=== PATIENT | female | born 1935 | race Caucasian/White ===

== ENCOUNTER 2017-07-01 17:39 | Emergency (ER) | payer MEDICARE, OTHER ==
[~2017-07-01] VITALS: Ht 152.4 cm; Wt 76.2 kg
[~2017-07-01 17:39] MED LIST: ALBU90OI6 INH; CEPH500 PO; CIPR250 PO; CITA20; CITA20 PO; CITALOPRAM HYDROBROM; CITALOPRAM PO; CONEST1.25; CYAN1000 PO; CYAN1000I; CYAN1000I IM; Cipro500 MG PO; ESTR1; ESTR2 PO; ESTRADIOL PO; HYDACE5 PO; IBUP800; LANS30EC; LEVSOD100 PO; LEVSOD88; LIDO5TP TOP; LISI5 PO; LORA10ER; METCAR500 PO; METF500 PO; METF500C PO; METO10 PO; MULTI VITAMIN1 EACH PO; MULVITMINF; Macrobid 100 M100 MG PO; NAPR550 PO; Norco 5-325 Ta1 EACH PO; OXYB5 PO; OXYB5ER PO; POTCHL20ER; POTCHL20ER PO; PRAV20 PO; PROVASTATIN; Pyridium200 MG PO; TOLT4; TRAM50 PO; TRIA80TC TOP; TRIHYD253A; TRIHYD253A PO; TRIHYD253B; TRIHYD253B PO; Ultram50 MG PO; VITAMIN B 12 IM; Zofran Odt4 MG PO; [UNRECOGNIZED DRUG - OTHER]; [UNRECOGNIZED DRUG - REMARK]
[2017-07-01 19:01] LABS: BASOPHILS ABSOLUTE AUTO 0.02 K/mm3 (0.00-0.23); BASOPHILS PERCENT AUTO 0 % (0-2); EOSINOPHILS ABSOLUTE AUTO 0.13 K/mm3 (0.00-0.68); EOSINOPHILS PERCENT AUTO 2 % (0-6); Hemoglobin 12.4 g/dL (11.5-16.0); IMMATURE GRAN ABSOLUTE AUTO 0.01 K/mm3 (0.00-0.10); IMMATURE GRAN PERCENT AUTO 0 % (0-1); LYMPHOCYTES ABSOLUTE AUTO 1.16 K/mm3 (0.84-5.20); LYMPHOCYTES PERCENT AUTO 15 % (21-46); MONOCYTES ABSOLUTE AUTO 0.66 K/mm3 (0.16-1.47); MONOCYTES PERCENT AUTO 9 % (4-13); Mean Corpuscular HGB 28.4 pg (26.0-34.0); Mean Corpuscular HGB Conc 32.6 g/dL (31.5-36.5); Mean Corpuscular Volume 87 fL (80-100); Mean Platelet Volume 12.7 fL (9.1-12.4); NEUTROPHILS ABSOLUTE AUTO 5.55 K/mm3 (1.96-9.15); NEUTROPHILS PERCENT AUTO 74 % (41-73); Platelet Count 206 K/mm3 (150-400); RDW Coefficient Variation 12.8 % (11.7-14.2); RDW Standard Deviation 40.9 fL (35.1-46.3); Red Blood Cell Count 4.37 M/mm3 (3.80-5.20); White Blood Cell Count 7.53 K/mm3 (4.00-11.30)
[2017-07-01] MEDS ORDERED: Augmentin 875-1 EACH PO (19:37)
[2017-07-01] MEDS ORDERED: Pedi-Dri 100,0060 GM TOP (19:37)
[2017-07-01 19:42] LABS: Alanine Aminotransfer (ALT/SGP 18 U/L (12-78); Albumin, Blood 3.7 g/dL (3.4-5.0); Albumin/Globulin Ratio 1.1 (0.8-1.8); Alk Phos 89 U/L (50-136); Anion Gap 7 mmol/L (6-16); Aspartate Aminotrans (AST/SGOT 17 U/L (12-37); Bilirubin, Total 0.3 mg/dL (0.1-1.0); Blood Urea Nitrogen 30 mg/dL (8-24); Bun/Creatinine Ratio 60.1 (12.0-20.0); CO2, Blood 28 mmol/L (21-32); Calcium, Blood 9.1 mg/dL (8.5-10.1); Chloride, Blood 104 mmol/L (98-108); Globulin, Blood 3.5 g/dL (2.2-4.0); Glomerular Filtration Rate >60 (60-); Glucose, Blood 168 mg/dL (70-99); Potassium, Blood 3.3 mmol/L (3.5-5.5); Sodium, Blood 139 mmol/L (136-145); Total Protein, Blood 7.2 g/dL (6.4-8.2)
[2017-07-01] MEDS ORDERED: Bactrim Ds Tab1 EACH PO (20:05)
[2018-04-28] MEDS ORDERED: Bactrim Ds Tab1 EACH PO (12:52)
[2018-04-28] MEDS ORDERED: Pedi-Dri 100,0060 GM TOP (12:52)
[2018-04-28] MEDS ORDERED: CEPH500 PO (12:52)
== END 2017-07-01 20:16 | disposition home or self-care (01) ==
LOC: ER 17:39
PROVIDERS: Emergency Medicine
DX: L03.116 Cellulitis of left lower limb (principal); L03.115 Cellulitis of right lower limb; E11.9 Type 2 diabetes mellitus without complications; I10 Essential (primary) hypertension; E78.5 Hyperlipidemia, unspecified; E03.9 Hypothyroidism, unspecified; Z90.710 Acquired absence of both cervix and uterus; Z90.49 Acquired absence of other specified parts of digestive tract
CPT/HCPCS: 36415; 80053; 83880; 85025; 99283

== ENCOUNTER 2017-10-04 17:15 | Emergency (ER) | payer MEDICARE, OTHER ==
[~2017-10-04] VITALS: Ht 154.9 cm; Wt 69.4 kg
[~2017-10-04 17:15] MED LIST changes: +Augmentin 875-1 EACH PO; +Bactrim Ds Tab1 EACH PO; +Pedi-Dri 100,0060 GM TOP
[2017-10-04] MEDS ORDERED: CYAN1000I IM (17:39)
[2017-10-04] MEDS ORDERED: OXYB5 PO (17:40)
[2017-10-04 18:36] LABS: BASOPHILS ABSOLUTE AUTO 0.03 K/mm3 (0.00-0.23); BASOPHILS PERCENT AUTO 0 % (0-2); EOSINOPHILS ABSOLUTE AUTO 0.14 K/mm3 (0.00-0.68); EOSINOPHILS PERCENT AUTO 2 % (0-6); Hematocrit 36.4 % (33.0-51.0); IMMATURE GRAN ABSOLUTE AUTO 0.03 K/mm3 (0.00-0.10); IMMATURE GRAN PERCENT AUTO 0 % (0-1); LYMPHOCYTES PERCENT AUTO 28 % (21-46); MONOCYTES ABSOLUTE AUTO 0.75 K/mm3 (0.16-1.47); MONOCYTES PERCENT AUTO 10 % (4-13); Mean Corpuscular HGB 28.7 pg (26.0-34.0); Mean Corpuscular Volume 87 fL (80-100); Mean Platelet Volume 12.5 fL (9.1-12.4); NEUTROPHILS ABSOLUTE AUTO 4.59 K/mm3 (1.96-9.15); NEUTROPHILS PERCENT AUTO 59 % (41-73); Platelet Count 217 K/mm3 (150-400); Red Blood Cell Count 4.18 M/mm3 (3.80-5.20); White Blood Cell Count 7.74 K/mm3 (4.00-11.30)
[2017-10-04 18:56] LABS: Alanine Aminotransfer (ALT/SGP 16 U/L (12-78); Albumin, Blood 3.6 g/dL (3.4-5.0); Alk Phos 95 U/L (50-136); Anion Gap 6 mmol/L (6-16); Aspartate Aminotrans (AST/SGOT 17 U/L (12-37); Bilirubin, Total 0.6 mg/dL (0.1-1.0); Blood Urea Nitrogen 22 mg/dL (8-24); Bun/Creatinine Ratio 39.9 (12.0-20.0); CO2, Blood 27 mmol/L (21-32); Calcium, Blood 9.1 mg/dL (8.5-10.1); Chloride, Blood 109 mmol/L (98-108); Creatinine, Blood 0.55 mg/dL (0.40-1.00); Globulin, Blood 3.5 g/dL (2.2-4.0); Glomerular Filtration Rate >60 (60-); Glucose, Blood 96 mg/dL (70-99); Potassium, Blood 3.3 mmol/L (3.5-5.5); Sodium, Blood 142 mmol/L (136-145); Total Protein, Blood 7.1 g/dL (6.4-8.2)
== END 2017-10-04 19:46 | disposition home or self-care (01) ==
LOC: ER 17:15
PROVIDERS: Emergency Medicine
DX: R10.13 Epigastric pain (principal); Z91.048 Other nonmedicinal substance allergy status; Z88.8 Allergy status to other drugs, medicaments and biological substances; Z79.899 Other long term (current) drug therapy; Z79.2 Long term (current) use of antibiotics; E11.9 Type 2 diabetes mellitus without complications; I10 Essential (primary) hypertension
CPT/HCPCS: 36415; 74018; 80053; 83690; 85025; 93005; 93010; 99283

== ENCOUNTER 2017-10-15 10:19 | Emergency (ER) | payer MEDICARE, OTHER ==
[~2017-10-15] VITALS: Ht 154.9 cm; Wt 70.8 kg
[2017-10-15] MEDS ORDERED: FURO40 PO (10:29)
== END 2017-10-15 11:40 | disposition home or self-care (01) ==
LOC: ER 10:19
DX: M25.561 Pain in right knee (principal); E11.9 Type 2 diabetes mellitus without complications; I10 Essential (primary) hypertension; D64.9 Anemia, unspecified; Z91.048 Other nonmedicinal substance allergy status; Z88.6 Allergy status to analgesic agent; Z88.8 Allergy status to other drugs, medicaments and biological substances; Z79.899 Other long term (current) drug therapy
CPT/HCPCS: 36415; 73562-RT; 93971; 99284

== ENCOUNTER 2018-05-22 18:08 | Emergency (ER) | payer MEDICARE, OTHER ==
[~2018-05-22] VITALS: Ht 160 cm; Wt 81.7 kg
[~2018-05-22 18:08] MED LIST changes: +FURO40 PO
[2018-05-22 20:16] LABS: Source, Urine Clean Catch
[2018-05-22 20:21] LABS: Bilirubin, Urine Neg (Neg); Blood, Urine 1+ (Neg); Glucose Qualitative, Urine Neg (Neg); Ketones, Urine Neg (Neg); Leukocyte Esterase, Urine 1+ (Neg); Nitrite, Urine Pos (Neg); Protein, Urine Neg (Neg); Urobilinogen, Urine NORM (Normal)
[2018-05-22 20:30] LABS: BASOPHILS ABSOLUTE AUTO 0.03 K/mm3 (0.00-0.23); BASOPHILS PERCENT AUTO 0 % (0-2); EOSINOPHILS ABSOLUTE AUTO 0.06 K/mm3 (0.00-0.68); EOSINOPHILS PERCENT AUTO 0 % (0-6); Hematocrit 37.6 % (33.0-51.0); Hemoglobin 12.2 g/dL (11.5-16.0); IMMATURE GRAN ABSOLUTE AUTO 0.03 K/mm3 (0.00-0.10); IMMATURE GRAN PERCENT AUTO 0 % (0-1); LYMPHOCYTES ABSOLUTE AUTO 1.85 K/mm3 (0.84-5.20); LYMPHOCYTES PERCENT AUTO 14 % (21-46); MONOCYTES ABSOLUTE AUTO 1.27 K/mm3 (0.16-1.47); MONOCYTES PERCENT AUTO 10 % (4-13); Mean Corpuscular HGB 28.7 pg (26.0-34.0); Mean Corpuscular HGB Conc 32.4 g/dL (31.5-36.5); Mean Corpuscular Volume 89 fL (80-100); Mean Platelet Volume 11.9 fL (9.1-12.4); NEUTROPHILS ABSOLUTE AUTO 10.17 K/mm3 (1.96-9.15); NEUTROPHILS PERCENT AUTO 76 % (41-73); Platelet Count 215 K/mm3 (150-400); RDW Coefficient Variation 13.1 % (11.7-14.2); RDW Standard Deviation 42.4 fL (35.1-46.3); Red Blood Cell Count 4.25 M/mm3 (3.80-5.20); White Blood Cell Count 13.41 K/mm3 (4.00-11.30)
[2018-05-22 20:41] LABS: Appearance, Urine Clear (Clear); Color, Urine Yellow (P-Yellow)
[2018-05-22 20:42] LABS: Bacteria Many /hpf; Red Blood Cells, Urine 0-2 /hpf (0-2); Squamous Epithelial Cells Mod /hpf (Few)
[2018-05-22 20:57] LABS: Anion Gap 6 mmol/L (6-16); Blood Urea Nitrogen 23 mg/dL (8-24); Bun/Creatinine Ratio 42.4 (12.0-20.0); CO2, Blood 25 mmol/L (21-32); Calcium, Blood 8.7 mg/dL (8.5-10.1); Chloride, Blood 107 mmol/L (98-108); Creatinine, Blood 0.54 mg/dL (0.40-1.00); Glomerular Filtration Rate >60 (60-); Glucose, Blood 107 mg/dL (70-99); Potassium, Blood 3.5 mmol/L (3.5-5.5); Sodium, Blood 138 mmol/L (136-145)
[2018-05-22] MEDS ORDERED: Ultram50 MG PO (21:18)
[2018-05-22] MEDS ORDERED: Bactrim Ds Tab1 EACH PO (21:18)
== END 2018-05-22 21:45 | disposition home or self-care (01) ==
LOC: ER 18:08
PROVIDERS: Emergency Medicine
DX: N39.0 Urinary tract infection, site not specified (principal); I10 Essential (primary) hypertension; E11.9 Type 2 diabetes mellitus without complications; Z90.710 Acquired absence of both cervix and uterus; Z90.49 Acquired absence of other specified parts of digestive tract
CPT/HCPCS: 36415; 73140; 80048; 81001; 85025; 87077; 87086; 87186; 99283-25

== ENCOUNTER 2018-05-24 12:20 | Emergency (ER) | payer MEDICARE, OTHER ==
[~2018-05-24] VITALS: Ht 160 cm; Wt 71.7 kg
[2018-05-24] MEDS ORDERED: Voltaren100 GM TOP (13:45)
== END 2018-05-24 13:55 | disposition home or self-care (01) ==
LOC: ER 12:20
DX: S70.01XA Contusion of right hip, initial encounter (principal); S70.11XA Contusion of right thigh, initial encounter; W18.30XA Fall on same level, unspecified, initial encounter; Z91.048 Other nonmedicinal substance allergy status; Z88.8 Allergy status to other drugs, medicaments and biological substances; Z79.899 Other long term (current) drug therapy; E11.9 Type 2 diabetes mellitus without complications; I10 Essential (primary) hypertension; D64.9 Anemia, unspecified
CPT/HCPCS: 73502; 73562-RT; 96372; 99283-25; J1885

== ENCOUNTER 2018-06-02 22:25 | Emergency (ER) | payer MEDICARE, OTHER ==
[~2018-06-02] VITALS: Ht 160 cm; Wt 73.5 kg
[~2018-06-02 22:25] MED LIST changes: +Voltaren100 GM TOP
== END 2018-06-03 00:26 | disposition left against medical advice (07) ==
LOC: ER 22:25
DX: Z53.21 Procedure and treatment not carried out due to patient leaving prior to being seen by health care provider (principal)

== ENCOUNTER 2018-06-16 08:44 | Emergency (ER) | payer MEDICARE, OTHER ==
[~2018-06-16] VITALS: Ht 157.5 cm; Wt 71.7 kg
[2018-06-16] MEDS ORDERED: FLUC150A PO (09:09)
[2018-06-16] MEDS ORDERED: Pedi-Dri 100,0060 GM (09:22)
== END 2018-06-16 10:12 | disposition home or self-care (01) ==
LOC: ER 08:44
DX: B37.2 Candidiasis of skin and nail (principal); Z91.048 Other nonmedicinal substance allergy status; Z88.8 Allergy status to other drugs, medicaments and biological substances; Z79.899 Other long term (current) drug therapy; E11.9 Type 2 diabetes mellitus without complications; I10 Essential (primary) hypertension; D64.9 Anemia, unspecified
CPT/HCPCS: 99282

== ENCOUNTER 2018-06-17 00:05 | Emergency (ER) | payer MEDICARE, OTHER ==
[~2018-06-17] VITALS: Ht 160 cm; Wt 71.2 kg
[~2018-06-17 00:05] MED LIST changes: +FLUC150A PO; +Pedi-Dri 100,0060 GM
[2018-06-17 03:20] LABS: BASOPHILS ABSOLUTE AUTO 0.01 K/mm3 (0.00-0.23); BASOPHILS PERCENT AUTO 0 % (0-2); EOSINOPHILS ABSOLUTE AUTO 0.08 K/mm3 (0.00-0.68); EOSINOPHILS PERCENT AUTO 1 % (0-6); Hematocrit 36.7 % (33.0-51.0); Hemoglobin 11.8 g/dL (11.5-16.0); IMMATURE GRAN ABSOLUTE AUTO 0.03 K/mm3 (0.00-0.10); IMMATURE GRAN PERCENT AUTO 0 % (0-1); LYMPHOCYTES ABSOLUTE AUTO 1.83 K/mm3 (0.84-5.20); LYMPHOCYTES PERCENT AUTO 26 % (21-46); MONOCYTES ABSOLUTE AUTO 0.74 K/mm3 (0.16-1.47); MONOCYTES PERCENT AUTO 10 % (4-13); Mean Corpuscular HGB Conc 32.2 g/dL (31.5-36.5); Mean Corpuscular Volume 90 fL (80-100); Mean Platelet Volume 11.2 fL (9.1-12.4); NEUTROPHILS ABSOLUTE AUTO 4.42 K/mm3 (1.96-9.15); NEUTROPHILS PERCENT AUTO 62 % (41-73); Platelet Count 226 K/mm3 (150-400); RDW Coefficient Variation 13.1 % (11.7-14.2); RDW Standard Deviation 43.4 fL (35.1-46.3); Red Blood Cell Count 4.07 M/mm3 (3.80-5.20); White Blood Cell Count 7.11 K/mm3 (4.00-11.30)
[2018-06-17 03:37] LABS: Alanine Aminotransfer (ALT/SGP 14 U/L (12-78); Albumin, Blood 3.6 g/dL (3.4-5.0); Alk Phos 90 U/L (50-136); Anion Gap 8 mmol/L (6-16); Aspartate Aminotrans (AST/SGOT 15 U/L (12-37); Bilirubin, Total 0.4 mg/dL (0.1-1.0); Blood Urea Nitrogen 23 mg/dL (8-24); Bun/Creatinine Ratio 40.1 (12.0-20.0); CO2, Blood 25 mmol/L (21-32); Calcium, Blood 8.4 mg/dL (8.5-10.1); Chloride, Blood 108 mmol/L (98-108); Creatinine, Blood 0.57 mg/dL (0.40-1.00); Globulin, Blood 3.6 g/dL (2.2-4.0); Glomerular Filtration Rate >60 (60-); Glucose, Blood 114 mg/dL (70-99); Potassium, Blood 3.8 mmol/L (3.5-5.5); Sodium, Blood 141 mmol/L (136-145); Total Protein, Blood 7.2 g/dL (6.4-8.2)
== END 2018-06-17 04:00 | disposition home or self-care (01) ==
LOC: ER 00:05
PROVIDERS: Emergency Medicine
DX: R10.84 Generalized abdominal pain (principal); R19.7 Diarrhea, unspecified; E11.9 Type 2 diabetes mellitus without complications; I10 Essential (primary) hypertension; Z91.048 Other nonmedicinal substance allergy status; Z88.8 Allergy status to other drugs, medicaments and biological substances; Z79.899 Other long term (current) drug therapy
CPT/HCPCS: 36415; 80053; 85025; 99284

== ENCOUNTER 2018-06-22 23:06 | Emergency (ER) | payer MEDICARE, OTHER ==
[~2018-06-22] VITALS: Ht 157.5 cm; Wt 68.0 kg
[2018-06-22 23:29] LABS: Source, Urine Clean Catch
[2018-06-22 23:52] LABS: BASOPHILS ABSOLUTE AUTO 0.02 K/mm3 (0.00-0.23); BASOPHILS PERCENT AUTO 0 % (0-2); EOSINOPHILS ABSOLUTE AUTO 0.05 K/mm3 (0.00-0.68); EOSINOPHILS PERCENT AUTO 1 % (0-6); Hematocrit 37.4 % (33.0-51.0); IMMATURE GRAN ABSOLUTE AUTO 0.03 K/mm3 (0.00-0.10); IMMATURE GRAN PERCENT AUTO 0 % (0-1); LYMPHOCYTES ABSOLUTE AUTO 1.24 K/mm3 (0.84-5.20); LYMPHOCYTES PERCENT AUTO 13 % (21-46); MONOCYTES ABSOLUTE AUTO 1.26 K/mm3 (0.16-1.47); MONOCYTES PERCENT AUTO 13 % (4-13); Mean Corpuscular HGB 28.2 pg (26.0-34.0); Mean Corpuscular HGB Conc 32.1 g/dL (31.5-36.5); Mean Corpuscular Volume 88 fL (80-100); Mean Platelet Volume 11.4 fL (9.1-12.4); NEUTROPHILS ABSOLUTE AUTO 6.91 K/mm3 (1.96-9.15); NEUTROPHILS PERCENT AUTO 73 % (41-73); Platelet Count 217 K/mm3 (150-400); RDW Coefficient Variation 13.2 % (11.7-14.2); RDW Standard Deviation 42.2 fL (35.1-46.3); Red Blood Cell Count 4.26 M/mm3 (3.80-5.20); White Blood Cell Count 9.51 K/mm3 (4.00-11.30)
[2018-06-23 00:13] LABS: Alanine Aminotransfer (ALT/SGP 18 U/L (12-78); Albumin, Blood 3.5 g/dL (3.4-5.0); Albumin/Globulin Ratio 0.9 (0.8-1.8); Alk Phos 96 U/L (50-136); Anion Gap 8 mmol/L (6-16); Aspartate Aminotrans (AST/SGOT 14 U/L (12-37); Bilirubin, Total 0.5 mg/dL (0.1-1.0); Blood Urea Nitrogen 21 mg/dL (8-24); CO2, Blood 26 mmol/L (21-32); Calcium, Blood 8.4 mg/dL (8.5-10.1); Chloride, Blood 106 mmol/L (98-108); Creatinine, Blood 0.68 mg/dL (0.40-1.00); Globulin, Blood 3.8 g/dL (2.2-4.0); Glomerular Filtration Rate >60 (60-); Glucose, Blood 191 mg/dL (70-99); Potassium, Blood 3.6 mmol/L (3.5-5.5); Sodium, Blood 140 mmol/L (136-145); Total Protein, Blood 7.3 g/dL (6.4-8.2)
[2018-06-23 00:43] LABS: Bilirubin, Urine Neg (Neg); Blood, Urine 1+ (Neg); Glucose Qualitative, Urine Neg (Neg); Ketones, Urine Neg (Neg); Leukocyte Esterase, Urine 3+ (Neg); Nitrite, Urine Pos (Neg); Protein, Urine 2+ (Neg); Urobilinogen, Urine NORM (Normal)
[2018-06-23 00:45] LABS: Appearance, Urine Cloudy (Clear); Color, Urine Yellow (P-Yellow)
[2018-06-23 00:49] LABS: White Blood Cells, Urine 50-100 /hpf (0-5)
[2018-06-23 00:50] LABS: Bacteria Many /hpf; Red Blood Cells, Urine 0-2 /hpf (0-2); Squamous Epithelial Cells Few /hpf (Few)
[2018-06-23] MEDS ORDERED: ONDA4ODT MM (00:59)
[2018-06-23] MEDS ORDERED: CEPH500 PO (00:59)
== END 2018-06-23 01:21 | disposition home or self-care (01) ==
LOC: ER 23:06
PROVIDERS: Emergency Medicine
DX: N39.0 Urinary tract infection, site not specified (principal); E11.9 Type 2 diabetes mellitus without complications; I10 Essential (primary) hypertension; Z91.048 Other nonmedicinal substance allergy status; Z88.6 Allergy status to analgesic agent; Z88.8 Allergy status to other drugs, medicaments and biological substances; Z79.899 Other long term (current) drug therapy
CPT/HCPCS: 36415; 74022; 80053; 81001; 85025; 87077; 87086; 87186; 99283-25; J2405; P9612

== ENCOUNTER 2018-08-30 13:58 | Emergency (ER) | payer MEDICARE, OTHER ==
[~2018-08-30] VITALS: Ht 152.4 cm; Wt 68.0 kg
[~2018-08-30 13:58] MED LIST changes: +ONDA4ODT MM
[2018-08-30] MEDS ORDERED: Diflucan100 MG PO (15:46)
[2018-08-30] MEDS ORDERED: Pedi-Dri 100,0060 GM TOP (15:46)
== END 2018-08-30 16:25 | disposition home or self-care (01) ==
LOC: ER 13:58
DX: B37.2 Candidiasis of skin and nail (principal); Z91.018 Allergy to other foods; Z88.8 Allergy status to other drugs, medicaments and biological substances; Z88.6 Allergy status to analgesic agent; Z79.899 Other long term (current) drug therapy; E11.9 Type 2 diabetes mellitus without complications; I10 Essential (primary) hypertension
CPT/HCPCS: 99282

== ENCOUNTER 2018-09-13 07:31 | Emergency (ER) | payer MEDICARE, OTHER ==
[~2018-09-13] VITALS: Ht 160 cm; Wt 72.6 kg
[~2018-09-13 07:31] MED LIST changes: +Diflucan100 MG PO
[2018-09-13 08:20] LABS: Source, Urine Clean Catch
[2018-09-13 08:32] LABS: Bilirubin, Urine Neg (Neg); Blood, Urine Neg (Neg); Color, Urine No Color (P-Yellow); Glucose Qualitative, Urine Neg (Neg); Ketones, Urine Neg (Neg); Leukocyte Esterase, Urine Neg (Neg); Nitrite, Urine Neg (Neg); Protein, Urine Neg (Neg); Specific Gravity, Urine 1.005 (1.003-1.022); Urobilinogen, Urine NORM (Normal); pH, Urine 6.5 (5.0-8.0)
[2018-09-13 08:33] LABS: Appearance, Urine Clear (Clear)
[2018-09-13 09:02] LABS: Source, Urine Clean Catch
[2018-09-13 09:09] LABS: Bilirubin, Urine Neg (Neg); Blood, Urine Neg (Neg); Glucose Qualitative, Urine Neg (Neg); Ketones, Urine Neg (Neg); Leukocyte Esterase, Urine 1+ (Neg); Nitrite, Urine Pos (Neg); Protein, Urine Neg (Neg); Urobilinogen, Urine 1+ (Normal)
[2018-09-13 09:15] LABS: Appearance, Urine Hazy (Clear); Bacteria Mod /hpf; Color, Urine Yellow (P-Yellow); Red Blood Cells, Urine Not Seen /hpf (0-2); Squamous Epithelial Cells Few /hpf (Few)
[2018-09-13] MEDS ORDERED: Keflex500 MG PO (09:41)
== END 2018-09-13 10:24 | disposition home or self-care (01) ==
LOC: ER 07:31
PROVIDERS: Emergency Medicine
DX: N39.0 Urinary tract infection, site not specified (principal); E11.9 Type 2 diabetes mellitus without complications; I10 Essential (primary) hypertension; Z91.048 Other nonmedicinal substance allergy status; Z88.6 Allergy status to analgesic agent; Z88.8 Allergy status to other drugs, medicaments and biological substances
CPT/HCPCS: 81001; 81003; 87077; 87086; 87186; 99283

== ENCOUNTER 2018-09-28 11:57 | Emergency (ER) | payer MEDICARE, OTHER ==
[~2018-09-28] VITALS: Ht 154.9 cm; Wt 68.0 kg
[~2018-09-28 11:57] MED LIST changes: +Keflex500 MG PO; +Nystatin15 GM TOP
[2018-09-28 13:16] LABS: BASOPHILS ABSOLUTE AUTO 0.02 K/mm3 (0.00-0.23); BASOPHILS PERCENT AUTO 0 % (0-2); EOSINOPHILS ABSOLUTE AUTO 0.13 K/mm3 (0.00-0.68); EOSINOPHILS PERCENT AUTO 2 % (0-6); Hemoglobin 11.7 g/dL (11.5-16.0); IMMATURE GRAN ABSOLUTE AUTO 0.02 K/mm3 (0.00-0.10); IMMATURE GRAN PERCENT AUTO 0 % (0-1); LYMPHOCYTES ABSOLUTE AUTO 1.85 K/mm3 (0.84-5.20); LYMPHOCYTES PERCENT AUTO 25 % (21-46); MONOCYTES ABSOLUTE AUTO 0.78 K/mm3 (0.16-1.47); MONOCYTES PERCENT AUTO 10 % (4-13); Mean Corpuscular HGB 27.8 pg (26.0-34.0); Mean Corpuscular HGB Conc 31.6 g/dL (31.5-36.5); Mean Corpuscular Volume 88 fL (80-100); Mean Platelet Volume 11.6 fL (9.1-12.4); NEUTROPHILS ABSOLUTE AUTO 4.69 K/mm3 (1.96-9.15); NEUTROPHILS PERCENT AUTO 63 % (41-73); Platelet Count 241 K/mm3 (150-400); RDW Coefficient Variation 13.6 % (11.7-14.2); RDW Standard Deviation 43.8 fL (35.1-46.3); Red Blood Cell Count 4.21 M/mm3 (3.80-5.20); White Blood Cell Count 7.49 K/mm3 (4.00-11.30)
[2018-09-28 13:52] LABS: Alanine Aminotransfer (ALT/SGP 15 U/L (12-78); Albumin, Blood 3.4 g/dL (3.4-5.0); Albumin/Globulin Ratio 0.9 (0.8-1.8); Alk Phos 99 U/L (50-136); Anion Gap 7 mmol/L (6-16); Aspartate Aminotrans (AST/SGOT 13 U/L (12-37); Bilirubin, Total 0.6 mg/dL (0.1-1.0); Blood Urea Nitrogen 18 mg/dL (8-24); Bun/Creatinine Ratio 38.1 (12.0-20.0); CO2, Blood 24 mmol/L (21-32); Calcium, Blood 8.7 mg/dL (8.5-10.1); Chloride, Blood 108 mmol/L (98-108); Creatinine, Blood 0.47 mg/dL (0.40-1.00); Globulin, Blood 3.9 g/dL (2.2-4.0); Glomerular Filtration Rate >60 (60-); Glucose, Blood 109 mg/dL (70-99); Potassium, Blood 3.4 mmol/L (3.5-5.5); Sodium, Blood 139 mmol/L (136-145); Total Protein, Blood 7.3 g/dL (6.4-8.2)
[2018-09-28 13:53] LABS: Troponin I <0.015 ng/mL (0.000-0.040)
== END 2018-09-28 17:33 | disposition left against medical advice (07) ==
LOC: ER 11:57
PROVIDERS: Physician Assistant
DX: Z53.21 Procedure and treatment not carried out due to patient leaving prior to being seen by health care provider (principal); M79.604 Pain in right leg; M79.605 Pain in left leg
CPT/HCPCS: 36415; 80053; 83880; 84484; 85025; 93005; 93010

== ENCOUNTER 2018-10-01 17:42 | Emergency (ER) | payer MEDICARE, OTHER ==
[~2018-10-01] VITALS: Ht 157.5 cm; Wt 69.4 kg
[2018-10-01] MEDS ORDERED: Nyamyc15 GM TOP (19:09)
[2018-10-01] MEDS ORDERED: CEPH500 PO (19:09)
== END 2018-10-01 19:24 | disposition home or self-care (01) ==
LOC: ER 17:42
DX: N39.0 Urinary tract infection, site not specified (principal); L30.4 Erythema intertrigo; M25.562 Pain in left knee; Z91.048 Other nonmedicinal substance allergy status; Z88.8 Allergy status to other drugs, medicaments and biological substances; Z79.899 Other long term (current) drug therapy; E11.9 Type 2 diabetes mellitus without complications; I10 Essential (primary) hypertension; E03.9 Hypothyroidism, unspecified
CPT/HCPCS: 99283

== ENCOUNTER 2018-10-21 18:44 | Emergency (ER) | payer MEDICARE, OTHER ==
[~2018-10-21] VITALS: Ht 160 cm; Wt 65.8 kg
[~2018-10-21 18:44] MED LIST changes: +Nyamyc15 GM TOP
[2018-10-21] MEDS ORDERED: Keflex500 MG PO (20:45)
[2018-10-22] MEDS ORDERED: Nystatin15 GM TOP (19:16)
[2018-10-22] MEDS ORDERED: Keflex500 MG PO (19:16)
== END 2018-10-21 20:52 | disposition home or self-care (01) ==
LOC: ER 18:44
DX: M25.562 Pain in left knee (principal); N39.0 Urinary tract infection, site not specified; Z91.048 Other nonmedicinal substance allergy status; Z88.8 Allergy status to other drugs, medicaments and biological substances; Z88.6 Allergy status to analgesic agent; Z79.899 Other long term (current) drug therapy; I10 Essential (primary) hypertension; E11.9 Type 2 diabetes mellitus without complications
CPT/HCPCS: 82947; 99283

== ENCOUNTER 2018-10-22 18:41 | Emergency (ER) | payer MEDICARE, OTHER ==
[~2018-10-22] VITALS: Ht 152.4 cm; Wt 68.0 kg
[2018-10-22] MEDS ORDERED: Nystatin15 GM TOP (19:16)
[2018-10-22] MEDS ORDERED: Keflex500 MG PO (19:16)
== END 2018-10-22 19:25 | disposition home or self-care (01) ==
LOC: ER 18:41
DX: N39.0 Urinary tract infection, site not specified (principal); B37.49 Other urogenital candidiasis; E11.9 Type 2 diabetes mellitus without complications; I10 Essential (primary) hypertension; Z79.899 Other long term (current) drug therapy; Z91.048 Other nonmedicinal substance allergy status; Z88.6 Allergy status to analgesic agent; Z88.8 Allergy status to other drugs, medicaments and biological substances
CPT/HCPCS: 99281

== ENCOUNTER 2018-10-27 18:20 | Emergency (ER) | payer MEDICARE, OTHER ==
[~2018-10-27] VITALS: Ht 157.5 cm; Wt 69.4 kg
[2018-10-28] MEDS ORDERED: Voltaren100 GM TOP (10:15)
== END 2018-10-27 19:44 | disposition home or self-care (01) ==
LOC: ER 18:20
DX: M25.562 Pain in left knee (principal); Z91.048 Other nonmedicinal substance allergy status; Z88.8 Allergy status to other drugs, medicaments and biological substances; Z79.899 Other long term (current) drug therapy; E11.9 Type 2 diabetes mellitus without complications; I10 Essential (primary) hypertension
CPT/HCPCS: 73562-LT; 99283-25

== ENCOUNTER 2018-11-18 20:24 | Emergency (ER) | payer MEDICARE, OTHER ==
[~2018-11-18] VITALS: Ht 157.5 cm; Wt 69.4 kg
[2018-11-18 20:45] LABS: Source, Urine Clean Catch
[2018-11-18 20:48] LABS: Bilirubin, Urine Neg (Neg); Blood, Urine Neg (Neg); Glucose Qualitative, Urine Neg (Neg); Ketones, Urine Neg (Neg); Leukocyte Esterase, Urine 1+ (Neg); Nitrite, Urine Neg (Neg); Protein, Urine Neg (Neg); Urobilinogen, Urine 2+ (Normal)
[2018-11-18 20:58] LABS: BASOPHILS ABSOLUTE AUTO 0.02 K/mm3 (0.00-0.23); BASOPHILS PERCENT AUTO 0 % (0-2); EOSINOPHILS ABSOLUTE AUTO 0.11 K/mm3 (0.00-0.68); EOSINOPHILS PERCENT AUTO 2 % (0-6); Hematocrit 37.9 % (33.0-51.0); Hemoglobin 12.1 g/dL (11.5-16.0); IMMATURE GRAN ABSOLUTE AUTO 0.02 K/mm3 (0.00-0.10); IMMATURE GRAN PERCENT AUTO 0 % (0-1); LYMPHOCYTES ABSOLUTE AUTO 2.65 K/mm3 (0.84-5.20); LYMPHOCYTES PERCENT AUTO 37 % (21-46); MONOCYTES ABSOLUTE AUTO 0.77 K/mm3 (0.16-1.47); MONOCYTES PERCENT AUTO 11 % (4-13); Mean Corpuscular HGB 27.9 pg (26.0-34.0); Mean Corpuscular HGB Conc 31.9 g/dL (31.5-36.5); Mean Corpuscular Volume 87 fL (80-100); Mean Platelet Volume 11.4 fL (9.1-12.4); NEUTROPHILS ABSOLUTE AUTO 3.63 K/mm3 (1.96-9.15); NEUTROPHILS PERCENT AUTO 50 % (41-73); Platelet Count 239 K/mm3 (150-400); RDW Coefficient Variation 13.8 % (11.7-14.2); RDW Standard Deviation 44.5 fL (35.1-46.3); Red Blood Cell Count 4.34 M/mm3 (3.80-5.20)
[2018-11-18 20:58] LABS: Appearance, Urine Hazy (Clear); Color, Urine Yellow (P-Yellow)
[2018-11-18 20:59] LABS: Bacteria Many /hpf; Mucus Light (0-Heavy); Red Blood Cells, Urine 0-2 /hpf (0-2); Squamous Epithelial Cells Few /hpf (Few)
[2018-11-18 21:18] LABS: Alanine Aminotransfer (ALT/SGP 16 U/L (12-78); Albumin, Blood 3.7 g/dL (3.4-5.0); Albumin/Globulin Ratio 1.2 (0.8-1.8); Alk Phos 83 U/L (50-136); Anion Gap 8 mmol/L (6-16); Aspartate Aminotrans (AST/SGOT 15 U/L (12-37); Bilirubin, Total 0.3 mg/dL (0.1-1.0); Blood Urea Nitrogen 19 mg/dL (8-24); Bun/Creatinine Ratio 28.9 (12.0-20.0); CO2, Blood 27 mmol/L (21-32); Calcium, Blood 8.7 mg/dL (8.5-10.1); Chloride, Blood 106 mmol/L (98-108); Creatinine, Blood 0.66 mg/dL (0.40-1.00); Globulin, Blood 3.2 g/dL (2.2-4.0); Glomerular Filtration Rate >60 (60-); Glucose, Blood 120 mg/dL (70-99); Potassium, Blood 3.8 mmol/L (3.5-5.5); Sodium, Blood 141 mmol/L (136-145); Total Protein, Blood 6.9 g/dL (6.4-8.2)
== END 2018-11-18 21:35 | disposition left against medical advice (07) ==
LOC: ER 20:24
PROVIDERS: Physician Assistant
DX: R10.9 Unspecified abdominal pain (principal); Z53.20 Procedure and treatment not carried out because of patient's decision for unspecified reasons
CPT/HCPCS: 36415; 74176; 80053; 81001; 83690; 85025; 87077; 87086; 87186; 99284-25

== ENCOUNTER 2018-12-31 05:04 | Emergency (ER) | payer MEDICARE, OTHER ==
[~2018-12-31] VITALS: Ht 160 cm; Wt 74.8 kg
[2018-12-31] MEDS ORDERED: Tylenol325 MG PO (05:21)
== END 2018-12-31 05:41 | disposition home or self-care (01) ==
LOC: ER 05:04
DX: M25.562 Pain in left knee (principal); G89.29 Other chronic pain; E11.9 Type 2 diabetes mellitus without complications; I10 Essential (primary) hypertension; K21.9 Gastro-esophageal reflux disease without esophagitis; Z88.6 Allergy status to analgesic agent; Z91.048 Other nonmedicinal substance allergy status
CPT/HCPCS: 99283

== ENCOUNTER 2019-01-02 03:38 | Emergency (ER) | payer MEDICARE, OTHER ==
[~2019-01-02] VITALS: Ht 162.6 cm; Wt 79.4 kg
[~2019-01-02 03:38] MED LIST changes: +Tylenol325 MG PO
[2019-01-02 04:16] LABS: BASOPHILS ABSOLUTE AUTO 0.04 K/mm3 (0.00-0.23); BASOPHILS PERCENT AUTO 1 % (0-2); EOSINOPHILS ABSOLUTE AUTO 0.34 K/mm3 (0.00-0.68); EOSINOPHILS PERCENT AUTO 5 % (0-6); Hematocrit 35.6 % (33.0-51.0); Hemoglobin 11.3 g/dL (11.5-16.0); IMMATURE GRAN ABSOLUTE AUTO 0.03 K/mm3 (0.00-0.10); IMMATURE GRAN PERCENT AUTO 0 % (0-1); LYMPHOCYTES ABSOLUTE AUTO 2.13 K/mm3 (0.84-5.20); LYMPHOCYTES PERCENT AUTO 31 % (21-46); MONOCYTES ABSOLUTE AUTO 0.81 K/mm3 (0.16-1.47); MONOCYTES PERCENT AUTO 12 % (4-13); Mean Corpuscular HGB 28.3 pg (26.0-34.0); Mean Corpuscular HGB Conc 31.7 g/dL (31.5-36.5); Mean Corpuscular Volume 89 fL (80-100); Mean Platelet Volume 11.4 fL (9.1-12.4); NEUTROPHILS ABSOLUTE AUTO 3.52 K/mm3 (1.96-9.15); NEUTROPHILS PERCENT AUTO 51 % (41-73); Platelet Count 234 K/mm3 (150-400); RDW Coefficient Variation 13.3 % (11.7-14.2); RDW Standard Deviation 43.5 fL (35.1-46.3); White Blood Cell Count 6.87 K/mm3 (4.00-11.30)
[2019-01-02] MEDS ORDERED: Zoloft50 MG PO (04:24)
[2019-01-02 04:36] LABS: Alanine Aminotransfer (ALT/SGP 15 U/L (12-78); Albumin, Blood 3.3 g/dL (3.4-5.0); Albumin/Globulin Ratio 0.9 (0.8-1.8); Alk Phos 90 U/L (50-136); Anion Gap 6 mmol/L (6-16); Aspartate Aminotrans (AST/SGOT 9 U/L (12-37); Bilirubin, Total 0.2 mg/dL (0.1-1.0); Blood Urea Nitrogen 25 mg/dL (8-24); Bun/Creatinine Ratio 52.1 (12.0-20.0); CO2, Blood 26 mmol/L (21-32); Calcium, Blood 8.7 mg/dL (8.5-10.1); Chloride, Blood 110 mmol/L (98-108); Creatinine, Blood 0.48 mg/dL (0.40-1.00); Globulin, Blood 3.5 g/dL (2.2-4.0); Glomerular Filtration Rate >60 (60-); Glucose, Blood 113 mg/dL (70-99); Potassium, Blood 3.5 mmol/L (3.5-5.5); Sodium, Blood 142 mmol/L (136-145); Total Protein, Blood 6.8 g/dL (6.4-8.2); Troponin I <0.015 ng/mL (0.000-0.040)
== END 2019-01-02 07:16 | disposition home or self-care (01) ==
LOC: ER 03:38
PROVIDERS: Emergency Medicine
DX: R10.84 Generalized abdominal pain (principal); Z91.048 Other nonmedicinal substance allergy status; Z88.8 Allergy status to other drugs, medicaments and biological substances; Z88.6 Allergy status to analgesic agent; E11.9 Type 2 diabetes mellitus without complications; I10 Essential (primary) hypertension
CPT/HCPCS: 36415; 71046; 74176; 80053; 83690; 84484; 85025; 93005; 93010; 96360; 96361; 99284-25; J2405; J7030

== ENCOUNTER 2019-01-06 10:27 | Emergency (ER) | payer MEDICARE, OTHER ==
[~2019-01-06] VITALS: Ht 160 cm; Wt 72.6 kg
[~2019-01-06 10:27] MED LIST changes: +Zoloft50 MG PO
[2019-01-06 11:10] LABS: BASOPHILS ABSOLUTE AUTO 0.04 K/mm3 (0.00-0.23); BASOPHILS PERCENT AUTO 1 % (0-2); EOSINOPHILS ABSOLUTE AUTO 0.15 K/mm3 (0.00-0.68); EOSINOPHILS PERCENT AUTO 2 % (0-6); Hematocrit 34.9 % (33.0-51.0); Hemoglobin 11.4 g/dL (11.5-16.0); IMMATURE GRAN ABSOLUTE AUTO 0.03 K/mm3 (0.00-0.10); IMMATURE GRAN PERCENT AUTO 0 % (0-1); LYMPHOCYTES ABSOLUTE AUTO 1.74 K/mm3 (0.84-5.20); LYMPHOCYTES PERCENT AUTO 25 % (21-46); MONOCYTES ABSOLUTE AUTO 0.73 K/mm3 (0.16-1.47); MONOCYTES PERCENT AUTO 10 % (4-13); Mean Corpuscular HGB 27.7 pg (26.0-34.0); Mean Corpuscular HGB Conc 32.7 g/dL (31.5-36.5); Mean Platelet Volume 12.2 fL (9.1-12.4); NEUTROPHILS ABSOLUTE AUTO 4.35 K/mm3 (1.96-9.15); NEUTROPHILS PERCENT AUTO 62 % (41-73); Platelet Count 252 K/mm3 (150-400); RDW Coefficient Variation 13.1 % (11.7-14.2); RDW Standard Deviation 40.3 fL (35.1-46.3); Red Blood Cell Count 4.12 M/mm3 (3.80-5.20); White Blood Cell Count 7.04 K/mm3 (4.00-11.30)
[2019-01-06 11:14] LABS: Mean Corpuscular Volume 85 fL (80-100)
[2019-01-06 11:25] LABS: Alanine Aminotransfer (ALT/SGP 14 U/L (12-78); Albumin, Blood 3.3 g/dL (3.4-5.0); Alk Phos 92 U/L (50-136); Anion Gap 8 mmol/L (6-16); Aspartate Aminotrans (AST/SGOT 17 U/L (12-37); Bilirubin, Total 0.4 mg/dL (0.1-1.0); Blood Urea Nitrogen 19 mg/dL (8-24); Bun/Creatinine Ratio 38.8 (12.0-20.0); CO2, Blood 26 mmol/L (21-32); Calcium, Blood 8.2 mg/dL (8.5-10.1); Chloride, Blood 107 mmol/L (98-108); Creatinine, Blood 0.49 mg/dL (0.40-1.00); Globulin, Blood 3.3 g/dL (2.2-4.0); Glomerular Filtration Rate >60 (60-); Glucose, Blood 107 mg/dL (70-99); Sodium, Blood 141 mmol/L (136-145); Total Protein, Blood 6.6 g/dL (6.4-8.2)
[2019-01-06] MEDS ORDERED: ALBU90OI INH (12:37)
[2019-01-07] MEDS ORDERED: Cyclobenzaprine5 MG PO (15:17)
== END 2019-01-06 13:17 | disposition home or self-care (01) ==
LOC: ER 10:27
PROVIDERS: Emergency Medicine
DX: R06.02 Shortness of breath (principal); E11.9 Type 2 diabetes mellitus without complications; I10 Essential (primary) hypertension; Z88.8 Allergy status to other drugs, medicaments and biological substances; Z91.048 Other nonmedicinal substance allergy status; Z88.6 Allergy status to analgesic agent
CPT/HCPCS: 36415; 71046; 80053; 83880; 85025; 99284-25

== ENCOUNTER 2019-01-06 19:54 | Emergency (ER) | payer MEDICARE, OTHER ==
[~2019-01-06] VITALS: Ht 160 cm; Wt 68.0 kg
[~2019-01-06 19:54] MED LIST changes: +ALBU90OI INH
[2019-01-07] MEDS ORDERED: Cyclobenzaprine5 MG PO (15:17)
== END 2019-01-06 21:34 | disposition home or self-care (01) ==
LOC: ER 19:54
DX: S86.912A Strain of unspecified muscle(s) and tendon(s) at lower leg level, left leg, initial encounter (principal); X58.XXXA Exposure to other specified factors, initial encounter; Z88.8 Allergy status to other drugs, medicaments and biological substances; Z88.6 Allergy status to analgesic agent; Z91.048 Other nonmedicinal substance allergy status; E11.9 Type 2 diabetes mellitus without complications; I10 Essential (primary) hypertension
CPT/HCPCS: 29505; 93005; 93010; 99283-25

== ENCOUNTER 2019-01-07 14:44 | Emergency (ER) | payer MEDICARE, OTHER ==
[~2019-01-07] VITALS: Ht 154.9 cm; Wt 70.3 kg
[2019-01-07] MEDS ORDERED: Cyclobenzaprine5 MG PO (15:17)
== END 2019-01-07 15:28 | disposition home or self-care (01) ==
LOC: ER 14:44
DX: S46.912A Strain of unspecified muscle, fascia and tendon at shoulder and upper arm level, left arm, initial encounter (principal); W19.XXXA Unspecified fall, initial encounter; Z88.6 Allergy status to analgesic agent; Z88.8 Allergy status to other drugs, medicaments and biological substances; Z91.048 Other nonmedicinal substance allergy status; E11.9 Type 2 diabetes mellitus without complications; I10 Essential (primary) hypertension; D64.9 Anemia, unspecified
CPT/HCPCS: 99283

== ENCOUNTER 2019-01-09 20:14 | Emergency (ER) | payer MEDICARE, OTHER ==
[~2019-01-09] VITALS: Ht 154.9 cm; Wt 68.0 kg
[~2019-01-09 20:14] MED LIST changes: +Cyclobenzaprine5 MG PO
[2019-01-09] MEDS ORDERED: LAMO25 PO (23:23)
[2019-01-09] MEDS ORDERED: FLUO10 PO (23:23)
[2019-01-09] MEDS ORDERED: BUSP5 PO (23:24)
== END 2019-01-10 00:10 | disposition home or self-care (01) ==
LOC: ER 20:14
DX: S30.0XXA Contusion of lower back and pelvis, initial encounter (principal); M79.605 Pain in left leg; E11.9 Type 2 diabetes mellitus without complications; I10 Essential (primary) hypertension; G89.29 Other chronic pain; E03.9 Hypothyroidism, unspecified; K21.9 Gastro-esophageal reflux disease without esophagitis; Z88.6 Allergy status to analgesic agent; Z88.8 Allergy status to other drugs, medicaments and biological substances; W18.30XA Fall on same level, unspecified, initial encounter; Z91.048 Other nonmedicinal substance allergy status; Z79.899 Other long term (current) drug therapy
CPT/HCPCS: 73522; 99283; 99283-25; A9270-GY

== ENCOUNTER 2019-01-10 15:44 | Emergency (ER) | payer MEDICARE, OTHER ==
[~2019-01-10] VITALS: Ht 154.9 cm; Wt 69.4 kg
[~2019-01-10 15:44] MED LIST changes: +BUSP5 PO; +FLUO10 PO; +LAMO25 PO
== END 2019-01-10 17:16 | disposition home or self-care (01) ==
LOC: ER 15:44
DX: M79.604 Pain in right leg (principal); Z88.6 Allergy status to analgesic agent; Z88.8 Allergy status to other drugs, medicaments and biological substances; Z91.048 Other nonmedicinal substance allergy status; Z79.899 Other long term (current) drug therapy; E11.9 Type 2 diabetes mellitus without complications; I10 Essential (primary) hypertension; D64.9 Anemia, unspecified
CPT/HCPCS: 99283

== ENCOUNTER 2019-04-04 21:04 | Emergency (ER) | payer MEDICARE, OTHER ==
[~2019-04-04] VITALS: Ht 160 cm; Wt 65.8 kg
[2019-04-04] MEDS ORDERED: Colace100 MG PO (22:54)
== END 2019-04-04 23:15 | disposition home or self-care (01) ==
LOC: ER 21:04
DX: K59.00 Constipation, unspecified (principal); E11.9 Type 2 diabetes mellitus without complications; I10 Essential (primary) hypertension; Z88.8 Allergy status to other drugs, medicaments and biological substances; Z91.048 Other nonmedicinal substance allergy status
CPT/HCPCS: 99283

== ENCOUNTER 2019-04-17 17:06 | Emergency (ER) | payer MEDICARE, OTHER ==
[~2019-04-17] VITALS: Ht 160 cm; Wt 68.0 kg
[~2019-04-17 17:06] MED LIST changes: +Colace100 MG PO
[2019-04-17 18:02] LABS: BASOPHILS ABSOLUTE AUTO 0.02 K/mm3 (0.00-0.23); BASOPHILS PERCENT AUTO 0 % (0-2); EOSINOPHILS PERCENT AUTO 1 % (0-6); Hematocrit 39.6 % (33.0-51.0); Hemoglobin 12.8 g/dL (11.5-16.0); IMMATURE GRAN ABSOLUTE AUTO 0.02 K/mm3 (0.00-0.10); IMMATURE GRAN PERCENT AUTO 0 % (0-1); LYMPHOCYTES ABSOLUTE AUTO 2.67 K/mm3 (0.84-5.20); LYMPHOCYTES PERCENT AUTO 33 % (21-46); MONOCYTES PERCENT AUTO 10 % (4-13); Mean Corpuscular HGB 28.9 pg (26.0-34.0); Mean Corpuscular HGB Conc 32.3 g/dL (31.5-36.5); Mean Corpuscular Volume 89 fL (80-100); Mean Platelet Volume 11.1 fL (9.1-12.4); NEUTROPHILS ABSOLUTE AUTO 4.47 K/mm3 (1.96-9.15); NEUTROPHILS PERCENT AUTO 56 % (41-73); Platelet Count 270 K/mm3 (150-400); RDW Coefficient Variation 13.1 % (11.7-14.2); RDW Standard Deviation 42.7 fL (35.1-46.3); Red Blood Cell Count 4.43 M/mm3 (3.80-5.20); White Blood Cell Count 8.08 K/mm3 (4.00-11.30)
[2019-04-17 18:19] LABS: Alanine Aminotransfer (ALT/SGP 16 U/L (12-78); Albumin, Blood 3.9 g/dL (3.4-5.0); Albumin/Globulin Ratio 1.1 (0.8-1.8); Alk Phos 93 U/L (50-136); Anion Gap 9 mmol/L (6-16); Aspartate Aminotrans (AST/SGOT 13 U/L (12-37); Bilirubin, Total 0.4 mg/dL (0.1-1.0); Blood Urea Nitrogen 31 mg/dL (8-24); Bun/Creatinine Ratio 48.1 (12.0-20.0); CO2, Blood 25 mmol/L (21-32); Calcium, Blood 9.1 mg/dL (8.5-10.1); Chloride, Blood 109 mmol/L (98-108); Creatinine, Blood 0.64 mg/dL (0.40-1.00); Globulin, Blood 3.7 g/dL (2.2-4.0); Glomerular Filtration Rate >60 (60-); Glucose, Blood 115 mg/dL (70-99); Potassium, Blood 3.8 mmol/L (3.5-5.5); Sodium, Blood 143 mmol/L (136-145); Total Protein, Blood 7.6 g/dL (6.4-8.2)
[2019-04-17] MEDS ORDERED: Pyridium100 MG PO (20:14)
== END 2019-04-17 20:45 | disposition home or self-care (01) ==
LOC: ER 17:06
PROVIDERS: Physician Assistant
DX: N39.0 Urinary tract infection, site not specified (principal); E11.9 Type 2 diabetes mellitus without complications; I10 Essential (primary) hypertension; Z91.048 Other nonmedicinal substance allergy status; Z88.8 Allergy status to other drugs, medicaments and biological substances
CPT/HCPCS: 36415; 74176; 80053; 83690; 85025; 99284-25; A9270

== ENCOUNTER 2019-04-23 11:28 | Emergency (ER) | payer MEDICARE, OTHER ==
[~2019-04-23] VITALS: Ht 157.5 cm; Wt 63.5 kg
[~2019-04-23 11:28] MED LIST changes: +Pyridium100 MG PO
[2019-04-23] MEDS ORDERED: Ventolin/Prove6.7 GM INH (11:42)
== END 2019-04-23 13:30 | disposition home or self-care (01) ==
LOC: ER 11:28
DX: M25.561 Pain in right knee (principal); E11.9 Type 2 diabetes mellitus without complications; I10 Essential (primary) hypertension; E03.9 Hypothyroidism, unspecified; D64.9 Anemia, unspecified; Z91.048 Other nonmedicinal substance allergy status; Z88.6 Allergy status to analgesic agent; Z88.8 Allergy status to other drugs, medicaments and biological substances; Z79.899 Other long term (current) drug therapy; Z79.51 Long term (current) use of inhaled steroids
CPT/HCPCS: 73562-RT; 99283-25

== ENCOUNTER 2019-04-26 06:00 | Emergency (ER) | payer MEDICARE, OTHER ==
[~2019-04-26] VITALS: Ht 157.5 cm; Wt 68.0 kg
[~2019-04-26 06:00] MED LIST changes: +Ventolin/Prove6.7 GM INH
== END 2019-04-26 07:39 | disposition home or self-care (01) ==
LOC: ER 06:00
DX: S43.401A Unspecified sprain of right shoulder joint, initial encounter (principal); S50.01XA Contusion of right elbow, initial encounter; E11.9 Type 2 diabetes mellitus without complications; I10 Essential (primary) hypertension; W01.0XXA Fall on same level from slipping, tripping and stumbling without subsequent striking against object, initial encounter
CPT/HCPCS: 73030; 73070; 90471; 90714; 99283-25

== ENCOUNTER 2019-05-01 10:17 | Emergency (ER) | payer MEDICARE, OTHER ==
[~2019-05-01] VITALS: Ht 160 cm; Wt 68.0 kg
== END 2019-05-01 11:17 | disposition home or self-care (01) ==
LOC: ER 10:17
DX: M62.81 Muscle weakness (generalized) (principal); E11.9 Type 2 diabetes mellitus without complications; E03.9 Hypothyroidism, unspecified; I10 Essential (primary) hypertension; Z88.8 Allergy status to other drugs, medicaments and biological substances; Z91.048 Other nonmedicinal substance allergy status; Z79.51 Long term (current) use of inhaled steroids
CPT/HCPCS: 99283

== ENCOUNTER 2019-05-05 16:56 | Emergency (ER) | payer MEDICARE, OTHER ==
[~2019-05-05] VITALS: Ht 160 cm; Wt 68.0 kg
[2019-05-05] MEDS ORDERED: LIDO700A20 TOP (17:31)
[2019-05-06] MEDS ORDERED: LIDO700A20 TOP (04:36)
== END 2019-05-05 19:44 | disposition home or self-care (01) ==
LOC: ER 16:56
DX: S29.012A Strain of muscle and tendon of back wall of thorax, initial encounter (principal); X58.XXXA Exposure to other specified factors, initial encounter; Z91.048 Other nonmedicinal substance allergy status; Z88.6 Allergy status to analgesic agent; Z88.8 Allergy status to other drugs, medicaments and biological substances; E11.9 Type 2 diabetes mellitus without complications; I10 Essential (primary) hypertension
CPT/HCPCS: 72070; 99283-25

== ENCOUNTER 2019-05-06 02:58 | Emergency (ER) | payer MEDICARE, OTHER ==
[~2019-05-06] VITALS: Ht 160 cm; Wt 68.0 kg
[~2019-05-06 02:58] MED LIST changes: +LIDO700A20 TOP
[2019-05-06] MEDS ORDERED: LIDO700A20 TOP (04:36)
== END 2019-05-06 05:20 | disposition home or self-care (01) ==
LOC: ER 02:58
DX: G89.29 Other chronic pain (principal); M54.6 Pain in thoracic spine; E11.9 Type 2 diabetes mellitus without complications; I10 Essential (primary) hypertension; E03.9 Hypothyroidism, unspecified; D64.9 Anemia, unspecified; K21.9 Gastro-esophageal reflux disease without esophagitis; Z88.6 Allergy status to analgesic agent; Z88.8 Allergy status to other drugs, medicaments and biological substances; Z91.048 Other nonmedicinal substance allergy status; Z87.891 Personal history of nicotine dependence
CPT/HCPCS: 99283; A9270

== ENCOUNTER 2019-05-20 15:25 | Emergency (ER) | payer MEDICARE, OTHER ==
[~2019-05-20] VITALS: Ht 157.5 cm; Wt 61.2 kg
== END 2019-05-20 17:52 | disposition home or self-care (01) ==
LOC: ER 15:25
DX: S83.92XA Sprain of unspecified site of left knee, initial encounter (principal); I10 Essential (primary) hypertension; E11.9 Type 2 diabetes mellitus without complications; D64.9 Anemia, unspecified; Z91.048 Other nonmedicinal substance allergy status; Z88.6 Allergy status to analgesic agent; Z88.8 Allergy status to other drugs, medicaments and biological substances; Z87.891 Personal history of nicotine dependence; X58.XXXA Exposure to other specified factors, initial encounter
CPT/HCPCS: 93971; 99283-25

== ENCOUNTER 2019-05-21 08:23 | Emergency (ER) | payer MEDICARE, OTHER ==
[~2019-05-21] VITALS: Ht 160 cm; Wt 68.0 kg
== END 2019-05-21 10:19 | disposition home or self-care (01) ==
LOC: ER 08:23
DX: M25.562 Pain in left knee (principal); G89.29 Other chronic pain; E11.9 Type 2 diabetes mellitus without complications; I10 Essential (primary) hypertension; Z91.048 Other nonmedicinal substance allergy status; Z88.6 Allergy status to analgesic agent; Z88.8 Allergy status to other drugs, medicaments and biological substances; Z87.891 Personal history of nicotine dependence; Z59.0 Homelessness
CPT/HCPCS: 73562-LT; 99283-25

== ENCOUNTER 2019-06-24 09:28 | Emergency (ER) | payer MEDICARE, OTHER ==
[~2019-06-24] VITALS: Ht 160 cm; Wt 68.0 kg
[2019-06-24] MEDS ORDERED: ERYT1OIN LEFTEYE (10:33)
== END 2019-06-24 10:39 | disposition home or self-care (01) ==
LOC: ER 09:28
DX: H01.006 Unspecified blepharitis left eye, unspecified eyelid (principal); E11.9 Type 2 diabetes mellitus without complications; I10 Essential (primary) hypertension; Z91.048 Other nonmedicinal substance allergy status; Z88.6 Allergy status to analgesic agent; Z88.8 Allergy status to other drugs, medicaments and biological substances; Z87.891 Personal history of nicotine dependence
CPT/HCPCS: 99282

== ENCOUNTER 2019-07-03 17:55 | Emergency (ER) | payer MEDICARE, OTHER ==
[~2019-07-03] VITALS: Ht 160 cm; Wt 68.0 kg
[~2019-07-03 17:55] MED LIST changes: +ERYT1OIN LEFTEYE
== END 2019-07-03 21:09 | disposition home or self-care (01) ==
LOC: ER 17:55
DX: M51.36 Other intervertebral disc degeneration, lumbar region (principal); E11.9 Type 2 diabetes mellitus without complications; I10 Essential (primary) hypertension; D64.9 Anemia, unspecified; Z91.048 Other nonmedicinal substance allergy status; Z88.6 Allergy status to analgesic agent; Z88.8 Allergy status to other drugs, medicaments and biological substances; Z87.891 Personal history of nicotine dependence
CPT/HCPCS: 72100; 99283-25

== ENCOUNTER 2019-07-11 19:01 | Emergency (ER) | payer MEDICARE, OTHER ==
[~2019-07-11] VITALS: Ht 157.5 cm; Wt 52.2 kg
[2019-07-11] MEDS ORDERED: ACETAMINOPHEN500 MG PO (19:23)
== END 2019-07-11 19:32 | disposition home or self-care (01) ==
LOC: ER 19:01
DX: G89.29 Other chronic pain (principal); M54.5 Low back pain; E11.9 Type 2 diabetes mellitus without complications; I10 Essential (primary) hypertension; K21.9 Gastro-esophageal reflux disease without esophagitis; D51.0 Vitamin B12 deficiency anemia due to intrinsic factor deficiency; Z87.891 Personal history of nicotine dependence; Z88.6 Allergy status to analgesic agent; Z88.8 Allergy status to other drugs, medicaments and biological substances; Z91.048 Other nonmedicinal substance allergy status
CPT/HCPCS: 99283

== ENCOUNTER 2019-12-19 17:35 | Emergency (ER) | payer MEDICARE, OTHER ==
[~2019-12-19] VITALS: Ht 165.1 cm; Wt 83.9 kg
[~2019-12-19 17:35] MED LIST changes: +ACETAMINOPHEN500 MG PO
[2019-12-19] MEDS ORDERED: Norco 5-325 Ta1 EACH PO (18:05)
[2019-12-19] MEDS ORDERED: BACITO TOP (18:05)
== END 2019-12-19 18:37 | disposition home or self-care (01) ==
LOC: ER 17:35
DX: T24.611A Corrosion of second degree of right thigh, initial encounter (principal); T32.0 Corrosions involving less than 10% of body surface; Z88.6 Allergy status to analgesic agent; Z88.8 Allergy status to other drugs, medicaments and biological substances; E11.9 Type 2 diabetes mellitus without complications; I10 Essential (primary) hypertension; D64.9 Anemia, unspecified; Z23 Encounter for immunization; T65.91XA Toxic effect of unspecified substance, accidental (unintentional), initial encounter
CPT/HCPCS: 16020; 90471; 90714; 99283-25; J7030

== ENCOUNTER 2020-03-11 16:03 | Emergency (ER) | payer MEDICARE, OTHER ==
[~2020-03-11] VITALS: Ht 160 cm; Wt 68.0 kg
[~2020-03-11 16:03] MED LIST changes: +BACITO TOP
== END 2020-03-11 17:10 | disposition left against medical advice (07) ==
LOC: ER 16:03
DX: M54.6 Pain in thoracic spine (principal); Z53.21 Procedure and treatment not carried out due to patient leaving prior to being seen by health care provider

== ENCOUNTER 2020-04-17 13:41 | Inpatient (IN) | payer MEDICARE, OTHER ==
[~2020-04-17] VITALS: Ht 162.6 cm; Wt 75.6 kg
[2020-04-17 14:01] LABS: Source, Urine Catheter
[2020-04-17 14:07] LABS: Appearance, Urine Cloudy (Clear); Blood, Urine 5+ (Neg); Color, Urine Amber (P-Yellow); Glucose Qualitative, Urine Neg (Neg); Ketones, Urine 4+ (Neg); Leukocyte Esterase, Urine 3+ (Neg); Nitrite, Urine Pos (Neg); Protein, Urine 3+ (Neg); Urobilinogen, Urine 2+ (Normal)
[2020-04-17 14:13] LABS: Bilirubin, Urine 1+ (Neg)
[2020-04-17 14:16] LABS: Amorphous Mod (0-Heavy); Bacteria Many /hpf; Squamous Epithelial Cells Not Seen /hpf (Few)
[2020-04-17 14:27] LABS: BASOPHILS ABSOLUTE AUTO 0.03 K/mm3 (0.00-0.23); BASOPHILS PERCENT AUTO 0 % (0-2); EOSINOPHILS PERCENT AUTO 0 % (0-6); Hematocrit 45.7 % (33.0-51.0); IMMATURE GRAN ABSOLUTE AUTO 0.13 K/mm3 (0.00-0.10); IMMATURE GRAN PERCENT AUTO 1 % (0-1); LYMPHOCYTES ABSOLUTE AUTO 1.29 K/mm3 (0.84-5.20); LYMPHOCYTES PERCENT AUTO 6 % (21-46); MONOCYTES ABSOLUTE AUTO 2.43 K/mm3 (0.16-1.47); MONOCYTES PERCENT AUTO 12 % (4-13); Mean Corpuscular HGB 28.9 pg (26.0-34.0); Mean Corpuscular HGB Conc 32.8 g/dL (31.5-36.5); Mean Corpuscular Volume 88 fL (80-100); Mean Platelet Volume 12.1 fL (9.1-12.4); NEUTROPHILS ABSOLUTE AUTO 16.14 K/mm3 (1.96-9.15); NEUTROPHILS PERCENT AUTO 81 % (41-73); Platelet Count 355 K/mm3 (150-400); RDW Coefficient Variation 12.5 % (11.7-14.2); RDW Standard Deviation 40.5 fL (35.1-46.3); Red Blood Cell Count 5.19 M/mm3 (3.80-5.20); White Blood Cell Count 20.02 K/mm3 (4.00-11.30)
[2020-04-17 15:28] LABS: Alanine Aminotransfer (ALT/SGP 152 U/L (12-78); Albumin, Blood 3.9 g/dL (3.4-5.0); Albumin/Globulin Ratio 0.9 (0.8-1.8); Alk Phos 106 U/L (50-136); Anion Gap 9 mmol/L (6-16); Aspartate Aminotrans (AST/SGOT 311 U/L (12-37); Bilirubin, Total 2.3 mg/dL (0.1-1.0); Blood Urea Nitrogen 36 mg/dL (8-24); Bun/Creatinine Ratio 66.4 (12.0-20.0); CO2, Blood 25 mmol/L (21-32); Calcium, Blood 9.3 mg/dL (8.5-10.1); Chloride, Blood 106 mmol/L (98-108); Creatinine, Blood 0.54 mg/dL (0.40-1.00); Globulin, Blood 4.5 g/dL (2.2-4.0); Glomerular Filtration Rate >60 (60-); Glucose, Blood 170 mg/dL (70-99); Sodium, Blood 140 mmol/L (136-145); Total Protein, Blood 8.4 g/dL (6.4-8.2); Troponin I <0.015 ng/mL (0.000-0.040)
[2020-04-17 15:29] LABS: CPK Creatine Kinase 7663 U/L (26-193)
[2020-04-17 15:43] LABS: Creatine Kinase MB 262.6 ng/mL (0.0-3.6); Creatine Kinase MB Index 3.4 (0.0-4.0)
[2020-04-17 17:33] LABS: Influenza A, PCR Negative (NEGATIVE); Influenza B, PCR Negative (NEGATIVE); Resp Syncytial Virus, PCR Negative (NEGATIVE); SARS-Cov-2 (COVID-19) PCR, MMC Negative (NEGATIVE)
--- NOTE | 2020-04-18 05:13 | NUR ---
CORPORATE LEGAL ASSISTANT SUMMARY Patient arrived to room 329 alert to self and able to follow directions with frequent guidance. Pleasant and cooperative with care, incontinent of urine and stool overnight. Urine is quite foul smelling. Photos taken of wounds on right gluteus, right medial maleolus and mid back. Son Rogelio who is a casino runner here in town is her only contact his number is as follows: [phone]. Patient is far to weak and confused to be able to live independently and care for herself
[2020-04-18 05:17] LABS: BASOPHILS ABSOLUTE AUTO 0.02 K/mm3 (0.00-0.23); BASOPHILS PERCENT AUTO 0 % (0-2); EOSINOPHILS PERCENT AUTO 0 % (0-6); Hematocrit 39.2 % (33.0-51.0); Hemoglobin 12.6 g/dL (11.5-16.0); IMMATURE GRAN ABSOLUTE AUTO 0.11 K/mm3 (0.00-0.10); IMMATURE GRAN PERCENT AUTO 1 % (0-1); LYMPHOCYTES ABSOLUTE AUTO 1.34 K/mm3 (0.84-5.20); LYMPHOCYTES PERCENT AUTO 11 % (21-46); MONOCYTES ABSOLUTE AUTO 2.26 K/mm3 (0.16-1.47); MONOCYTES PERCENT AUTO 18 % (4-13); Mean Corpuscular HGB Conc 32.1 g/dL (31.5-36.5); Mean Corpuscular Volume 90 fL (80-100); Mean Platelet Volume 11.8 fL (9.1-12.4); NEUTROPHILS ABSOLUTE AUTO 9.02 K/mm3 (1.96-9.15); NEUTROPHILS PERCENT AUTO 71 % (41-73); Platelet Count 253 K/mm3 (150-400); RDW Coefficient Variation 12.9 % (11.7-14.2); RDW Standard Deviation 42.5 fL (35.1-46.3); Red Blood Cell Count 4.35 M/mm3 (3.80-5.20); White Blood Cell Count 12.75 K/mm3 (4.00-11.30)
--- NOTE | 2020-04-18 05:48 | NUR ---
patient had temp elevation of 100.7 around 0300, which was treated with tylenol and turning down the thermostat. Temp dropped to 99.3 after one hour.
[2020-04-18 06:08] LABS: Creatine Kinase MB 116.3 ng/mL (0.0-3.6); Magnesium, Blood 2.3 mg/dL (1.6-2.4)
[2020-04-18 06:12] LABS: Alanine Aminotransfer (ALT/SGP 150 U/L (12-78); Albumin, Blood 2.9 g/dL (3.4-5.0); Albumin/Globulin Ratio 0.8 (0.8-1.8); Alk Phos 79 U/L (50-136); Anion Gap 10 mmol/L (6-16); Aspartate Aminotrans (AST/SGOT 287 U/L (12-37); Blood Urea Nitrogen 28 mg/dL (8-24); Bun/Creatinine Ratio 46.2 (12.0-20.0); CO2, Blood 23 mmol/L (21-32); CPK Creatine Kinase 5729 U/L (26-193); Chloride, Blood 113 mmol/L (98-108); Creatinine, Blood 0.61 mg/dL (0.40-1.00); Globulin, Blood 3.5 g/dL (2.2-4.0); Glomerular Filtration Rate >60 (60-); Glucose, Blood 149 mg/dL (70-99); Sodium, Blood 146 mmol/L (136-145); Total Protein, Blood 6.4 g/dL (6.4-8.2)
--- NOTE | 2020-04-18 17:43 | NUR ---
SHIFT SUMMARY PT ALERT, BUT CONFUSED. PT USES WALKER AND BSC WITH 1-2P ASSISTS. PT THIS AM C/O BURNING WHEN URINATING; RECEIVED AN ORDER OF PYRIDIUM. PT ALSO C/O PAIN R FOOT; WILL HAVE AN XRAY TODAY; AND MEDICATED PER EMAR. MULTIPLE ULCERS LOCATED IN MID BACK, R ANKLE, AND BUTTOCKS AREA/NAIMA. CREAM APPLIED ON BUTTOCKS AREA AND LAW FIRM ADMINISTRATOR. BED IS IN THE LOWEST POSITION AND CALL LIGHTS WITHIN REACH.
--- NOTE | 2020-04-19 04:11 | NUR ---
BIKE TECHNICIAN SUMMARY PT A&OX3, ABLE TO MAKE NEEDS KNOWN, CONFUSED AT TIMES. EASILY REDIRECTABLE. NO C/O CP, SOB, N&V, OR DYSURIA THIS SHIFT. PT MEDICATED FOR PAIN PER EMAR. ON TELE SR 70s. PT 1-2P ASSIST WITH FWW TO BSC. CALM AND RESTED IN BED T/O SHIFT, COOPERATIVE TO CARE, CALLS APPROPRIATELY. BED AT LOWEST POSITION, CALL LIGHT WITHIN REACH.
[2020-04-19 04:36] LABS: BASOPHILS ABSOLUTE AUTO 0.02 K/mm3 (0.00-0.23); BASOPHILS PERCENT AUTO 0 % (0-2); EOSINOPHILS ABSOLUTE AUTO 0.04 K/mm3 (0.00-0.68); EOSINOPHILS PERCENT AUTO 0 % (0-6); Hematocrit 36.9 % (33.0-51.0); IMMATURE GRAN ABSOLUTE AUTO 0.19 K/mm3 (0.00-0.10); IMMATURE GRAN PERCENT AUTO 2 % (0-1); LYMPHOCYTES ABSOLUTE AUTO 2.27 K/mm3 (0.84-5.20); LYMPHOCYTES PERCENT AUTO 20 % (21-46); MONOCYTES ABSOLUTE AUTO 1.41 K/mm3 (0.16-1.47); MONOCYTES PERCENT AUTO 13 % (4-13); Mean Corpuscular HGB 29.1 pg (26.0-34.0); Mean Corpuscular HGB Conc 32.5 g/dL (31.5-36.5); Mean Corpuscular Volume 90 fL (80-100); NEUTROPHILS ABSOLUTE AUTO 7.23 K/mm3 (1.96-9.15); NEUTROPHILS PERCENT AUTO 65 % (41-73); Platelet Count 245 K/mm3 (150-400); RDW Standard Deviation 42.5 fL (35.1-46.3); Red Blood Cell Count 4.12 M/mm3 (3.80-5.20); White Blood Cell Count 11.16 K/mm3 (4.00-11.30)
[2020-04-19 05:02] LABS: Alanine Aminotransfer (ALT/SGP 162 U/L (12-78); Albumin, Blood 2.9 g/dL (3.4-5.0); Albumin/Globulin Ratio 0.8 (0.8-1.8); Alk Phos 79 U/L (50-136); Anion Gap 7 mmol/L (6-16); Aspartate Aminotrans (AST/SGOT 233 U/L (12-37); Bilirubin, Total 0.5 mg/dL (0.1-1.0); Blood Urea Nitrogen 18 mg/dL (8-24); CO2, Blood 25 mmol/L (21-32); Calcium, Blood 8.7 mg/dL (8.5-10.1); Chloride, Blood 109 mmol/L (98-108); Creatinine, Blood 0.46 mg/dL (0.40-1.00); Globulin, Blood 3.7 g/dL (2.2-4.0); Glomerular Filtration Rate >60 (60-); Glucose, Blood 148 mg/dL (70-99); Sodium, Blood 141 mmol/L (136-145); Total Protein, Blood 6.6 g/dL (6.4-8.2)
[2020-04-19 09:06] LABS: Creatine Kinase MB Index 0.7 (0.0-4.0)
--- NOTE | 2020-04-19 17:48 | NUR ---
SHIFT SUMMARY PT AxOx3-4. INTERMITTENT CONFUSION. PLEASANT AND COOPERATIVE WITH CARE. ANXIOUS SPELL THIS AM WHEN DISCUSSING DC PLANS WITH THERAPY IS RECOMMENDING SNF PT IS UNABLE TO AMBULATE WELL/CARE FOR HERSELF. PT STATING SHE WON'T GO TO SNF, BUT DOESN'T HAVE ANYWHERE ELSE TO GO. CASE MANAGEMENT WAS CALLED. WAS ABLE TO GET PT'S SON, PEARL INVOLVED WITH CARE. PT NOW AGREEABLE TO SNF. PLACEMENT PENDING. PER SUPERVISOR GLYCERIN, NSR 80'S. TELE DC'D. WORKED WITH PHYSICAL THERAPY TODAY. BED BATH GIVEN. FOAM APPLIED TO BACK BRUISE/REDDENED AREA TO PREVENT FURTHER BREAKDOWN. FREDDY FOAM TO HEALS FOR PROTECTION. BOTTOM RED, BARRIER CREAM APPLIED. GOOD APPETITE. ST EVAL ORDERED TO ASSESS SWALLOWING D/T PT HAVING DIFFICULTY SWALLOWING MEDICATIONS THIS AM. TOOK MEDS WHOLE IN APPLESAUCE WITH SUCCESS. PT CURRENTLY RESTING IN BED WITH CALL LIGHT IN REACH. DOES CALL OUT FOR HELP, BUT NOT IMPULSIVE WITH GETTING OUT OF BED. BED ALARM ON. VITALS REVIEWED. PT DENIES ANY NEEDS AT THIS TIME.
--- NOTE | 2020-04-19 21:30 | NUR ---
PT MADE MULTIPLE ATTEMPTS OF SELF TRANSFERRING, PT UNCOOPERATIVE, NOTABLY UNSTEADY ON HER FEET. NOTIFIED CHARGE NURSE OF ATTEMPTS TO GET OUT OF BED AND RECOMMENDED TO MOVE TO A ROOM WITH MORE OBSERVATIONAL RESOURCES.
--- NOTE | 2020-04-19 22:45 | NUR ---
REPORT RECEIVED FROM ALTON FAIR. PT TRANSFERRED TO 351 FROM [facility]. PT SHOUTING AT STAFF, SWINGING FISTS AND ATTEMPTING TO HIT STAFF, USING COLORFUL LANGUAGE. CONTINUING TO EXIT BED. NO OTHER SIGNS OF ACUTE DISTRESS NOTED. BED IN LOW POSTION, SAFETY ALARMS ON, SIDERAILS UP. VERIFIED REMOTE MONITORING. WILL CALL PROVIDER FOR ORDERS.
--- NOTE | 2020-04-19 23:00 | NUR ---
SPOKE TO DR. TESFAYE REGARDING PT'S CONTINUED AGITATION. ORDERS RECEIVED.
[2020-04-20 04:58] LABS: BASOPHILS ABSOLUTE AUTO 0.04 K/mm3 (0.00-0.23); BASOPHILS PERCENT AUTO 0 % (0-2); EOSINOPHILS ABSOLUTE AUTO 0.11 K/mm3 (0.00-0.68); EOSINOPHILS PERCENT AUTO 1 % (0-6); Hematocrit 33.8 % (33.0-51.0); Hemoglobin 10.9 g/dL (11.5-16.0); IMMATURE GRAN ABSOLUTE AUTO 0.27 K/mm3 (0.00-0.10); IMMATURE GRAN PERCENT AUTO 3 % (0-1); LYMPHOCYTES ABSOLUTE AUTO 2.31 K/mm3 (0.84-5.20); LYMPHOCYTES PERCENT AUTO 24 % (21-46); MONOCYTES ABSOLUTE AUTO 1.05 K/mm3 (0.16-1.47); MONOCYTES PERCENT AUTO 11 % (4-13); Mean Corpuscular HGB 28.8 pg (26.0-34.0); Mean Corpuscular HGB Conc 32.2 g/dL (31.5-36.5); Mean Corpuscular Volume 89 fL (80-100); NEUTROPHILS ABSOLUTE AUTO 5.98 K/mm3 (1.96-9.15); NEUTROPHILS PERCENT AUTO 61 % (41-73); Platelet Count 223 K/mm3 (150-400); RDW Coefficient Variation 12.8 % (11.7-14.2); RDW Standard Deviation 41.7 fL (35.1-46.3); Red Blood Cell Count 3.78 M/mm3 (3.80-5.20); White Blood Cell Count 9.76 K/mm3 (4.00-11.30)
[2020-04-20 05:42] LABS: Alanine Aminotransfer (ALT/SGP 130 U/L (12-78); Albumin, Blood 2.4 g/dL (3.4-5.0); Albumin/Globulin Ratio 0.7 (0.8-1.8); Alk Phos 61 U/L (50-136); Anion Gap 6 mmol/L (6-16); Aspartate Aminotrans (AST/SGOT 130 U/L (12-37); Bilirubin, Total 0.3 mg/dL (0.1-1.0); Blood Urea Nitrogen 13 mg/dL (8-24); CO2, Blood 27 mmol/L (21-32); Calcium, Blood 8.2 mg/dL (8.5-10.1); Chloride, Blood 109 mmol/L (98-108); Creatine Kinase MB 12.5 ng/mL (0.0-3.6); Creatinine, Blood 0.43 mg/dL (0.40-1.00); Globulin, Blood 3.4 g/dL (2.2-4.0); Glomerular Filtration Rate >60 (60-); Glucose, Blood 145 mg/dL (70-99); Potassium, Blood 2.9 mmol/L (3.5-5.5); Sodium, Blood 142 mmol/L (136-145); Total Protein, Blood 5.8 g/dL (6.4-8.2)
[2020-04-20 05:45] LABS: CPK Creatine Kinase 1847 U/L (26-193); Creatine Kinase MB Index 0.7 (0.0-4.0)
--- NOTE | 2020-04-20 06:39 | NUR ---
SHIFT SUMMARY PT ASLEEP, NO S/S ACUTE DISTRESS NOTED. WAS MONITORED EVERY 1-2 HOURS WITH NEEDS MET. VS REVIEWED, WNL. SLEPT ON AND OFF, NO FURTHER EPISODES OF AGITATION NOTED. PT DENIES PAIN OR NEEDS AT THIS TIME. CALL LIGHT, POSSESSIONS IN REACH, BED IN LOW POSITION WITH ALARMS ON. WCTM, REPORT OFF TO DAY RN.
--- NOTE | 2020-04-20 10:23 | NUR ---
SPOKE WITH DR. WALKER IN PERSON. PATIENT IS TO HAVE 60MeQ OF ORAL POTASSIUM THIS AM. WHICH EQUATES TO HER NORMAL 40MEQ AND A ONE TIME DOSE OF 20 MEQ EXTRA.
--- NOTE | 2020-04-20 18:27 | NUR ---
SHIFT SUMMARY PATIENT IS PLEASANT, ALERT TO SELF. SHE HAS BEEN VERY RUDE AT TIMES. CURRENTLY THE PATIENT IS MOVING AROUND IN THE BED. SHE IS NO LONGER IN RESTRAINTS. SHE HAS LEFT HER IV ALONE AT THIS TIME AND AWAITING ANY CHANGES. SHE STATES THAT WE NEED TO GET HER HOME SOON POSSIBLE.
--- NOTE | 2020-04-20 19:16 | NUR ---
ASSUMED CARE RECEIVED REPORT FROM ALTON BALL. ASSUMED CARE OF PT. PT ATTEMPTING TO ROLL OOB, PT STATING SHE WANTS TO LAY ON HER SIDE. ASSISTED PT TO POSITION OF COMFORT. SIDERAILS UP, CALL LIGHT AND POSSESSIONS IN REACH, BED ALARM ON. WCTM.
--- NOTE | 2020-04-20 20:46 | NUR ---
PT INCREASINGLY AGGRESSIVE TOWARDS STAFF, USING COLORFUL LANGUAGE AND HITTING THIS RN AND SECOND WATCH SERGEANT. MULTIPLE ATTEMPTS TO EXIT THE BED. THIS RN SPOKE TO DR. TESFAYE REGARDING PT'S BEHAVIOR, ORDERS RECEIVED. CONTINUE TO MONITOR.
--- NOTE | 2020-04-21 04:42 | NUR ---
SHIFT SUMMARY PT ASLEEP, NO S/S ACUTE DISTRESS NOTED. WAS MONITORED EVERY 1-2 HOURS WITH NEEDS MET. VS REVIEWED, WNL. RESPS E/U. COOPERATIVE WITH CARES AT THIS TIME. PT STILL VERY RUDE TO STAFF AT TIMES, CURSING AND USING COLORFUL LANGUAGE. A&O TO SELF, SOMEWHAT RE-DIRECTABLE. DENIES NEEDS AT THIS TIME. CALL LIGHT, POSSESSIONS IN REACH, BED IN LOW POSITION WITH ALARMS ON. WCTM, REPORT OFF TO ONCOMING RN.
[2020-04-21 05:19] LABS: BASOPHILS ABSOLUTE AUTO 0.04 K/mm3 (0.00-0.23); BASOPHILS PERCENT AUTO 0 % (0-2); EOSINOPHILS ABSOLUTE AUTO 0.21 K/mm3 (0.00-0.68); EOSINOPHILS PERCENT AUTO 2 % (0-6); Hematocrit 37.8 % (33.0-51.0); Hemoglobin 12.2 g/dL (11.5-16.0); IMMATURE GRAN ABSOLUTE AUTO 0.38 K/mm3 (0.00-0.10); IMMATURE GRAN PERCENT AUTO 4 % (0-1); LYMPHOCYTES ABSOLUTE AUTO 2.13 K/mm3 (0.84-5.20); LYMPHOCYTES PERCENT AUTO 20 % (21-46); MONOCYTES ABSOLUTE AUTO 1.34 K/mm3 (0.16-1.47); MONOCYTES PERCENT AUTO 13 % (4-13); Mean Corpuscular HGB 28.6 pg (26.0-34.0); Mean Corpuscular HGB Conc 32.3 g/dL (31.5-36.5); Mean Corpuscular Volume 89 fL (80-100); Mean Platelet Volume 11.6 fL (9.1-12.4); NEUTROPHILS ABSOLUTE AUTO 6.54 K/mm3 (1.96-9.15); NEUTROPHILS PERCENT AUTO 61 % (41-73); Platelet Count 269 K/mm3 (150-400); RDW Coefficient Variation 12.5 % (11.7-14.2); RDW Standard Deviation 40.6 fL (35.1-46.3); Red Blood Cell Count 4.26 M/mm3 (3.80-5.20); White Blood Cell Count 10.64 K/mm3 (4.00-11.30)
[2020-04-21 05:49] LABS: Anion Gap 6 mmol/L (6-16); Blood Urea Nitrogen 10 mg/dL (8-24); Bun/Creatinine Ratio 24.8 (12.0-20.0); CO2, Blood 28 mmol/L (21-32); Calcium, Blood 8.5 mg/dL (8.5-10.1); Chloride, Blood 105 mmol/L (98-108); Creatine Kinase MB 8.7 ng/mL (0.0-3.6); Glomerular Filtration Rate >60 (60-); Glucose, Blood 141 mg/dL (70-99); Potassium, Blood 3.2 mmol/L (3.5-5.5); Sodium, Blood 139 mmol/L (136-145)
[2020-04-21 05:50] LABS: CPK Creatine Kinase 1036 U/L (26-193); Creatine Kinase MB Index 0.8 (0.0-4.0)
--- NOTE | 2020-04-21 18:36 | NUR ---
SHIFT SUMMARY PT HAS BEEN SLEEPING A LOT OF THE SHIFT. PT HASN'T HAD MUCH OF AN APPETITE THIS SHIFT. THIS RN HAS ENCOURAGED PT TO EAT/DRINK MORE. PT HAS BEEN COOPERATIVE WITH CARE. DRESSINGS PLACED TO BILATERAL HEELS AND BACK THIS AFTERNOON. PT CONTINUES TO HAVE REDNESS/PEELING TO BUTTOCKS. NO ACUTE CHANGES THIS SHIFT. CALL LIGHT IN REACH. WILL CONTINUE TO MONITOR AND REPORT TO ONCOMING RN.
--- NOTE | 2020-04-22 01:44 | NUR ---
PT HAS BECOME INCREASINGLY MORE CONFUSED, AGGITATED AND COMBATIVE. SHE IS PARANOID AND IS SAYING "EVERYONE IS TRYING TO KILL ME". PT MAKING CONTINUOUS ATTEMPTS TO GET OOB BY SELF, SETTING OFF ALARM AND CAMERA MONITORS CALLING TO ALERT STAFF OF IMPULSIVE BEHAVIOR. MADE AWARE W/HALDOL 3MG IV Q6P RX'D. WILL ADMINISTER WHEN AVAILABLE FROM PHARMACY. PT HAS B52 PRN RX'D ALREADY BUT BEHAVIOR DOESN'T SEEM TO WARRANT THIS LEVEL OF INTERVENTION. WILL PROVIDE HALDOL AND ASSESS FURTHER NEEDS.
--- NOTE | 2020-04-22 02:08 | NUR ---
PT HAS ALLERGY TO PROCAINE SO PHARMACIST ALERTED STAFF THAT HALDOL IS CONTRAINDICATED D/T REACTION BEING UNKNOWN. ZYPREXA 10MG IM X1 RX'D NOW. WILL ADMINISTER MED WHEN AVAILABLE.
[2020-04-22 06:16] LABS: BASOPHILS ABSOLUTE AUTO 0.04 K/mm3 (0.00-0.23); BASOPHILS PERCENT AUTO 0 % (0-2); EOSINOPHILS ABSOLUTE AUTO 0.17 K/mm3 (0.00-0.68); EOSINOPHILS PERCENT AUTO 2 % (0-6); Hematocrit 40.2 % (33.0-51.0); IMMATURE GRAN PERCENT AUTO 3 % (0-1); LYMPHOCYTES ABSOLUTE AUTO 2.19 K/mm3 (0.84-5.20); LYMPHOCYTES PERCENT AUTO 21 % (21-46); MONOCYTES ABSOLUTE AUTO 1.34 K/mm3 (0.16-1.47); MONOCYTES PERCENT AUTO 13 % (4-13); Mean Corpuscular HGB 28.8 pg (26.0-34.0); Mean Corpuscular HGB Conc 32.3 g/dL (31.5-36.5); Mean Corpuscular Volume 89 fL (80-100); Mean Platelet Volume 11.7 fL (9.1-12.4); NEUTROPHILS ABSOLUTE AUTO 6.46 K/mm3 (1.96-9.15); NEUTROPHILS PERCENT AUTO 61 % (41-73); Platelet Count 290 K/mm3 (150-400); RDW Coefficient Variation 12.5 % (11.7-14.2); RDW Standard Deviation 40.9 fL (35.1-46.3); Red Blood Cell Count 4.51 M/mm3 (3.80-5.20)
--- NOTE | 2020-04-22 06:41 | NUR ---
SUMMARY: PT BEGAN SHIFT A/OX2-3 AND PLEASANT/COOPERATIVE W/CARE BUT BECAME MORE CONFUSED, AGGITATED, NONCOMPLIANT, COMBATIVE AND IMPULSIVE SHIFT PROGRESSED. ZYPREXA 10MG IM X1 RX'D AND RECIEVED FOR TEMPORARY EFFECT AT CALMING PT. WE WERE ABLE TO KEEP HER OUT OF RESTRAINTS BUT SPENT MUCH TIME IN HER ROOM, ATTEMPTING TO REDIRECT AND REORIENT HER W/MINIMAL SUCCESS. SHE WAS VERY FIGITY MOST OF NOCTE, REPOSITIONING HERSELF CONSTANTLY IN BED AND OFTEN THROWING LEGS OVER RAILS. BED ALARM ON AND CAMERA MONITORING IN PLACE. SHE USED BSC WHEN COMPLIANT AND ATTENDS WERE CHANGED PRN FOR URGE INCONTINENCE. PILLS TOLERATED CRUSHED IN APPLESAUCE AND PO INTAKE ENCOURAGED FOR POOR APPETITE. MEPILEXES REMAIN INTACT TO HEALS AND MIDBACK. BARRIER CREAM APPLIED TO EXCORIATED BOTTOM T/O NOCTE. NO ACUTE CHANGES, VSS/AFEBRILE.
[2020-04-22 06:43] LABS: Anion Gap 8 mmol/L (6-16); Blood Urea Nitrogen 10 mg/dL (8-24); Bun/Creatinine Ratio 22.6 (12.0-20.0); CO2, Blood 27 mmol/L (21-32); CPK Creatine Kinase 679 U/L (26-193); Calcium, Blood 9.1 mg/dL (8.5-10.1); Chloride, Blood 104 mmol/L (98-108); Creatinine, Blood 0.44 mg/dL (0.40-1.00); Glomerular Filtration Rate >60 (60-); Glucose, Blood 140 mg/dL (70-99); Potassium, Blood 3.5 mmol/L (3.5-5.5); Sodium, Blood 139 mmol/L (136-145)
[2020-04-22 07:02] LABS: Creatine Kinase MB 7.2 ng/mL (0.0-3.6); Creatine Kinase MB Index 1.1 (0.0-4.0)
--- NOTE | 2020-04-22 13:08 | NUR ---
HOME MEDS THIS RN CALLED PT'S PCP AND PHARMACY. PER PHARMACY, PT HAS NOT HAD ANYTHING FILLED SINCE DECEMBER AND PER PCP OFFICE, PT HAS NOT BEEN IN TO OFFICE SINCE JUN WITH NO MEDICATIONS. THIS RN DISCUSSED THIS WITH DR. SHELL.
--- NOTE | 2020-04-22 17:49 | NUR ---
SHIFT SUMMARY PT HAS BEEN SLEEPING A LOT OF THE SHIFT. PT UP TO CHAIR THIS AFTERNOON AND ATE LUNCH. PT HAD MORE OF AN APPETITE AT LUNCH. PT CONTINUES TO BE CONFUSED BUT COOPERATIVE WITH CARE. IVF INFUSING WITHOUT DIFFICULTY. NO ACUTE CHANGES AT THIS TIME. CALL LIGHT IN REACH. WILL REPORT TO ONCOMING RN.
--- NOTE | 2020-04-22 22:10 | NUR ---
TYLENOL RECIEVED PRN AT 2111 FOR TOLERABLE CONTROL OF BACK PAIN. NO FUTHER S/S PAIN OR DISTRESS. WCTM.
[2020-04-23 05:00] LABS: Alanine Aminotransfer (ALT/SGP 77 U/L (12-78); Albumin, Blood 2.5 g/dL (3.4-5.0); Albumin/Globulin Ratio 0.7 (0.8-1.8); Alk Phos 60 U/L (50-136); Anion Gap 4 mmol/L (6-16); Aspartate Aminotrans (AST/SGOT 34 U/L (12-37); Bilirubin, Total 0.3 mg/dL (0.1-1.0); Blood Urea Nitrogen 18 mg/dL (8-24); CO2, Blood 29 mmol/L (21-32); CPK Creatine Kinase 237 U/L (26-193); Calcium, Blood 8.6 mg/dL (8.5-10.1); Chloride, Blood 109 mmol/L (98-108); Globulin, Blood 3.4 g/dL (2.2-4.0); Glomerular Filtration Rate >60 (60-); Glucose, Blood 140 mg/dL (70-99); Potassium, Blood 3.6 mmol/L (3.5-5.5); Sodium, Blood 142 mmol/L (136-145); Total Protein, Blood 5.9 g/dL (6.4-8.2)
--- NOTE | 2020-04-23 05:25 | NUR ---
SUMMARY: PT REMAINS CONFUSED EXCEPT TO SELF AND CAN BECOME IRRITABLE AND AGGITATED AT TIMES. SHE WAS RESISTANT TO TAKE HS MEDS BUT TOLERATED THEM CRUSHED IN APPLESAUCE AFTER ENCOURAGEMENT. 1ST DOSE SCHEDULED SEROQUEL WAS RECIEVED AND IT DID SEEM EFFECTIVE AT CALMING PT AND PROMOTING SLEEP/REST. SHE SLEPT MAJORITY OF NOCTE, AWAKING BRIEFLY FOR ADL'S. SHE SEEMS TO BE MORE RECEPTIVE TO FEMALE STAFF AND WOULD BECOME MOSTLY AGGITATED AND BERATING TOWARD MALE STAFF ATTEMPTING TO PROVIDE NAIMA CARE AND REPOSITIONING. ATTENDS CHANGES WERE PROVIDED PRN FOR URINARY INCONTINENCE AND TURN SCHEDULE MAINTAINED. BARRIER CREAM APPLIED TO EXCORIATED BUTTOCKS AND DX'S TO MIDBACK AND HEELS ARE C/D/I. IVF INFUSING AND CAN BE SL AFTER THIS BAG. NO ACUTE CHANGES, VSS/AFEBRILE. WCTM AND REPORT TO DAY RN.
--- NOTE | 2020-04-23 15:54 | NUR ---
Case Conference Note Reviewed chart and attempted to see Pt. PT currently working with Pt. Spoke with Mirlande from Pt who reports recommendations are SNF. Mirlande reports Pt is very forgetful and requires reminders. Pt may require 24 hour caregiving support or memory care. Spoke with Dr Mcneal and discussed case. Attempted to contact Pt's son Jorge. Left message with request for a return phone call. Plan: Advanced Care Planning and discussion regarding completing POLST with family. Palliative Care will remain available.
--- NOTE | 2020-04-23 16:10 | NUR ---
PATIENT STARTED OUT THIS SHIFT VERY IMPULSIVE AND CONFUSED. SHE WOULD JUMP OUT OF BED OR THE BEDSIDE CHAIR SAYING SHE NEEDED TO USE THE BATHROOM AND WE WOULD ASSIST PATIENT TO THE BSC AND SHE WOULD IMMEDIATELY TRY JUMPING OUT OF THAT. WHEN ASKED WHAT SHE WAS DOING SHE WOULD STATE THAT SHE NEEDED TO USE THE BATHROOM. IT WAS EXPLAINED TO THE PATIENT REPEATEDLY THAT SHE WAS ON THE BEDSIDE COMMODE HOWEVER SHE WOULD IMMEDIATELY FORGET. SHE WAS A 2+ PERSON MAX ASSIST FOR TRANSFERS, PRETTY MUCH WEIGHT. PATIENT HAS WORKED WITH THERAPY TODAY. VITALS HAVE BEEN STABLE. PATIENT CONTINUES ON IV ABX WITHOUT S/SX OF ADVERSE REACTIONS NOTED OR REPORTED. WILL CONTINUE TO MONITOR AND PROVIDE CARE NEEDED.
--- NOTE | 2020-04-23 16:52 | NUR ---
Son Jorge returns phone call. Provided update and discussed recommendations. Engaged in therapeutic discussion regarding advanced care planning. Educated on disease process of dementia including trajectory of disease. Discussed the importance of planning for the future as disease process takes its coarse. Discussed the need for family to consider fci placement or memory care. Educated on life sustaining treatments including risk factors and implications. Discussed considering completing a POLST. Jorge reports he and his are the only family Pt has left. Jorge states he will consider completing a POLST when Pt is D/C. Jorge requests an update from hospitalist. He expresses appreciation of call and reports no other concerns at this time. Palliative Care will remain available.
--- NOTE | 2020-04-24 04:16 | NUR ---
RELINER SUMMARY PT REFUSED 2100 MEDICATIONS AND WAS VERY AGITATED DURING THE SHIFT. PT PULLED HER IV OUT AND STATED THAT SHE WAS GOING TO LEAVE, THE PT WAS REDIRECTED AND CALMED DOWN. PT TRIED TO CLIMB OUT OF BED SEVERAL TIMES DURING THE NIGHT. THE PT WAS GIVEN 1MG OF ATIVAN FOR AGITATION WHICH SHE TOLERATED WELL AND WAS ABLE TO REST FOR A FEW HOURS.PT CONTINUES TO BE INCONTINENT AND REQUIRE 2 PERSON MAX TRANSFER. PT IS SLEEPING COMFORTABLY IN BED W CALL LIGHT WITHIN REACH. TM.
--- NOTE | 2020-04-24 17:09 | NUR ---
PT HAS BEEN ALERT THIS AM AND UP FOR HER MEALS. PT WAS ABLE TO USE THE COMMODE THIS AM AND THEN LATER IN THE DAY PT WAS INCONTINENT OF HER BOWELS IN BED. PT SLEEP A LOT AFTER HAVING HER MORNING DOSE OF SEROQUEL. PT HAS BEEN WAKING UP MORE AND IS NOW WATCHING TV WAITING FOR DINNER. CALL ALARM IS IN REACH WILL CONTINUE TO MONITOR.
--- NOTE | 2020-04-24 18:17 | NUR ---
PT HAD MULTIPLE RUNNY STOOLS AND DR SHELL NOTIFIED. DR SHELL ORDERED ANTIBOTICS DC'D AND PT TO BE MONITORED FOR THE NEXT COUPLE DAYS TO SEE IF STOOLS IMPROVE.
--- NOTE | 2020-04-24 20:12 | NUR ---
1950 PT STOOD AND PIVOTED FROM CHAIR TO BSC AND BACK TO BED X 2 ASSIST; PT SHUFFLES FEET VERY SLOWLY AND NEEDS LOTS OF CUES FOR MOVEMENT; DENIES PAIN OR NAUSEA.
--- NOTE | 2020-04-25 03:40 | NUR ---
SHIFT SUMMARY: 84 Y/O FEMALE RESTED COMFORTABLY ALL SHIFT AFTER INITIALLY GETTING AGITATED AND RECEIVING ATIVAN 1MG IVP X 1 WITH PT THEN ABLE TO SLEEP COMFORTABLY; DENIES PAIN OR NAUSEA; PT HAS +2 PITTING EDEMA BILATERAL LOWER EXTREMITIES NOTED; DENIES PAIN OR NAUSEA; BED ALARM APPLIED, BED LOW POSITION WITH CALL LIGHT AT SIDE.
--- NOTE | 2020-04-25 17:32 | NUR ---
PATIENT IS ALERT AND ORIENTED TO SELF, FOLLOWING DIRECTIONS. SHE CALLS APPROPRIATELY TO USE THE BSC. FORMED STOOL TODAY. PATIENT HAS A GOOD APPETITE. PICTURES OF WOUNDS WERE TAKEN TODAY. WOUNDS CLEANED AND DRESSING APPLIED. PATIENT WORKED WITH PT TODAY. SHE HAS SPENT MOST OF THE DAY UP IN THE RECLINER. PATIENT IS TALKATIVE AND HAS A GREAT SENSE OF HUMOR TODAY. WILL CONTINUE TO MONITOR.
--- NOTE | 2020-04-26 05:51 | NUR ---
SHIFT SUMMARY PT IS AN 84 Y/O FEMALE, ADMITTED FOR SEPSIS R/T UTI. SHE IS A&O X SELF ONLY, WITH SOME POSSIBLE VISUAL HALLUCINATIONS AND VERY ANXIOUS. NO C/O ACUTE PAIN, NAUSEA OR SOB. VITAL SIGNS STABLE. PT SLEPT FOR SHORT AMOUNTS OF TIME THROUGHOUT THE NIGHT. NO ACUTE CHANGES IN PT CONDITION NOTED DURING THE NIGHT. WILL CONTINUE TO MONITOR AND TREAT PER EMAR UNTIL HAND OFF TO DAY SHIFT RN.
--- NOTE | 2020-04-26 16:52 | NUR ---
SHIFT SUMMARY- PT IS ALERT, PLESANT AND COOPERATIVE. SHE HAS BEEN CONFUSED THIS SHIFT. SHE WAS CONVINCED THAT SHE NEEDED TO LEAVE BECAUSE THERE WAS A TORNADO COMING, A FEW MINUTES LATER SHE SAID THAT HER HAD CALLED AND THERE WAS NO NEED TO WORRY. SHE IS EATING AND DRINKING WELL. SHE HAS BEEN UP TO THE RESTROOM. SHE HAS BEEN IN THE CHAIR FOR MEALS. SHE IS IMPULSIVE AND HAS TRIED TO GET OUT OF BED WITHOUT CALLING SEVERAL TIMES THIS SHIFT.
--- NOTE | 2020-04-27 04:40 | NUR ---
SHIFT SUMMARY PT AWAKE FOR A GOOD PORITON OF THE SHIFT ANXIOUS AND ATTEMPTING TO GET OOB. PT WAS FIXATED ON TRYING TO LOCATE "[employer]" FOR HOURS INTO THE SHIFT, DESPITE ME REMINDING HER THAT SHE WAS IN THE HOSPITAL. PT IS VERY DIFFICULT TO REDIRECT. PT SETTLES WHEN STAFF AND PRESENT IN THE ROOM BUT QUICKLY BECOMES ANXIOUS WHEN SHE IS ALONE. PT HAS BEEN ABLE TO REST INTO THE SECOND HALF OF THE SHIFT. ASSESSMENT HAS REMAINED UNCHANGED. BED IN LOWEST POSITION, CALL LIGHT WITHIN REACH.
--- NOTE | 2020-04-27 17:57 | NUR ---
SHIFT SUMMARY- PT IS ALERT AND PLESANT. SHE REPORTED HAVING VISIUAL HALLUCINATIONS LAST NIGHT. SHE IS EATING AND DRINKING WELL. SHE HAS BEEN UP TO [facility] BEDSIDE CAMMODE THIS SHIFT. SHE REPORTED HAVING SOME STOMACHE PAIN THIS MORNING WITH WAS RELIEVED WITH TYLONEL AND SLEEP. SHE SLEPT INTERMITENTLY THROUGHOUT THIS SHIFT. SHE IS IMPULSIVE AND DOES NOT CALL WHEN SHE IS GETTING UP. HER BED IS IN THE LOW POSITION AND HER CALL LIGHT IS WITHIN REACH. SHE IS ON CAMERA FOR [employer]
--- NOTE | 2020-04-27 21:34 | NUR ---
Pt behavior Pt was yelling at RN. I was in supervising other patient while in shower (room 347). I told RN if she would come in there I would assisted pt in 351. When I got there she was standing in her door way with call light in her hand. I tried to her if she would give me the cord and take her walker so she could walk better. She said no and to me f off and get the hell away from her. She swung the call light at me and hit me and when she swung it the second time it came out of her hand and fell to the floor so she grabbed the fan off the bed side table and through it on the floor breaking it in to pieces. She then walked over to the bed and sat down. We asked her if she would get to where she was in a safe position (laying down) on the bed she told me to f off again. She started trying to hit, bit and kick at me and other staff that was trying to help. We was able to finally get her in a pose vest. When we walked out of the room she was able to grab the IV pole and push it over so it crashed to the floor and punctured a hole in the IV tubing and fluid was spraying on to floor. At this time I moved everything that she to throw out of her reach. Staff involved was my self Bailey Purdy, Abbi Gutierrez RN and Mateo Mosher CNA
--- NOTE | 2020-04-28 04:36 | NUR ---
SHIFT SUMMARY PT STARTED OFF THE SHIFT PLESANT AND COOPERATIVE WITH CARE, BUT THE EVENING PROGRESSED PT BECAME INCREASINGLY AGITATED AND COMBATTIVE TOWARDS STAFF. PT CONTINUED TO CLIMB OUT OF BED DESPITE REDIRECTION AND DIVERSIONAL ACTIVITIES. PT STARTED TO BECOME COMBATIVE TOWARDS STAFF WE ATTEMPTED TO GET HER BACK TO BED. PT YANKED CALL LIGHT OUT OF THE WALL AND WAS HITTING IT AGANIST THE WALL, THREATENING STAFF, CURSING AND ASKING US TO LEAVE THE ROOM. PT REMOVED HER MINI FAN OFF OF HER BEDSIDE TABLE AND THREW IT CAUSING IT TO BREAK. DR. BRYANT CALLED AND NOTIFIED OF PT AGRESSION AND NOT STAYING IN BED. RECEIVED ORDER FOR GIL VEST. PT ATTEMPTS TO KICK AND BITE STAFF WHEN PLACING RESTRAINT AND WHILE PERFORMING CARE. PT HAS SHORT PERIODS OF BEING CALM AND COOPERATIVE BUT CAN QUICKLY BECOME AGITATED AND COMBATIVE. PT ALSO REMOVED HER IV THIS SHIFT AND TOSSED IT TO THE OTHER SIDE OF THE ROOM. PT DID TAKE HER MEDS EARLIER IN THIS SHIFT WITHOUT DIFFICULTY. VITALS ARE STABLE. PHYSICAL ASSESSMENT OTHERWIST UNCHANGED. PT TAKES SOME PO FLUIDS BUT DECLINES ANYTHING TO EAT THIS SHIFT. PT RESTING AT THIS TIME. BED IN LOWEST POSITION, CALL LIGHT WITHIN REACH, BED ALARM IN PLACE.
--- NOTE | 2020-04-28 07:58 | NUR ---
Confused and grumpy but workable, has allowed care to be given by female aids but not by male nurse, refused all medication but asked for pain medication and took them with supervision, stated she did not want to go home and therefore states she has no motivation to get vest removed
--- NOTE | 2020-04-28 15:56 | NUR ---
CONTINUES TO TRY TO EXIT BED DISPITE WARNINGS OF POSSIBLE INJURY, DENIES SHE IS AT HOSPITAL AND WANTS TO RETURN TO TRAILER, HAS CALLED CALENDER WIND UP TENDER TO INFORM THEM SHE WAS IN [place] AND WANTED THE NURSE TO COME DOWN AND BRING HER BACK
--- NOTE | 2020-04-28 19:32 | NUR ---
pulled iv to prove she would and that she didn't need to be here, calling out and acting very aggressive much more than during day, rm air, bed in low positon and hope in place due to pt attempt to leave and willingness to assult staff who oppose her, bsr shared with pt and noc nurse
--- NOTE | 2020-04-28 20:06 | NUR ---
PHYSICIAN COMMUNICATION CONTACTED AUTOMATION AND CONTROL ENGINEER PHYSICIAN, DR CHICAS, TO ASK FOR A RENEWAL OF THE PATIENT'S RESTRAINT ORDER AND TO NOTIFY HIM THAT THE PATIENT IS VERY AGITATED AND PULLING OUT HER IV. DR CHICAS OKAYED THE RENEWAL OF THE RESTRAINT AND ORDERED 2-3 MG IM HALDOL Q6 HOURS.
--- NOTE | 2020-04-28 20:45 | NUR ---
PATIENT HAS BEEN YELLING AT AND THREATENING STAFF AND THROWING THINGS IN HER ROOM. THIS RN ADMINISTERED PRN HALDOL PER EMAR TO ASSIST PATIENT WITH CALMING DOWN. WHILE IN THE PATIENT'S ROOM SHE UNTIED HER GIL VEST AND TORE THIS RN'S BADGE AND VOCERA OFF AND THREW THEM ACROSS THE EDOUARD. THIS RN TIED THE GIL BACK TO THE BED AND LEFT THE ROOM. THE PATIENT THEN BEGAN TEARING HER GOWN APART WITH HER TEETH AND ENDED UP UNTYING HERSELF AGAIN. THIS RN THEN CALLED SECURITY TO AND VIDEO JOURNALIST, PRASHANTH TYLER, TO ASSIST WITH PLACING WRIST RESTRAINTS ON THE PATIENT.
--- NOTE | 2020-04-29 06:03 | NUR ---
SHIFT SUMMARY PATIENT ALERT AND ORIENTED ONLY TO SELF. AT THE BEGINNING OF SHIFT SHE PULLED OUT HER IV, WAS COMBATIVE, RESISTIVE TO CARE, AND VERBALLY AGRESSIVE TO STAFF. SHE ENDED UP NEEDING A PRN IM HALDOL INJECTION AND TO HAVE SOFT WRIST RESTRAINTS APPLIED. AFTER, SHE CALMED DOWN BUT BEGAN HAVING VISUAL HALUCINATIONS ABOUT A LITTLE GIRL AND A DOG. WHILE HALUCINATING SHE WAS TALKING LOUDLY ASKING STAFF TO HELP THE DOG. SHE FINALLY FELL ASLEEP FOR A SHORT DURATION AROUND 0300. BED IN LOWEST POSITION WITH WHEELS LOCKED AND ALARM ON. CALL LIGHT WITHIN REACH. REPORT GIVEN TO ONCOMING RN.
--- NOTE | 2020-04-29 18:32 | NUR ---
PT WAS PLEASANT AND COOPERATIVE DURING THE MORNING AND EARLY AFTERNOON. SHE WAS ABLE TO GET TO BSC AND ASSIST WITH CARES. DURING THE LATER AFTERNOON PATIENT BECAME COMBATIVE AND WAS NOT REDIRECTABLE AT ALL REQUIRING SECURITY AND 2 NURSES TO PUT HER BACK IN RESTRAINTS. PT WAS BITING AND PUNCHING STAFF DURING THIS BUT NO ACTUAL CONTACT WAS MADE. PT IS IN BED AT THIS TIME RESTING THOUGH QUITE ANGRY WITH STAFF. CALL LIGHT WITHIN REACH.
--- NOTE | 2020-04-30 05:24 | NUR ---
CHAR CONVEYOR TENDER CELLAR SUMMARY PT A&O TO SELF, CONFUSED, EXHIBITED VISUAL HALLUCINATIONS, PT STATED THAT SHE SEES A PUPPY IN THE ROOM, OR SOMETIMES A KID. PT HAD MULTIPLE ATTEMPTS OF BEING COMBATIVE TO STAFF. PT ALSO HAD MULTIPLE EPISODES OF CURSING AND SCREAMING AT STAFF. PT CONT ON FREDDY SOFT WRIST RESTRAINTS. PT REQUIRES FREQ REDIRECTION FROM STAFF. PT SLEPT FOR A VERY SHORT DURATION THIS SHIFT. PT IN BED AT THIS TIME. BED ALARM ON. CALL LIGHT WITHIN REACH.
--- NOTE | 2020-04-30 07:30 | NUR ---
FOUND PT VERY AGITATED UPON MORNING ASSESSMENT. SHE WAS PULLING ON SOFT RESTRAINTS AND BEING VERBALLY AGGRESSIVE WITH STAFF. REPORT FROM NIGHT NURSE STATED SHE HAD NOT SLEPT ALL NIGHT. PT IS HALLUCINATING AND CHEWING ON HER WRIST RESTRAINTS. PT IS UNABLE TO GIVE COMPLETE SENTENCES.
--- NOTE | 2020-04-30 17:53 | NUR ---
PT WAS CAMBATIVE MOST OF THE SHIFT. FLUCUATED BETWEEN BEING VERY COOPERATIVE AND SWEET AND WANTING TO SLIT THE THROATS OF THE NURSES ASSISTING HER . PT TOOK HER 1700 MEDS IN PUDDING . EATING DINNER UP IN CHAIR AT THIS TIME. CALL LIGHT WITHIN REACH.
--- NOTE | 2020-05-01 06:43 | NUR ---
HARD ROCK MINER BLASTING REPORT Beckie slept intermittantly all night. Extremely confused and hallucinating about family and objects in room. .She calmed towards the end of the shift, and this RN and the CABINET MAKER were able to give her a good shower which she was appreciative of . No complaints of pain except for her back and her right heel and mid back for which we cleansed and redressed the wounds with new mepilex
--- NOTE | 2020-05-01 17:32 | NUR ---
SUMMARY PT SITTING UP IN THE CHAIR, PT PLEASANTLY CONFUSED, IMPULSIVE, DOES NOT USE THE CALL LIGHT, BED ALARM AND CHAIR ALARM ON FOR SAFETY, UP TO VOID FREQUENTLY, VSS, WILL CONT TO MONITOR
--- NOTE | 2020-05-02 07:09 | NUR ---
ORAL SURGERY TECHNICIAN SUMMARY Patient slept well overnight waking 4-5 times to use BSC. Unable to remember to use the call light, Beckie swings her legs off the bed and "freezes" as the alarm goes off. She has much trepidation over standing and walking and requires lots of encouragement. She will even remind staff to use the gait belt when she gets up. 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 Urine is still extremely odorous and patient is still complaining of severe burning with urination.
--- NOTE | 2020-05-02 18:25 | NUR ---
PT RESTING IN HER CHAIR AT BEDSIDE. PT CONTINUING TO EXPERIENCE AH/VH WITH ANGER OUTBURSTS, COMFORTED WITH CALM COMMUNICATIONS. PT ATE ALL THREE MEALS, LINE WNL AND FLUSHING, STAFF WILL CONT. TO MONITOR FOR CHANGES.
--- NOTE | 2020-05-02 22:29 | NUR ---
5 pt very agitated, has gotten up out of bed several times. pt cusses at staff and throws objects at staff. pt once has used phone in room and kept banging it on the bed railing. 2000 haldol im given. will continue to monitor. 2199 pt resting in bed with eyes closed. bed alarm in place, call light within reach, bed in lowest position.
--- NOTE | 2020-05-03 06:27 | NUR ---
night manager summary pt a/o x1 to self. slept well tonight. pt incontient/ continent at times and will get out of bed to use the commode. pt is 1 assist w/ fww. pt is impulsive and paranoid. vss. no acute changes. bed alarm in place, call light within reach. vss.
--- NOTE | 2020-05-03 17:29 | NUR ---
SHIFT SUMMARY PT IS A&O TO SELF. PT HAS BEEN IN GOOD MOOD ALL SHIFT. PT HAS BEEN TRYING TO TRANSFER SELF FROM CHAIR TO BATHROOM THROUGH OUT SHIFT. PT TRANSFERS WITH ONE PERSON ASSISTANCE, SOMETIMES STANDBY ASSIT. DURING AFTERNOON PT WAS CONFUSED AND CALLING SON. PT SON CALLED TO MAKE SURE SHE WAS OKAY, LET PT SON KNOW SHE WAS CONFUSED BUT PLESANT AND RESTING IN HER CHAIR. PT JUST WENT TO BATHROOM WITH LEAD CARGO MOVER ASSITANCE, CURENTLY RESTING IN CHAIR WITH ALARM ON AND CALL LIGHT WITH IN REACH. PT DENIES P/N.
--- NOTE | 2020-05-03 19:02 | NUR ---
DURING AFTERNOON CHANGED DRESSING ON PT BACK.
--- NOTE | 2020-05-04 05:57 | NUR ---
LENS AND FRAMES PRESCRIPTION CLERK SUMMARY PT A/O X1. SLEPT MOST OF THE NIGHT. REPOSITIONING PROVIDED OVERNIGHT. PT HAS NOT BEEN COOPERATIVE AND DISMISSIVE TOWARDS NURSE. REFUSED TO TAKE OVERNIGHT MEDICATION. GETS UP WITH STANDBY TO 1 ASSIST TO THE BATHROOM. VSS, NO ACUTE CHANGES.
--- NOTE | 2020-05-04 17:58 | NUR ---
SHIFT SUMMARY. ALERT, ORIENTATED TO SELF, IS SOMETIMES AWARE THAT SHE IS IN THE HOSPITAL, PLEASANT AND COOPERATIVE WITH CARE MOST OF THE SHIFT. PT BECAME SLIGHTLY AGITATED THIS AFTERNOON IN REGARDS TO WANTING TO GO HOME, ATTEMPTED REDIRECTION, DISTRACTION, REORIENTATION. NON PHARMACEUTICAL INTERVENTIONS WERE NOT EFFECTIVE SO ONE DOSE OF SEROQUEL 50MG PO GIVEN PRN PER ORDERS AND AGITATION SOON RESOLVED. PT REPORTS MILD PAIN TO LOWER BACK, REFUSED APAP AND HEAT PAD. PT DENIES N/V, SOB. PT SHAYE FALL RISK, BED/CHAIR ALARM AND CAMERA UTILIZED FOR SAFETY. NO NEW CHANGES OR CONCERNS.
--- NOTE | 2020-05-05 04:50 | NUR ---
MEDICAID ANALYST SUMMARY PT AAOX1, IRRITABLE AND UNCOOPERATIVE WITH CARE MOST OF THE TIME. AT START OF SHIFT PT WAS VERY IRRITATED AND AGRESSIVE TOWARD STAFF, SOMETIMES THROWING SMALL ITEMS AT US. PT REFUSED HS MEDICATIONS AND REFUSED TO PARTICIPATE IN PHYSICAL ASSESSMENT. HOWEVER, PT APPEARS IN NO ACUTE DISTRESS. MOOD IMPROVED SLIGHTLY THE NIGHT WENT ON AND WAS MORE COOPERATIVE AT TIMES. PT HAS SLEPT MOST OF THE TIME. WILL CONTINUE TO MONITOR.
--- NOTE | 2020-05-05 19:26 | NUR ---
PT IS A/OX3, PLEASANT AND COOPERATIVE TODAY, THE PT APPEARS TO BE BREATHING EASILY ON RA, THE PT TODAY WAS COOPERATIVE WITH CARE, THE PT WORKED WITH THE PHYSICAL AND THE OCCUPATIONL THERAPIST, PT WAS COMPLIANT WITH HER MEDICATION, PT WAS UP IND IN HER ROOM, CALL LIGHT IN REACH, NNO OTHER CHANGES NOTICED THIS SHIFT
--- NOTE | 2020-05-06 05:19 | NUR ---
BAR BACK SUMMARY PT AAOX2. PT MORE CALM THIS SHIFT BUT STILL REFUSING SOME CARE. PT REFUSED HS MEDICATIONS AND PHYSICAL ASSESSMENT FROM THIS RN. PT ALLOWS MORE HELP FROM FEMALE RN. PT SEEMS MORE PARANOID ABOUT MALE STAFF AND IS ALWAYS WANTING TO KNOW "WHAT THEY ARE UP TO". PT HAS BEEN INDEPENDENT IN ROOM AND GETS UP TO BATHROOM ON HER OWN. VSS, WILL CONTINUE TO MONITOR.
--- NOTE | 2020-05-06 17:59 | NUR ---
PT IS ALERT ORIENTED TO SELF, THE PT HAS BEEN UP IND IN HER ROOM TO THE BATHROOM, THE PT REPORTED CONSTIPATION TODAY, EXTRA BOWEL CARE WAS GIVEN THE PT REPORTED HAVING A SMALL BM, THE PT APPEARS TO BE BREATHING EASILY ON RA AT THIS TIME, CALL LIGHT IN REACH, WILL CONTINUE TO MONITOR AND ASSESS FOR CHANGES
--- NOTE | 2020-05-06 19:04 | NUR ---
PT FELL PT FELL AT 1850, PT WAS AMBULATING IN THE EDOUARD WAY WHEN RETURNING TO HER DARK ROOM, SHE RAN INTO THE COMPUTER KNOCKING HER DOWN, SHE DENIED DIZZINESS/LIGHT HEADEDNESS, WAS CALLED AND NOTIFIED, VSS
--- NOTE | 2020-05-07 04:36 | NUR ---
SUMMARY: PT ORIENTED TO SELF AND FAMILY BUT WAS CONFUSED MOST OF NOCTE OTHERWISE. SHE WAS MUCH MORE ANXIOUS, PARANOID AND DIFFICULT TO REDIRECT THIS SHIFT IN COMPARISON TO PREVIOUS NIGHT. SHE REMAINS SUSPICIOUS OF MALE STAFF AND WAS HAVING VISUAL HALLUCINATIONS OF DOGS IN ROOM. SHE BECAME FIXATED ON "NEEDING TO GO HOME" AND WAS IMPULSIVE OOB OFTEN. BED ALARM ARMED W/CAMERA MONITORING COMMENCED AGAIN FOLLOWING PT FALLING ON DAY SHIFT PRIOR TO RN REPORT. BRUISE AND ABRASION NOTED TO R.KNEE AND PT REPORTS SORE KNEES AND R. ELBOW BUT ROM DOESN'T APPEAR LIMITED AND NO PRN PAIN MEDS WERE REQUIRED. PT USED TOILET/BSC W/SBA BUT HAD URGE INCONTINENCE MOSTLY W/ATTENDS AND LINEN CHANGES REQUIRED PRN. KPAD IN PLACE FOR CHRONIC BACK PAIN. SHE HAD DIFFICULTY REORIENTING DESPITE ATTEMPTS AND PRN SEROQUEL WAS PROVIDED AT HS W/O ANY REAL NOTICEABLE AFFECT. NO ACUTE CHANGES, VSS/AFEBRILE. WCTM AND REPORT TO DAY RN.
--- NOTE | 2020-05-07 12:34 | NUR ---
PATIENT IS AGITATED, STATING IS SHE IS LEAVING TODAY. SHE IS VERBALLY ABUSIVE TO ZOHAIB JARRETT, REFUSING TO SHOWER/BATHE OR BRUSH HER TEETH. ALSO REFUSED TO EAT LUNCH. ATTEMPTED TO PLACE YELLOW GOWN ON PATIENT WHICH SHE ADAMANTLY REFUSED TO WEAR. SHE IS CURRENTLY WEARING A DISPOSABLE SCRUB TOP AND REFUSES TO WEAR BOTTOMS. OFFERED PRN DOSE OF SEROQUEL, WHICH SHE ALSO REFUSED. EDUCATED PATIENT ABOUT FALL PRECAUTIONS, SHE IS S/P FALL YESTERDAY, WANTING TO KEEP HER SAFE, AND ABOUT THE PLAN GOING FORWARD, BUT SHE REFUSED TO PARTICIPATE IN TEACHING. WILL CONTINUE TO OFFER REFRESHMENTS AND MONITOR HER FOR SAFETY. MAY NEED PRN HALDOL IM OR GIL VEST.
--- NOTE | 2020-05-07 17:50 | NUR ---
SHIFT SUMMARY THE PT HAS BEEN AGITATED FOR MOST OF THE DAY REFUSING CARE, ASSISTANCE AND MEDS THROUGHOUT THE SHIFT. THE PT EXPRESSES HER DESIRE TO LEAVE AND HER FRUSTRATION W HER SON FOR "ABANDONING HER". THE PT HAS BECOME LESS AGITATED AT THE END OF THE SHIFT AND TOOK HER 1700 MEDS. PT WAS TAUGHT OF THE NEED FOR ASSISTANCE AND THE USE OF THE FWW ESPECIALLY DUE TO HER RECENT FALL. PTIS EATING DINNER IN BED W CALL LIGHT WITHIN REACH, WCTM.
--- NOTE | 2020-05-08 04:45 | NUR ---
SHIFT SUMMARY A/O, ABLE TO MAKE NEEDS KNOWN. COOPERATIVE AND PLEASANT WITH CARE. NO AGITATION OR OUTBURSTS NOTED. UP X2 WITH ASSISTANCE TO BATHROOM; REMAINS UNSTEADY AND REALLY NEEDS STAFF ASSISTANCE. REFUSED FWW. APPEARED TO REST MUCH OF NIGHT. C/O PAIN/DISCOMFORT TO BILATERAL KNEES AND RFA; MEDICATED PER EMAR. NO ACUTE CHANGES NOTED. VSS/AFEBRILE. BED REMAINS IN LOWEST POSITION. CONTINUE CURRENT PLAN OF CARE. REPORT TO ONCOMING RN.
--- NOTE | 2020-05-08 16:59 | NUR ---
Initial spiritual care note: Beckie was talkative and told me stories from her life. She was confused and shifted topics often mid-sentance. She complained that "they" are keeping her here and told me her plans to get out this afternoon. Apparently, she has been picked up by police who know her by name. She's proud of this and takes pride in her independance. She spoke about the of her in 1979. We had an easy rapport and she laughed/smiled easily with me. When she began to get angry with "being held prisoner" she was easily re-directed to another topic. Per chart, she is Jew, but this appears to be in label only. Regardless, Beckie appeared to enjoy companionship. I rubbed lotion onher arms and hands and filed her fingernails at her request. She does appear lonely and would most likely benefit from casual conversation/companionship. Auto Driver services will remain available.
--- NOTE | 2020-05-08 19:38 | NUR ---
PATIENT, WHO IS S/P FALL ON 05/06/20, BECAME ADAMANT ABOUT LEAVING THE HOSPITAL, VERBALLY ABUSIVE TO NUMEROUS STAFF, REFUSING TO COOPERATE WITH CARE. THIS BEHAVIOR CONTINUED TO ESCALATE UNTIL ABOUT 180 WHEN PATIENT WAS SITTING IN A CHAIR AT THE END OF THE EDOUARD AND BEGAN TO STRIKE HER CALL LIGHT (TAKEN FROM HER RROM) AGAINST THE WINDOW IN AN ATTEMPT TO BREAK IT. STAFF GOT HER BACK TO HER ROOM, AND SHE BEGAN TO VERBALLY THREATEN STAFF AND WISHING THEM . THIS AUTHOR PREPARED TO GIVE HER HALDOL IM, WHICH SHE REFUSED. DAKOTA NUÑEZ WAS CALLED AT 1830. Suzy ARCE RN FROM PALLIATIVE CARE CAME TO TRY TO TALK PATIENT DOWN AND HAVE HER COOPERATE, BUT PATIENT WOULD NOT. LOS NURSING RESTAURANT LEAD SPOKE TO PATIENT, ADVISED THAT HALDOL WOULD HELP HER RELAX. SECURITY PERSONNEL GOT PT BTB, WHERE SHE BECAME ATTEMPTING TO HIT AND BITE STAFF. AT THAT POINT, HALDOL IM WAS GIVEN. THIS AUTHOR CALLED REMOTE MONITORING STAFF TO UPDATE THEM ON PATIENT'S CONDITION AND BEHAVIOR TO WATCH FOR. A FEW MINUTES LATER, PATIENT ATTEMPTED TO GET OOB OVER THE SIDE RAIL; SHE WAS PLACED BACK IN BED AND EDUCATED ABOUT BEHAVIORS THAT COULD LEAD TO BEING PLACED IN RESTRAINTS. SHE CONTINUED TO VERBALLY ABUSE AND THREATEN STAFF, KICKING AND TRYING TO BITE. WHEN STAFF WALKED AWAY, SHE ATTEMPTED TO GO OVER THE SIDE RAIL AGAIN. SINCE PATIENT WOULD NOT COOPERATE OR FOLLOW DIRECTIONS AND WAS BECOMING MORE OF A DANGER TO HERSELF, SHE WAS PLACED IN SOFT RESTRAINTS X 4 EXTREMITIES AT 1845.
--- NOTE | 2020-05-08 20:24 | NUR ---
SHIFT SUMMARY: DAKOTA NUÑEZ CALLED NEAR END OF SHIFT FOR INCREASED SAFETY ISSUES AND PT'S ESCALATING AGRESSION. REFUSED MEDICATIONS. C/O SOME DISCOMFORT IN R ELBOW, DECLINED OFFERED TYLENOL STATING "IT DOESN'T DO ANYTHING." DID NOT REQUEST ALTERNATE PAIN MEDICATION D/T PT'S CONFUSION. REFUSED TO EAT LUNCH AND DINNER. ASSISTED TO CALL HER SON X 3, BUT WAS UNABLE TO REACH HIM, WHICH ADDED TO HER FRUSTRATION AND ANGER. SPENT THE DAY AMBULATING FROM HER ROOM TO THE WINDOW AT THE END OF THE EDOUARD, WANTING TO LEAVE, TRYING TO CALL A CAB TO PICK HER UP, DEMANDING HER CLOTHING. USING BR, DECLINED TO STATE IF SHE HAD BM. WAS COOPERATIVE ENOUGH IN THE MORNING TO COOPERATE WITH A SHOWER.
--- NOTE | 2020-05-09 04:52 | NUR ---
SHIFT SUMMARY ALERT, ABLE TO MAKE NEEDS KNOWN. CONTINUES TO BE VERBALLY ABUSIVE TOWARDS STAFF AND DURING PERSONAL CARE ATTEMPTS TO SWAT OR KICK AT STAFF. VERY PASSIVE ABOUT ANY CARES THAT NEEDS TO BE PERFORMED. HAS REFUSED PO FLUIDS T/O SHIFT EXCEPT WHEN SHE TOOK HER PO NIGHT MEDS. CALLING OUT AND YELLING SEVERAL TIMES T/O SHIFT. HAS REMAINED IN BILATERAL WRIST AND ANKLE RESTRAINTS T/O NIGHT. VSS/AFEBRILE. BED REMAINS IN LOWEST POSITION; ALARM ON. CALL LIGHT WITHIN REACH. WILL CONTINUE WITH CURRENT PLAN OF CARE. REPORT TO ONCOMING RN.
--- NOTE | 2020-05-09 18:22 | NUR ---
SHIFT SUMMARY PATIENT ALERT TO SELF. SHE IS OUT OF RESTRAINTS AT THIS TIME. SHE IS STILL TRYING TO GET UP. SHE DENIES PAIN AT THIS TIME BUT SHE IS JUST VERY ANXIOUS TONIGHT. SHE KEEPS ASKING ABOUT POPCORN. SHE HAS BEEN PLEASANT AT TIMES BUT THINKS SHE IS HOME IN HER TRAILER.
--- NOTE | 2020-05-10 05:01 | NUR ---
SHIFT SUMMARY. PT REFUSED AM VS. OBSERVED THROWING HER PHONE IN HER ROOM AFTER HER SON DID NOT ANSWER HER CALL. NO ATTEMPTS TO INJURE SELF OR OTHERS. A/O TO SELF ONLY. SPEECH IS CONFUSED AND NONSENSICLE. PT HAS VISUAL HALLUCINATIONS BUT IS NOT DISTRESSED BY THEM. FREQUENTLY SOUNDING BED ALARM AND GETTING UP TO WALK AROUND ROOM AND WALKS TO HALLWAY LOOKING FOR SON. STAFF STANDING CLOSE TO PT. GAIT IS WEAK BUT STEADY. PT DOES NOT REDIRECT WELL. ARGUES W/ STAFF AND OFFERS OCCASIONAL RUDE REMARKS AND SARCASM IN RESPONSE TO STAFF ASSISTANCE. BOTH CONTINENT AND INCONTINENT OF URINE. APPEARS PAINFUL, HOLDING LOW BACK WHEN FIRST AMBULATING IN THE MORNING. REFUSES OFFER OF ANALGESIC. PT SLEPT WELL FOR MUCH OF THE NIGHT. NO ACUTE CONCERNS AT THIS TIME.
--- NOTE | 2020-05-10 18:20 | NUR ---
SHIFT SUMMARY PATIENT IS PLEASANT, ALERT TO SELF. SHE IS ONE PERSON ASSIST. WORKED WITH PHYSICAL THERAPY TODAY. SHE ALSO WALKED LAPS TWICE. NO ACUTE CONCERNS AT [facility]. AWAITING PLACEMENT.
--- NOTE | 2020-05-11 04:18 | NUR ---
SHIFT SUMMARY: VSS. AFEB. AAOX1. RESTLESS AT START OF THE NIGHT, IRRITABLE, AGITATED, AND IMPULSIVE. GETS UP FREQUENTLY AND WALKS TO LOOK OUT HER ROOM WHERE SHE VERBALIZES DELUSIONS ABOUT OTHER PATIENTS AND STAFF ACTIVITIES. DOES NOT REDIRECT WELL. ARGUMENTATIVE AND PARANOID. NO AGGRESSION HOWEVER. EVENTUALLY DOES RETURN TO ROOM W/ STAFF ENCOURAGEMENT. GAIT IS STEADY BUT WEAK. REFUSED BEDTIME VS AND MOST OF NURSING ASSESSMENT. ADDITIONAL DOSE OF SEROQUEL GIVEN AT HS, PT WAS ABLE TO CALM DOWN AND EVENTUALLY WENT TO SLEEP. WAKING UP TO VOID TONIGHT, BUT FALLING BACK TO SLEEP EASILY. MOOD IS BETTER UPON WAKING UP AT ABOUT 0300. ALLOWED VS AND INTERACTED MORE PLEASANTLY W/ STAFF. NO ACUTE CONCERNS AT THIS TIME.
--- NOTE | 2020-05-11 17:15 | NUR ---
PATIENT HAD A SECURITY STANDBY DUE TO AGRESSION AND AGITATION. SHE WAS GIVEN ONE B52 (NOTED IN THE EMAR). SHE WAS THROWING OBJECTS AT SECURITY AND FLINGING THINGS FROM HER TABLE. SHE WAS SHOUTING OBSCENITIES AT THE STAFF. SHE IS NOW RELAXING AND THIS TOOK HER ABOUT 45 MINUTES TO GET CALMED DOWN. PATIENT BED ALARM ON. NO RESTRAINTS AT THIS TIME.
--- NOTE | 2020-05-11 18:05 | NUR ---
shift summary patient got very agitated today. she is curently resting in bed after benadryl, ativan, haldol. she tried to throw objects at staff and was trying t leave while yelling obscenities. She is now relaxed. did have security for standby. spoke with Dr garcia about the patient and she stated that the patient is not understanding of her current condition and not safe to leave. patient is now in bed, very tired.
--- NOTE | 2020-05-12 06:44 | NUR ---
SHIFT SUMMARY: VSS. AFEB. PT HAS BEEN SLEEPING WELL MOST OF THE NIGHT. MORE LETHARGIC TONIGHT BUT DOES WAKE UP IN RESPONSE TO VERBAL STIMULI. EXPRESSING ANGER TOWARDS STAFF, MAKING STATEMENT SUCH , "ARE YOU TRYING TO KILL ME?", "I HATE ALL OF YOU". REFUSING MEDS. HAS BEEN BOTH CONTINENT AND INCONTINENT TONIGHT. IS MORE ALERT THIS MORNING. REFUSED AM MEDS. NO AGGRESSION TONIGHT. WILL CONT TO MONITOR.
--- NOTE | 2020-05-12 17:52 | NUR ---
PATIENT IS ALERT. SHE IS CONFUSED. PATIENT WILL GET OUT OF BED AND OUT OF THE CHAIR ON HER OWN. BED ALARM AND CHAIR ALARM ON. PATIENT IS AGITATED AT THIS TIME AND BELIEVES SHE IS SOMEWHERE OTHER THAN HERE. RN IS SITTING IN THE ROOM WITH THE PATIENT AT THIS TIME. WILL CONTINUE TO MONITOR.
--- NOTE | 2020-05-12 21:21 | NUR ---
ASSUMED CARE. PATIENT IS UP AND DOWN SETTING OFF THE BED ALARM. SHE IS VERY UNSTADY ON HER FEET. AOX1, AUDITORY AND VISUAL HULLUCINATIONS, SEEING PEOPLE AND TALKING TO THEM IN THE ROOM, WHICH IS NOT THERE. SHE IS COOPERATIVE AT THIS TIME. ENCOURAGED HER TO STAY ON THE BED AND NOT GET UP WITH OUT HELP. SHE CONTINUES TO TAKE OFF HER YELLOW SOCKS WELL, SHE LIKES TO BE BAREFOOT. BED ALARM IS ON, CAMERA. BRUSING TO THE RIGHT KNEE WITH SCAB, MILD SWELLING. DRESSING TO BACK INTACT. SHE WANTED A SANDWHICH WHICH WAS GIVEN TO HER. SHE ONLY ATE A FEW BITES. SHE DID WALK TO THE BATHROOM VOIDED, CHANGED ATTENDS. GAVE PM MEDS WITH ANOTHER DOSE OF SEREQUEL. BED ALARM IS ON, CALL LIGHT IS ON THE TABLE IN REACH.
--- NOTE | 2020-05-13 05:22 | NUR ---
SHIFT SUMMARY: AOX1, PLEASANTLY CONFUSED, AUDITORY AND VISUAL HULLUCINATIONS T/O NIGHT. VERY IMPULSIVE AND MILD AGGITATION. EXTRA SERQUEL WAS GIVEN PRIOR TO BEDTIME. ATE PART OF SNACK. INCONTIENT/CONTIENT. CONTINUES TO COMPLAIN OF MILD PAIN RIGHT KNEE WITH MOVEMENT. DENIES TYLENOL STATES DOES NOT WORK. SLEPT OFF AND ON. BP LOW IN THE 90'S THIS AM. REST OF VS WNL. MEDS IN APPLESAUCE. ALARMS ARE SET, CALL LIGHT IN REACH. DOES REFUSE TO WEAR NON-SLIP SOCKS. AWAITING GUARDIANSHIP.
--- NOTE | 2020-05-13 16:32 | NUR ---
Spiritual care visit conducted. Patient is lying in bed and alert. Patient tells me about the things that make her angry and she is difficult at times to redirect. Once she gets to more light subject matter she is quite pleasant and even humerous. She shares about everything from family to her beliefs. Patient shares some of the personal issues that her anger comes from. I listen empathically and provide pastoral counselor manager and prayer. Patient responds well and asks if I could return for another visit sometime. I will continue to remain available to patient and family.
--- NOTE | 2020-05-13 17:51 | NUR ---
PATIENT IS ALERT AND ORIENTED TO SELF AND FOLLOWING DIRECTIONS. PRN SEROQUEL WAS ADMINISTED THIS AFTERNOON FOR AGITATION. PATIENT IS A SBA TO THE BATHROOM. BED ALARM AND CHAIR ALARM ON APPROPRIATELY. SHE HAS BEEN COOPERATIVE WITH CARE. KNEE PAIN TREATED PER EMAR. WILL CONTINUE TO MONITOR
--- NOTE | 2020-05-13 19:38 | NUR ---
ASSUMED CARE. DESI IS BEING IMPULSIVE CLIMBING OUT OF BED AND GETTING UP FROM THE CHAIR. JUST NOT ABLE TO SIT STILL. SHE IS BEING PLEASANT. PAIN IN RIGHT KNEE, BRUISING IMPROVING. ATTENDS DRY. LUNG SOUNDS CLEAR, HR SINUS. BTX4, STATES A BM THIS AM. SHE IS SUCH A CHARACTER, WATCHING OUT THE DOOR TO SEE IF ANYONE IS WATCHING BEFORE SHE GETS UP. ALARMS ARE SET IN CHAIR AND BED. CALL LIGHT IS IN REACH BUT SHE FORGETS TO USE IT. VERY UNSTEADY ON HER FEET, HIGH FALL RISK. WILL MONITOR.
--- NOTE | 2020-05-14 05:41 | NUR ---
SHIFT SUMMARY: AOX1, PLEASANTLY CONFUSED ITH AUDITORY AND VISUAL HULLUCINATIONS. COOPERATIVE THIS SHIFT, FOLLOWS DIRECTION. DIFFICULTY GOING TO SLEEP AT FIRST AND WAS VERY ACTIVE, UNABLE TO CALM MIND TO SLEEP. DID GIVE PRN SEREQUEL. SHE COULD BENIFIT FROM AN INCREASE OF HER SEREQUEL SHE APPEARS TO DO BETTER. WILL TALK TO DAY SHIFT RN. ABLE TO USE WALKER TO GET BACK AND FORTH TO THE BATHROOM. DOES NOT REMEMBER TO USE CALL LIGHT BUT SHE WAS REMEMBERING THINGS FROM PREVIOUS CONVERSATIONS TONIGHT. STILL COMPLAINS OF ACHE AND PAINS IN HER RIGHT KNEE, SHE DOES NOT TAKE TYELNOL. COULD BENIFIT FROM PAIN MED FOR BEDTIME TO HELP HER SLEEP. VOIDING WELL, GOOD APPETITE, NO BM THIS SHIFT. BED ALARM HAS REMAINED ON. PLAN: ASK FOR INCREASE IN SEREQUEL FOR BEDTIME. CURRENT DOSE 175MG, COULD BENIFIT FROM 200MG OR HIGHER. DC TYELNOL, ASK FOR TRAMADOL. SEMICONDUCTOR PACKAGES SEALER WORKING ON GUARDINSHIP.
--- NOTE | 2020-05-14 17:52 | NUR ---
SHIFT SUMMARY PT HAS BEEN GETTING OUT OF BED MORE FREQUENTLY THIS AFTERNOON THAN THIS MORNING. HAS BEEN MOSTLY REDIRECTABLE BUT HAS BEEN IRRITABLE AT TIMES. WOULDN'T TAKE HER PILLS THIS EVENING BUT WAS FINALLY CONVINCED THEY WOULD HELP HER AND SHE TOOK THEM. 1 PERSON ASSIST TO BATHROOM AND BACK.
--- NOTE | 2020-05-14 21:36 | NUR ---
VERY AGITATED, MULIPLE ATTEMPTS TO ET OUT OF BED, NONO REDIERCTABLE. ANTED TO GO HOME TO "GET MY DOGS". ATTEMPTED TO REDIRECT TO CURRENTLY BEING IN HOSPITAL AND TO TRY TO CALM DOWN. VERBALLY SCOLDED NURSE/STAFF. MEDICATION FOR AGITATION ADMINISTERED INTO LEFT THIGH. STILL CLIMBING OUT OF BED SOME HOUR LATER. MD NOTIFIED AND GIL VEST RESTRAINT OBTAINED. CALL LIGHT IN REACH
--- NOTE | 2020-05-15 04:28 | NUR ---
SHIFT SUMMARY FOR FIRST FEW HOURS OF SHIFT, PT VERY ANGRY AND AGITATED, HIGH FALL RISK AND MULTIPLE ATTEMPTS TO GET OUT OF BED, BECAME MORE AGITATED AND ANGRY WHEN STAFF ATTEMPTED TO REDIRECT HER FOR HER SAFETY. IM MEDS ADMINISERED PER JUL - SEE JUL FOR DETAILS GIVEN, BUT STILL AGITATED AND MAKING ATTEMPTS TO GET OUT OF BED. PLACED IN GIL VEST FOR SAFETY PER MD ORDERS. PT TOOK SEVERAL HOURS TO CALM DOWN. STILL MAKING A FEW ATTEMPTS TO GET OUT OF BED, BUT GIL REMAINS IN PLACE. CALL LIGHT IN REACH. WILL CONINUE TO MONITOR
--- NOTE | 2020-05-15 16:32 | NUR ---
SUMMARY PT SITTING UP IN THE CHAIR AT THE BEDSIDE, PT REMAINS IMPULSIVE AND DIFFICULT TO REDIRECT, GIL VEST ON FOR SAFETY, PT RESISTANT TO SOME CARES, VSS, WILL CONT TO MONITOR
--- NOTE | 2020-05-15 19:09 | NUR ---
RESTING QUIETLY. HOB ELEVATED. REMAINS FALL RISK, GIL VEST IN PLACE. CALL LIGHT IN REACH
--- NOTE | 2020-05-16 04:37 | NUR ---
SHIFT SUMMARY HAS BEEN AWAKE AT INTERVALS. INTERMITTENT ATTEMPTS TO GET OUT OF BED WITHOUT STAFF ASSIST, REMAINS A HIGH FALL RISK AND THUS GIL VEST TO PREVENT FALLS. CALL LIGHT IN REACH. BED ALARM ON, CONFUSION CONTINUES.
--- NOTE | 2020-05-16 11:43 | NUR ---
PATIENT HAS BEEN VERY AGGITATED. VERBAL AND PHYSICAL WITH STAFF. ADMINISTERED A B52 PER EMAR. WILL EVALUATE RESULTS.
--- NOTE | 2020-05-16 15:48 | NUR ---
Patient was highly irritable and both verbally and physically agressive towards staff this morning. B-52 administered and seems to have calmed her down quite a bit. Patient remains in hope vest d/t impulsiveness. Vitals remain stable and WNL. No acute changes to report of at this time. will continue to monitor and provide care as needed.
--- NOTE | 2020-05-17 03:59 | NUR ---
CRIMINAL JUSTICE TEACHER SUMMARY PT A&O TO SELF AND PLACE. CONFUSED, UNCOOPERATIVE TO STAFF AT TIMES. MULTIPLE ATTEMPTS OF SELF TRANSFERRING WITHOUT ASSISTANCE FROM STAFF. PT HIGH FALL RISK, CONT ON GIL VEST. PT MEDICATED FOR FREDDY KNEE PAIN X1 PER EMAR. RESP EVEN AND UNLABORED, IN ROOM AIR. NO C/O CP, SOB, OR N&V. BED AT LOWEST POSITION, ALARM ON, CALL LIGHT WITHIN REACH.
--- NOTE | 2020-05-17 15:24 | NUR ---
PATIENT HAS BEEN OUT OF RESTRAINTS SINCE THE START OF THIS SHIFT. SHE IS ANXIOUS AND VULGAR WITH HER LANGUAGE BUT HAS BEEN WALKING ALL OVER THE SCU UNIT. SHE IS PRETTY STABLE ON HER FEET HOWEVER VERY CONFUSED. SHE KEEPS ASKING IF WE HAVE HER MOTHERS PHONE NUMBER; IT IS UNKNOWN FOR CERTAIN BUT LIKELY HER MOTHER HAS ALREADY THE PATIENT IS 84 YEARS OLD. SHE IS REDIRECTABLE, HOWEVER HAS A VERY SHORT-TERM MEMORY AND REPEATS THE SAME QUESTIONS OR CONCERNS. PATIENT IS CURRENTLY SITTING IN A CHAIR AT THE END OF THE EDOUARD LOOKING OUT THE WINDOWS WAITING "FOR HER CAB TO ARRIVE". WILL CONTINUE TO MONITOR AND PROVIDE CARE NEEDED.
--- NOTE | 2020-05-17 16:37 | NUR ---
PATIENT BEGAN TO START GETTING INCREASINGLY AGGITATED THE DAY PROGRESSED. PATIENT BECAME INCREASINGLY VERBALLY AND PHYSICALLY ABUSIVE TOWARDS STAFF. ATTEMPTED TO GIVE PATIENT HER SCHEDULED SEROQUEL HOWEVER SHE REFUSED TO TAKE IT. B-52 ADMINISTERED AND PATIENTS' AGGITATION AND AGRESSION RAMPED UP MAJORLY. PATIENT THREW THE THERMOMETER FROM THE VITALS MACHINE AND WAS RE-DIRECTED TO HER ROOM WHERE SHE BEGAN TO RIP AT THE COMPUTER. HER OLD GIL VEST WAS GRABBED AND PLACED ON THE PATIENT AND THE PATIENT WAS ASSISTED IN TO HER BED. DR DÍAZ CALLED AND NOTIFIED AND ORDER FOR RESTRAINTS GIVEN. DR. DÍAZ ALSO NOTIFIED THAT PATIENT IS REFUSING PO MEDS AND WOULD LIKELY REFUSE HER SCHEDULED DOSE OF XARELTO.
--- NOTE | 2020-05-18 04:00 | NUR ---
SHROUD LINE TIER SUMMARY PT A&O TO SELF, CONFUSED, PT REQUIRES MULTIPLE REDIRECTIONS FROM STAFF. UNCOOPERATIVE AT TIMES. MULTIPLE ATTEMPTS OF SELF TRANSFERRING WITHOUT ASSISTANCE FROM STAFF. PT HIGH FALL RISK, CONT ON GIL VEST. PT ALSO NOTED TO HAVE VISUAL HALLUCINATIONS, PT KEPT ASKING THIS RN ABOUT THE "DOGS" IN THE ROOM AND IN REGARDS TO A "COLLETTE". PT MEDICATED FOR FREDDY KNEE PAIN X1. NO C/O CP, SOB, OR N&V. PT CALM AND RESTED IN BED AT THIS TIME. BED AT LOWEST POSITION, ALARM ON, CALL LIGHT WITHIN REACH.
--- NOTE | 2020-05-18 14:49 | NUR ---
PATIENT HAS BEEN CALMER TODAY, COMPARE TO YESTERDAY AFTERNOON. i HAVE ATTEMPTED ANOTHER APPROACH BY GIVING THE PATIENT PRN SEROQUEL PRIOR TO HER "RAMPING UP" WHICH IS ALSO WHEN SHE REFUSES TO TAKE PO MEDS. THIS APPROACH SEEMS TO BE EFFECTIVE THUS FAR AND I AM HOPING TO BE ABLE TO AVOID HAVING TO GIVE HER A B-52. GIL VEST UNTIRED AT 1300 AND DISCONTINUED. WILL REQUEST NEW ORDER FOR GIL VEST NEEDED. PATIENT IS ASLEEP IN BED AT THIS TIME. CALL LIGHT IN REACH. WILL CONTINUE TO MONITOR AND PROVIDE CARE NEEDED,
--- NOTE | 2020-05-19 04:44 | NUR ---
REINSURANCE ANALYST SUMMARY PT A&O TO SELF, CONFUSED, EASILY REDIRECTABLE THIS SHIFT, SOME AGITATION AND ANXIETY NOTED, PT HAD VISUAL HALLUCINATIONS OF A KID. PT MEDICATED FOR PAIN PER EMAR. NO C/O CP, SOB, OR N&V. PT CALM AND RESTED IN BED AT THIS TIME. BED AT LOWEST POSITION, ALARM ON, CALL LIGHT WITHIN REACH.
--- NOTE | 2020-05-19 16:56 | NUR ---
SHIFT SUMMARY- PT A/O TO PERSON AND PLACE. PT A SBA UP IN ROOM, PT USES FURNITURE TO GET AROUND IN HER ROOM, APPEARS TO BE PRETTY STEADY. PT HAS BEEN PLEASANT AND COOPERATIVE T/O MOST OF THE DAY. PT SEEMS TO GET IRRITATED WITH THE ALARMS BUT IS EASILY REDIRECTED. PT REFUSED MEDS THIS AM BUT DID AGREE TO TAKE HER EVENING MEDS WITH APPLE SAUCE. LS CLEAR, ON RA. PT REPORTS BILAT KNEE PAIN WELL PAIN IN RIGHT WRIST THAT GOES UP HER ARM, WRIST BRACE HAS BEEN ORDERED AND PT TOOK TRAMADOL X1. PT CONT TO AWAIT PLACEMENT AT THIS TIME, NO OTHER ACUTE CHANGES THIS SHIFT.
--- NOTE | 2020-05-19 18:58 | NUR ---
S[iritual care note: Beckie was pleasant and talkative this afternoon. She is at times confused and sees things in room that are not there. She is easily redirectable and responded well to encouragement and affirmation of care/safety. She appears to enjoy companionship and conversation. Prayer offered and declined. We have an easy rapport. I will continue to see Beckie as case-load permits.
--- NOTE | 2020-05-20 05:42 | NUR ---
SHIFT SUMMARY- PT. AGITATED THIS AM, REFUSING FOR NURSING STAFF TO ASSIST W/CARE AND BATHROOM USE. PT. CONFUSED WITH UNSTEADY GAIT. IMPULSIVE THIS SHIFT, ALSO HAVING VISUAL HALLUCINATIONS. PT. REFUSED NIGHT TIME AND EARLY AM MEDS, WELL AM VITALS. NO COMPLAINTS OF PAIN LAST NIGHT, DENIES NEEDS. CALL LIGHT WITHIN REACH, SIDE RAILS UPX3, AND BED ALARM ON. WILL CONT TO MONITOR.
--- NOTE | 2020-05-20 16:42 | NUR ---
SHIFT SUMMARY- PT A/O TO SELF ONLY. PT IRRITABLE THIS AM, PRN SEROQUEL GIVEN X1 THIS AM AND PT HAS BEEN PLEASANT T/O THE DAY. PT UP TO BATHROOM INDEP USING FURNITURE OR SBA, PT NOTED TO BE SLIGHTLY MORE UNSTEADY AFTER SEROQUEL DOSE THIS AM. LS CLEAR, ON RA. PT HAS DENIED ANY PAIN TODAY. PT WITH GOOD APPETITE. PT INCONT OF URINE. PT CONT TO AWAIT PLACEMENT. NO OTHER ACUTE CHANGES THIS SHIFT.
--- NOTE | 2020-05-21 04:49 | NUR ---
SHIFT SUMMARY: PT IS ALERT AND ORIENTED TO SELF. PT IS AGITATED AND VERBALLY ABUSIVE TO STAFF. PT OUT OF HER ROOM WANDERING THE HALLWAY ATTEMPTING TO GO INTO OTHER PATIENTS ROOMS, SOMEWHAT REDIRECTABLE. PT REFUSED HER EVENING MEDICATIONS. PT PLACED HER BSC IN FRONT OF HER DOOR BEFORE GOING TO SLEEP; I ALLOWED HER TO DO THIS IN ORDER TO AVOID CONFRONTATION AND INCREASED AGITATION, PT IS ON CAMERA, CHECKED IN WITH MONITORS TO ENSURE PATIENT SAFETY. PT REPORTS BACK PAIN, REFUSED MEDICATION. PT SHOWS NO S/S FOR NAUSEA, VOMITING OR SOB. PT CURRENTLY SITTING ON HER BED WITH HER DOOR BLOCKED; PLAN TO ENTER THE ROOM AROUND 0600 TO OFFER MORNING MEDICATION. WILL CONTINUE TO MONITOR.
--- NOTE | 2020-05-21 09:00 | NUR ---
PT PLEASANT COOP THEN VASCILATES TO IRRITABLE, PACING OCCATIONALLY IN HALLS. WANTS TO GO HOME. ABLE TO TELL ME , NAME. FOLLOWS SOME INST. H/R REG, NO MIURMER NOTED. NO TELE. LUNGS CLEAR, RESP EASY, UNLABORED. ON R.A. BT X4 LAST BM NOT KNOWN BY PT. VOIDS BATHROOM, INDEPENDANT. ROOMS AND HALLS. PT HAS MISC BRUISES MID BACK BUMP AND LIGHT SCAB COVERED BY CDI MEPILEX. BED IN LOW POSITION, CALL LITE IN REACH, WALKS TO EDOUARD FOR NEEDS.
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
--- NOTE | 2020-05-21 15:51 | NUR ---
BY NAME OF NGUYỄN VELÁSQUEZ IN FROM [facility] TO ASSIST WITH GUARDIANSHIP.
--- NOTE | 2020-05-21 16:50 | NUR ---
PT MOSTLY PLEASANT TODAY. SOME AGITATION THIS AM. MEDICATED PER EMAR. DID TAKE NAP THIS AFT. HAS BEEN PLEASANT WITH ME SINCE AWAKING. SOMEONE DID COME SEE FOR GUARDIANSHIP THIS AFT. SEE PRIOR NOTE. NO NEW CONCERNS AT THIS TIME. BED IN LOW POSITION, CALL LITE IN REACH, IND IN RM.
--- NOTE | 2020-05-22 05:06 | NUR ---
SUMMARY PT HAD NO NEW ISSUES NOTED. PT HAS BEEN COOPERATIVE. PT HAS SLEPT FOR MOST OF SHIFT. PT CURRENTLY SLEEPING IN NO DISTRESS. CALL LIGHT IN REACH. BED ALARM ON.
--- NOTE | 2020-05-22 05:38 | NUR ---
0530 PT WOKE UP MORE UNSTEADY ON HER FEET. PT IS TRYING TO GET OUT OF BED AND IS NOT REDIRECTABLE. PT PLACED IN A GIL VEST FOR HER SAFETY. WCTM.
--- NOTE | 2020-05-22 13:27 | NUR ---
Agitation/Combative Patient wanting to leave hospital/unit requesting staff to call for taxi. When staff stated inability to reach taxi services, patient adamant about leaving. Patient unwilling to listen to reason, agitated, difficult to redirect, and combative. High fall risk. Refusing all PO meds/food/snacks stating "I don't want to eat anything right now!" Shouting and screaming, verbally and physically abusive. Patient calling staff names and threatening this RN saying "I'm going to slit your throat bitch." Called Dr. Mcneal for order of vest restraints, she declined. Suggested to give PRN meds to calm patient down. Patient refusing chocolate pudding. IM PRN meds given. founder and ceoALTON perera.
--- NOTE | 2020-05-22 19:28 | NUR ---
Shift Summary A/O to self. Patient had behaviors issues requiring PRN meds (see previous note), meds were effective at calming patient down. Awoken to eat dinner and agreeable to take evening meds. 1P SBA. Does not use call light appropriately. Continent. Denied pain. Bed/Chair alarm on for safety. Notified in report to oncoming RN to pass on that patient will require PRN Seroquel with AM meds so agitation is more controlled. Mepilex to back area changed today. Awaiting guardianship and placement.
--- NOTE | 2020-05-23 05:48 | NUR ---
SHIFT SUMMARY AOXSELF-UNABLE TO ASSESS FULL ORIENTATION FOR PT REFUSES TO ANSWER QUESTIONS. DOES NOT FOLLOW DIRECTIONS. IRRITABLE, IMPULSIVE, AGITATED. WOULD NOT TAKE ANY PO MEDS @HS, EVEN AFTER CRUSHING & OFFERING APPLESAUCE OR YOGURT, TOLD STAFF TO LEAVE HER ALONE. VSS. NO S/S OF PAIN, N/V OR DYSPNEA. AROUND 0300 PT WAS RESTLESS, IRRITABLE, ANGRY @STAFF YELLING/CALLING THEM NAMES & WAS WANTING TO GET UP & AMBULATE W/O ASSISTANCE. CRUSHED PRN SEROQUEL & MIXED c ICE CREAM- ONLY THING PT WAS AGREEABLE TO EAT. PT HAS BEEN RESTING COMFORTABLY IN BED SINCE MED TOOK AFFECT. INCONT/CONT OF URINE. AWAITING PLACEMENT. CALL LIGHT IN REACH & BED ALARM IN PLACE. WILL MONITOR.
--- NOTE | 2020-05-23 18:21 | NUR ---
SHIFT SUMMARY PT A/O X1, CONFUSED AND UNCOOPERATIVE. PT REFUSED MORNING MEDICATIONS AND DOES NOT ALLOW FOR A FULL ASSESSMENT. PT BECAME AGITATED THIS SHIFT AND WAS MEDICATED PER EMR. WAS ABLE TO GIVE PT HER EVENING SEROQUEL IN ICE CREAM. VSS.
--- NOTE | 2020-05-24 04:30 | NUR ---
SHIFT SUMMARY PT CONFUSED AND AGITATED MOST OF THE TIME. PT REFUSED HER NIGHT MEDS; ALTHOUGH I WAS ABLE TO GIVE HER SEROQUEL PRN FOR AGITATION WITH CHOCOLATE PUDDING. PT WILL OFTEN TRY TO GET OUT OF BED WITHOUT USING CALL LIGHT. BED ALARM IS ON, PT ON CAMERA AND BED IS IN THE LOWEST POSITION.
--- NOTE | 2020-05-24 18:26 | NUR ---
SHIFT SUMMARY PT A/O X1 BUT HER MOOD HAS GREATLY IMPROVED SINCE YESTERDAY. PT HAS BEEN PLEASANT TODAY AND HAS BEEN ABLE TO SIT IN THE EDOUARD AND COLOR WITH STAFF SUPERVISION. SHE HAS BEEN DOING THIS FOR THE MAJORITY OF THE DAY. SHE AMBULATES WITH A STAND BY ASSIST IN THE EDOUARD WAY. SHE STILL REFUSES MOST ASSESSMENT QUESTIONS AND MEDICATIONS, BUT HAS BEEN MUCH MORE PLEASANT. WAS ABLE TO TAKE PRN SEROQUEL X1 WELL HER EVENING SEROQUEL IN ICE CREAM. PT IS CURRENTLY IN THE EDOUARD UNDER STAFF SUPERVISION.
--- NOTE | 2020-05-24 21:58 | NUR ---
UNSTEADY ON FEET, NOT RECIRECTABLE WHEN ASKED TO CALL FOR ASSIST. WANDERING INTO OTHER PT ROOMS AND BECAME CROSS AND AGITATED WHEN STAFF TRIED TO INTERVENE. PLACED IN GIL VEST IN BED PER MD ORDER FOR SAFETY TO PT WHE IS/REMAINS HIGH FALL RISK AND OTHER MEANS NOT EFFECTIVE. CALL LIGHT IN REACH.
--- NOTE | 2020-05-25 04:34 | NUR ---
REFUSED VITALS PT REFUSED BOTH EVENING AND MORNING VITALS. YANKED HER ARM AWAY FROM ME AND ASKED ME TO GET OUT. PRIMARY RN NOTIFIED.
--- NOTE | 2020-05-25 05:19 | NUR ---
SHIFT SUMMARY AWAKE AT INTERVALS, REMAINS HIGH FALL RISK, NOT REDIRECTABLE, MULTIPLE ATTEMPTS TO AMBULATE UNSTEADILY INTO OTHER PTS ROOMS. PLACED IN GIL VEST FOR SAFETY PER MD ORDERS. CALL LIGHT IN REACH.
--- NOTE | 2020-05-25 18:35 | NUR ---
PATIENT IS ALERT. SHE SLEPT MOST OF THE DAY. WHEN SHE WOKE UP THIS AFTERNOON SHE BECAME AGITATED AND TRIED TO GET UP OUT OF BED AND THE RECLINER ON HER OWN MULTIPLE TIMES. THE GIL VEST WAS DC'D THIS MORNING AT 10 AM. A NEW ORDER FOR A GIL VEST WAS PLACED THIS AFTERNOON. THE PATIENT IS MORE WEAK TODAY. SHE IS A 2PA TO THE BSC. ATTENDS IN PLACE. PATIENT IS IN BED AT THIS TIME. WILL CONTINUE TO MONITOR
--- NOTE | 2020-05-25 21:27 | NUR ---
INTERMITTENT ANGER VOICED AT NURSE. ASSISTED IN REPOSITOINING. GIL VEST REMAINS IN PLACE, REMAINS HIGH FALL RISK, CONTINUES TO REFUSE TO REDIRECT AND ASK FOR ASSIST WHEN GETTING OUT OF BED. CALL LIGHT IN REACH
--- NOTE | 2020-05-26 04:29 | NUR ---
SHIFT SUMMARY AWAKE AT INTERVALS THROUGHOUT SHIFT. MULTIPLE ATTEMPTS TO GET OUT OF BED WITHOUT ASSIST, REMAINS HIGH FALL RISK. ASSISTED TO COMMODE (2) PEOPLE. X 1, BUT REMAINS SOMEWHAT DEFIANT TO SAFETY MEASURES. GIL VEST REMAINS IN PLACE. CALL LIGHT IN REACH. HOB ELEVATED FOR COMFORT
--- NOTE | 2020-05-26 17:40 | NUR ---
PATIENT IS ALERT AND ORIENTED TO SELF. PATIENT IS IN A GIL VEST RESTRAINT. SHE IS UP IN THE RECLINER. SHE TRIES TO GET OUT OF THE CHAIR ON HER OWN. NO COMPLAINTS OF PAIN. WILL CONTINUE TO MONITOR.
--- NOTE | 2020-05-26 19:10 | NUR ---
AWAKE, SITTING IN CHAIR AT BEDSIDE, GIL VEST INTACT, TRYING TO GET OUT OF CHAIR, REMAINS HIGH FALL RISK. CALL LIGHT IN REACH
--- NOTE | 2020-05-27 06:36 | NUR ---
SHIFT SUMMARY FEW ATTEMPTS TO GET OUT OF BED WITH GIL ON, QUITE ANGRY AND EVEN THREATENING TO SAFF WHEN TRYING TO REDIRECT HER FOR SAFETY. CURRENTLY RESTING QUIETLY. CALL LIGHT IN REACH
--- NOTE | 2020-05-27 17:29 | NUR ---
PT AOX1 WITH CONFUSION AND AGITATION. PT HAS BEEN COOPERATING MORE THE DAY PROGRESSED. PT IS NOW STARTING TO GET MORE PARANOID NOW THE SUN HAS GONE DOWN. PT THINKS SHE HAS CALLED [employer] FARMWORKER FOR TWO GIRLS SHE THINKS TOOK A COUPLE BABIES. PT IS STILL BEING NICE AND WAS GOOD TO TAKE TO RESTROOM. POSE IS STILL NEEDED PT TRYS TO GET OUT OF BED OR CHAIR OFTEN. PT HAS REFUSED MEDS ALL DAY AND WILL NOT BE TALED INTO TAKING THEM.
--- NOTE | 2020-05-27 19:20 | NUR ---
WAS ASSISTED TO BED BY AM ZOHAIB, VERBALLY ANGERED - THREATENS STAFF. TELLS NURSE TO "GET OUT" OF HER ROOM. GIL VEST IN PLACE. REMAINS HIGH FALL RISK. CALL LIGHT IN REACH
--- NOTE | 2020-05-28 06:20 | NUR ---
SHIFT SUMMARY AWAKE AT INTERVALS THROUGHOUT SHIFT. MULTIPLE ATTEMPTS TO GET OUT OF BED, EVEN WITH GIL VEST ON AND ESCALATED WITH AGITATION WHEN STAFF ATTEMPTED TO REDIREST HER FOR HER SAFETY. IM PRN ADMINISTERED BUT PT CONTINUED TO ESCALATE AND RESTRAINTS INCREASED TO 4 POINT SOFT RESTRAINTS FOR HER SAFETY PER CORRECTIVE THERAPIST ORDERS. CONTINUES TO REFUSE HER PO MEDS. FLUIDS OFFEREED AND INCONTINENCE CARE DONE. CALL LIGHT IN REACH. REST AND SAFEY ENCOURAGED.
--- NOTE | 2020-05-28 17:25 | NUR ---
PT HAS BEEN ALERT TO HERSELF, BUT CONTINUES WITH EXTREME CONFUSION AND CAN BECOME VERY PARANOID AND AT TIMES AGRESSIVE AND VERY IMPULSIVE. PT HAS BEEN UP TO CHAIR AND TO RESTOOM AND THEN NEEDS TO HAVE POSE SHE CONSTANTLY WANTS TO LEAVE OR MOVE IN ROOM AND IS AT RISK FOR SELF INJURY. PT HAS TAKEN MEDICATION FROM THIS BOWLING ALLEY MANAGER TODAY. PT HAS BEEN FIXATED ON HER TABLE FOR MOST OF THE DAY. CAMERAS ARE CLOSELY WATCHING HER AND CHAIR AND BED ALARM ARE IN CONSTANT USE. WILL CONTIUE TO MONITOR.
--- NOTE | 2020-05-29 04:30 | NUR ---
Alert to self only last night, Patient stood from chair when staff in room, and refused to allow us time to grab her FWW or GB. She consequently was extremly difficult with two assist to ambulate from chair to bathroom. Urine continues to have a strong odor, but is clear yellow and causes no discomfort to patient. Around 2200, patient was trying to swing legs out of bed because she thought she was going to smother "all the kittens" on the bed. The patient also verbalized that we were not nurses, this was a spaceship and we were crew. Patient remained in hope vest all night for her safety
--- NOTE | 2020-05-29 13:37 | NUR ---
MARSHA FERGUSON WAS DC'D AT 1200. SHE HAS NOT BEEN TRYING TO GET UP BY HERSELF AND SHE HAS BEEN CONFUSED BUT COOPERATIVE. I GAVE HER A PAIN PILL PER HER REQUEST AND SEROQUEL WITH HER AM MEDS. THEY WERE EFECTIVE. SHE HAS BEEN UP IN THE CHAIR FOR A FEW HRS AND IS EATING WELL.
--- NOTE | 2020-05-29 18:22 | NUR ---
RESTRAINT REMOVED AT NOON. SHE HAS BEEN PLEASANTLY CONFUSED. NO OBVIOUS HALLUCINATIONS TODAY BUT SHE DID MENTION SHE PUT THE CAT AND DOG IN BED WITH HER LAST NIGHT AND DOESN'T KNOW WHAT HAPPENED TO THEM. SHE HAS RECEIVED PRN SEROQUELS TODAY AND ADDED PO ATIVAN TO HER DINNERTIME SEROQUEL. SHE WALKS WITH 1 ASSIST BUT IS HUNCHED FORWARD A BIT. HER URINR OUTPUT IS VERY FOUL SMELLING.
--- NOTE | 2020-05-30 05:26 | NUR ---
PATIENT SLEPT WELL OVERNIGHT. VERY RELAXED. NO AGITATION OR NEED FOR RESTRAINTS. CONTINENT OF URINE OVERNIGHT .
--- NOTE | 2020-05-30 12:00 | NUR ---
SHE HAS HAD A VERY BUSY MORNING. AFTER SLEEPING WELL LAST NIGHT SHE HAS BEEN AGITATED AND PARANOID FOR US BUT COOPERATIVE. SHE DIDN'T TRUST THE MALE DIRECTOR OPERATIONS BUT HAS BEEN MORE PLEASANT WITH THE FEMALE STAFF. SHE EATS WELL. SHE HAS HAD A LOT OF URINARY INCONTINENCE TODAY. SHE WANTS TO LEAVE. I DIALED HER SON ONCE FOR HER BUT HE WAS NOT AVAILABLE.
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
--- NOTE | 2020-05-30 17:41 | NUR ---
SHE HAS HAD SOME AGITATION ALL DAY BUT DID NOT REQUIRE A SHOT OR CODE NUÑEZ OR RESTRAINTS. SHE HAD 2 PRN DOSES OF SEROQUEL AND JUST TOOK HER DINNERTIME DOSE OF SEROQUEL AND ATIVAN. YESTERDAY I DID NOT WITNESS ANY VISUAL HALLUCINATIONS BUT TODAY I DID. IT WAS ALL ABOUT A MALE KITTEN AND KEEPING IT WARM. SHE SHOWED PARANOIA BY STATING THAT CERTAIN PEOPLE WERE KEEPING HER HERE WHEN SHE WAS PERFECTLY OK TO FUNCTION ON HER OWN. OF COURSE WE ARE WAITING FOR GUARDIANSHIP AND PLACEMENT. SHE SPENT A COUPLE OF HRS SITTING AT THE END OF THE EDOUARD. SHE WALKED INDEPENDENTLY TODAY WITH AND WITHOUT HER WALKER, BUT ALWAYS WITH SUPERVISION.
--- NOTE | 2020-05-30 19:15 | NUR ---
ASSUMED CARE RECEIVED REPORT FROM ALTON WALLACE. PT SITTING UP IN CHAIR, ALARM ON. NO ACUTE NEEDS OR DISTRESS NOTED, RESPS E/U. DENIES NEEDS AT THIS TIME. CALL LIGHT, POSSESSIONS IN REACH. CONTINUE TO MONITOR.
--- NOTE | 2020-05-31 05:08 | NUR ---
SHIFT SUMMARY PT RESTING IN BED, NO S/S ACUTE DISTRESS NOTED, RESPS E/U. WAS MONITORED EVERY 1-2 HOURS WITH NEEDS MET. VS REVIEWED, WNL; AFEBRILE. REFUSED 0600 MEDS, BUT ALLOWED VS TO BE TAKEN. HAS BEEN PLEASANT AND COOPERATIVE WITH CARES T/O MUCH OF THE NIGHT, SOMEWHAT AGITATED TOWARDS STAFF THIS AM, BUT RE-DIRECTABLE. UP TO BED/CHAIR WITH 1 PERSON MODERATE ASSIST. NO ACUTE NEEDS ASSESSED AT THIS TIME. CALL LIGHT, POSSESSIONS IN REACH, CHAIR ALARM ON. WILL CONTINUE TO MONITOR UNTIL REPORT GIVEN TO DAY RN.
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
--- NOTE | 2020-05-31 19:15 | NUR ---
ASSUMED CARE RECEIVED REPORT FROM ALTON ADKINS. PT SITTING UP IN CHAIR, GIL VEST IN PLACE. PT APPEARS AGITATED, USING COLORFUL LANGUAGE TOWARD STAFF, STATING "GET OUT OF MY ROOM." NO ACUTE NEEDS ASSESSED AT THIS TIME, ENVIRONMENT FREE FROM HARMFUL OBJECTS, CHAIR ALARM ON. CONTINUE TO MONITOR.
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
--- NOTE | 2020-05-31 21:58 | NUR ---
THIS RN CALLED SARAH ROJAS AND Keyanna DIAZ TO PT ROOM TO ASSIST THIS RN WITH GETTING PT TO BED AND MEDICATED FOR AGITATION. SARAH ROJAS, RN, PHONED SECURITY TO ASSIST. PT CONTINUES TO BE VISIBLY AGITATED, USING COLORFUL LANGUAGE TOWARDS STAFF. 2 SECURITY OFFICERS ASSISTED PT TO BED AND HELD PT STILL WHILE THIS RN, SARAH RN, AND KULWINDER RN MEDICATED PT FOR AGITATION PER EMAR. PT APPEARED TO TOLERATE WELL. GIL VEST IN PLACE. PT SITUATED IN BED. CALL LIGHT, POSSESSIONS IN REACH, BED ALARM ON. WILL CONTINUE TO ASSESS PT'S BEHAVIOR T/O NIGHT.
--- NOTE | 2020-06-01 05:47 | NUR ---
SHIFT SUMMARY PT ASLEEP, NO ACUTE DISTRESS NOTED, RESPS E/U. WAS MONITORED EVERY 1-2 HOURS WITH NEEDS MET. VS REVIEWED, WNL. DROWSY BUT COOPERATIVE WITH CARES THIS AM; REFUSED 0600 MEDS. GIL VEST REMAINS IN PLACE. DENIES PAIN OR NEEDS AT THIS TIME. POSSESSIONS IN REACH, BED IN LOW POSITION WITH ALARMS ON. WILL CONTINUE TO MONITOR UNTIL REPORT GIVEN TO DAY RN.
--- NOTE | 2020-06-01 18:06 | NUR ---
SHIFT SUMMARY PT SLEPT MOST OF MORNING, NOT WAKING FOR BREAKFAST. WOKE ONLY VERY BRIEFLY FOR CARE UNTIL JUST BEFORE LUNCH. PT ANS YES TO GETTING UP TO CHAIR. PT ASSISTED TO CHAIR AND HAS REMAINED THERE TO PRESENT. PT HAS BEEN CALMER TODAY, BUT REMAINS VERY DELUSIONAL WITH VISUAL HALLUCINATIONS. PT FEEDING HERSELF LUNCH AND DINNER, BUT NOT DOING WELL TODAY YESTERDAY. PT DID BETTER WITH FEEDING ASSIST TODAY. ABLE TO GIVEN MEDS WITH FOOD, OTHERWISE PT WOULD NOT TAKE THEM. CHAIR AND BED ALARM ON FOR SAFETY. CALL LT IN REACH.
--- NOTE | 2020-06-01 19:15 | NUR ---
ASSUMED CARE RECEIVED REPORT FROM ALTON ADKINS. PT ASLEEP IN RECLINER, NO S/S ACUTE DISTRESS NOTED, RESPS E/U. CHAIR ALARM ON, GIL VEST IN PLACE. CALL LIGHT, POSSESSIONS IN REACH, CONTINUE TO MONITOR.
--- NOTE | 2020-06-02 04:24 | NUR ---
SHIFT SUMMARY PT ASLEEP, NO ACUTE NEEDS OR DISTRESS NOTED AT THIS TIME. WAS SEDATED T/O MUCH OF THE NIGHT, BEGINNING TO WAKE UP EARLY THIS AM. MINOR AGITATION NOTED, ATTEMPTED TO SWING FISTS AT THIS RN, VERBALLY DE-ESCALATED PT, REMINDED THAT STAFF IS ONLY TRYING TO HELP HER; PT COOPERATIVE WITH CARES. DENIES PAIN. CALL LIGHT AND POSSESSIONS IN REACH, BED IN LOW POSITION WITH ALARMS ON. CONTINUE TO MONITOR UNTIL REPORT GIVEN TO DAY RN.
--- NOTE | 2020-06-02 17:48 | NUR ---
SHIFT SUMMARY PT IS AO TO SELF. PT DENIES PAIN, N/V, SOB. PT IS A ONE PERSON ASSIST. PT GIL LARSON DC'D AT APPROXIMATELY 1600 TODAY. PT STILL GETS UP WITHOUT ASSISTANCE, BUT IS PLEASANT THIS MARISEL. NO ACUTE CHANGES THIS SHIFT. PT HAS A GOOD APPETITE. PT IS CURRENTLY IN CHAIR, ALARM ON, CALL LIGHT IN REACH.
--- NOTE | 2020-06-03 04:20 | NUR ---
SHIFT SUMMARY ASSUMED CARE OF PT AT 1900. PT IS A/OX1. PT WAS TALKING TO SELF AND HER SENTENCES WERE JUST JUMBLED WORDS. HERT SOUNDS REGULAR, LUNG SOUNDS CLEAR. PT WAS A 2P ASSIST TO BED, PT ATTEMPTED TO GET OUT OF BED FOR ABOUT 1 HOUR BUT THEN WENT TO SLEEP. PT THEN SLEPT T/O THE NIGHT. PT WAS INCONTINENT T/O THE NIGHT. CALL LIGHT IN REACH, BED IN LOWEST POSTION, BED ALARM ON, CAMERA MONITORING.
--- NOTE | 2020-06-03 18:12 | NUR ---
SHIFT SUMMARY PATIENT DENIES PAIN, NAUSEA, AND SHORTNESS OF BREATH. PATIENT SOMEWHAT AGITATED IN AM AND REFUSING MORNING MEDICATIONS. REDIRECTABLE AND APPROPRIATE UNTIL LATE AFTERNOON. PATIENT CRYING AND WITHDRAWN AFTER VISIT WITH APS AND PROSPECTIVE GUARDIAN, STATING "SHE HAS NOTHING LEFT". PATIENT REFUSING AFTERNOON MEDICATIONS AND BECOMING AGITATED. PULLING CORDS AND EQUIPMENT OFF ZAMUDIO. COMBATIVE AND CURSING AT STAFF. GIVEN IM BENADRYL/HALDOL/ATIVAN. PATIENT RESTING SHORTLY AFTER.
--- NOTE | 2020-06-04 06:43 | NUR ---
SHIFT SUMMARY PT IS AN 84 Y/O FEMALE ADMITTED FOR SEPSIS R/T UTI, CURRENTLY AWAITING PLACEMENT. PT IS A&O X 0, AGITATED AND AGRESSIVE AT TIMES WITH CARE. PT SLEPT WELL THROUGH THE NIGHT, GOT UP ONCE TO BSC AND BACK TO BED WITH NO TROUBLE. PT REFUSED ALL MEDICATIONS. VITAL SIGNS STABLE. NO C/O PAIN, NAUSEA OR SOB. NO ACUTE CHANGES IN PT CONDITION NOTED DURING THE NIGHT. WILL CONTINUE TO MONITOR AND TREAT PER EMAR UNTIL HAND OFF TO DAY SHIFT RN.
--- NOTE | 2020-06-04 18:40 | NUR ---
SHIFT SUMMARY PATIENT DENIES PAIN, NAUSEA, AND SHORTNESS OF BREATH. PATIENT AGITATED AND WANDERING THIS MORNING, REQUIRED FREQUENT REDIRECTION. PATIENT COOPERATIVE WITH CARE AND TOOK HER MEDICATION THIS SHIFT. UP SBA TO BR.
--- NOTE | 2020-06-05 01:00 | NUR ---
06/04/20 1950 PT RESTING COMFORTABLY IN BEDSIDE CHAIR; CHAIR ALARM APPLIED. 06/05/20 0100 RESTING COMFORTABLY IN BED; CHEERFUL.
--- NOTE | 2020-06-05 03:31 | NUR ---
SHIFT SUMMARY: 84 Y/O FEMALE SLEPT QUIETLY ALL SHIFT IN BED AFTER TAKING H.S. MEDS LAST NIGHT; ALERT AND ORIENTED X 1 AND ABLE TO FOLLOW SIMPLE VERBAL COMMANDS; PT HAD NO OBNOXIOUS BEHAVIOR NOTED THIS SHIFT; PT ALARM APPLIED FOR SAFETY, BED LOW POSITION WITH CALL LIGHT AT SIDE.
--- NOTE | 2020-06-05 14:27 | NUR ---
CONCERN FOR DEHYDRATION PT HAS VOIDED VERY SMALL AMOUNTS (50MLS) TODAY WITH A VERY FOUL SMELL TO THE URINE. ALMOST STOOL SMELLING. PT HAS HAD POOR PO INTAKE TODAY. CONCERNS RELAYED TO MD. RENAL PANEL TO BE COLLECTED & RESULTS CALLED TO MD WHEN AVAILABLE. WILL CONTINUE TO ENCOURGE PO INTAKE.
[2020-06-05 15:34] LABS: Albumin, Blood 3.6 g/dL (3.4-5.0); Anion Gap 8 mmol/L (6-16); Blood Urea Nitrogen 24 mg/dL (8-24); Bun/Creatinine Ratio 45.3 (12.0-20.0); CO2, Blood 26 mmol/L (21-32); Chloride, Blood 106 mmol/L (98-108); Creatinine, Blood 0.53 mg/dL (0.40-1.00); Glomerular Filtration Rate >60 (60-); Glucose, Blood 110 mg/dL (70-99); Phosphorus, Blood 3.6 mg/dL (2.5-4.9); Potassium, Blood 3.7 mmol/L (3.5-5.5); Sodium, Blood 140 mmol/L (136-145)
--- NOTE | 2020-06-05 17:21 | NUR ---
SHIFT SUMMARY PT HAD PLEASANT & COOPERATIVE MORNING. MORE AGITATED & RESTLESS THIS AFTERNOON/EVENING. PRN SEROQUEL GIVEN ONCE THIS SHIFT. PT COMPLIANT WITH TAKING MEDS THIS SHIFT IN [place] PUDDING. PT HAS HAD FREQUENT SMALL VOIDS T/O DAY. INCREASING IN FREQUENCY THIS AFTERNOON. VERY FOUL SMELLING URINE. SEE PREVIOUS NOTE. PO FLUIDS ENCOURAGED T/O SHIFT. VS REVIEWED. NO OTHER ACUTE CHANGES IN ASSESSMENT AT THIS TIME.
--- NOTE | 2020-06-05 20:48 | NUR ---
2000 PT RESTING COMFORTABLY IN BED; CHEERFUL; ALERT AND ORIENTED X 2, ABLE TO FOLLOW SIMPLE VERBAL COMMANDS; NO AGGRESSIVE BEHAVIOR NOTED AT THIS TIME; BED ALARM APPLIED FOR SAFETY.
--- NOTE | 2020-06-06 03:19 | NUR ---
SHIFT SUMMARY: 84 Y/O FEMALE RESTED QUIETLY ALL SHIFT; PT STILL ALERT AND ORIENTED X 1 AND REQUIRES REORIENTATION AND REDIRECTION; PT ABLE TO STAND AND PIVOT TO BSC WITH MUCH DIFFICULTY SHE IS DECONDITIONED AND REQUIRES MORE PT/OT; PT UNABLE TO AMBULATE ANY DISTANCE DURING THIS SHIFT; PT SLEPT MOST SHIFT IN BED; BED ALARM APPLIED, BED LOW POSITION WITH CALL LIGHT AT SIDE.
--- NOTE | 2020-06-06 07:28 | NUR ---
GIL VEST PLACED PT AGITATED THIS AM. WALKING AROUND IN ROOM. REFUSING ASSISTANCE AND THREATENING STAFF. PT IS A HIGH FALL RISK AND WOBBLY ON FEET. GIL PLACED TO PT ONCE SHE SAT DOWN IN A CHAIR AT 0700. DR. HURTADO NOTIFIED AND ORDER FOR GIL WAS PLACED AT 0727. PT MEDICATED WITH SEROQUEL ALSO.
--- NOTE | 2020-06-06 17:31 | NUR ---
SHIFT SUMMARY PT PLACED IN RESTRAINTS AT 0700 THIS MORNING. ORDER RECEIVED FROM DR. HURTADO FOR THIS AT 0727. PT TOLERATED RESTRAINTS WELL. FIDDLING WITH ITEMS ON BEDSIDE TABLE AND TUGGING ON RESTRAINT. PT WAS TAKEN OUT OF RESTRAINTS AT 1400 TODAY TO SEE HOW PT WOULD DO. SEE EMAR FOR MEDS GIVEN. PT BECAME MORE AGITATED AFTER 1600 TODAY & STARTED HITTING STAFF AND THROWING THINGS. PT UNRESPONSIVE TO REDIRECTION & REORIENTATION. B52 GIVEN AT 1630. PT NOT SLEEPING IN BED. BREATHING EASY AND APPEARS COMFORTABLE. NAIMA CARE COMPLETED AT THIS TIME. DR. HURTADO NOTIFIED THAT PT HAS A YEASTY RASH TO THE R ABD FOLD. ORDER FOR NYSTATIN OBTAINED AT THIS TIME. VS REVIEWED. BED ALARM ON. CAMERA MONITORS IN PLACE.
--- NOTE | 2020-06-06 21:18 | NUR ---
2000 84 Y/O FEMALE RESTING QUIETLY IN BED; ALERT AND ORIENTED X 1; BED ALARM APPLIED FOR SAFETY.
--- NOTE | 2020-06-07 03:47 | NUR ---
SHIFT SUMMARY; 84 Y/O OBESE FEMALE SLEPT QUIETLY ALL SHIFT AFTER RECEIVING B52 MEDICATION INJECTION PRIOR TO START OF THIS SHIFT; PT ALERT PERSON ONLY; PT IS ON REMOTE CAMERA OBSERVAION THIS SHIFT; DENIES PAIN OR NAUSEA; BED ALARM APPLIED FOR SAFETY, BED LOW POSITION WITH CALL LIGHT AT SIDE.
--- NOTE | 2020-06-07 19:02 | NUR ---
SHIFT SUMMARY PT SLEEPING MOST OF THE DAY IN BED WITH OCC ATTEMPTS TO CLIMB OOB WHEN INCONTINENT OR NEEDING TO VOID BUT THEN GOING BACK TO SLEEP. WOKE UP APPROX 1700 AND BEGAN TRYING TO WALK AROUND IN ROOM. SAID SHE NEEDED TO GO TO THE BATHROOM BUT WAS DIFFICULT TO DIRECT INTO BATHROOM. SLOW TO AMBULATE USING FWW. AFTERWARD SAT IN CHAIR BUT WAS UNCOOPERATIVE WITH CARE AND REFUSING TO TAKE 1700 MEDS. AFTER BEING LEFT ALONE FOR APPROX 45 MINUTES AND DINNER WAS PLACED IN FRONT OF HER SHE DECIDED TO LAY BACK DOWN. WAS RUBBING HER KNEES AND OFFERED A PAIN PILL. ASSISTED BACK TO BED AND MEDICATED FOR PAIN AND 1700 MEDS. ASKED FOR CHICKEN THAN AND HAS BEEN MORE COOPERATIVE TO NOW.
--- NOTE | 2020-06-08 04:21 | NUR ---
PATIENT HAS BEEN TIRED AND SLEEPING FOR THE ENTIRETY OF THE SHIFT. SHE WILL AWAKEN TO VERBAL STIMULI BUT IMMEDIATELY GO BACK TO SLEEP. WOULD NOT WAKE UP LONG ENOUGH TO TAKE HS MEDS. NO INAPPROPRIATE BEHAVIORS OR ATTEMPTING TO GET OUT OF BED UNASSISTED. NO ACUTE CHANGES TO REPORT ON AT THIS TIME. CALL LIGHT WITHIN REACH.
--- NOTE | 2020-06-08 10:41 | NUR ---
PT REFUSING TO TAKE ANY MEDICATIONS OR ALLOW ASSESSMENT THIS MORNING. IS REDIRECTABLE AT TIMES AND CURRENTLY NOT BEING AGGRESSIVE TOWARD STAFF BUT NO ALLOWING ASSISTANCE WITH PERSONAL CARE LIKE HAIR COMBING AND FOOD OFFERING.
--- NOTE | 2020-06-08 17:46 | NUR ---
SHIFT SUMMARY PT DOZING THIS MORNING. STARTED GETTING UP AND WALKING AROUND FREQUENTLY AFTER LUNCH. HAS BEEN IRRITABLE, TELLING STAFF TO GET THE BELT OFF OF HER, TO LEAVE HER THE HELL ALONE, ETC. HAS BEEN MOSTLY DIRECTABLE WHEN WALKING IN HALLWAY, STAYING OUT OF OTHER PT ROOMS WHEN TOLD TO DO SO. HAS SAT IN CHAIR IN HALLWAY THIS EVENING AND HAS BEEN TALKING ABOUT THE ANIMALS SHE IS SEEING. 1700 MEDS CRUSHED AND PUT IN VANILLA PODDING. PT ATE MOST OF PUDDING. WILL MONITER FOR ESCALATION IN BEHAVIOR AND TREAT ACCORDINGLY.
--- NOTE | 2020-06-08 23:33 | NUR ---
PATIENT HAS BEEN IN AND OUT OF BED SINCE THE START OF THE SHIFT, BECOMING MORE AND MORE AGGITATED EACH TIME STAFF HAD TO INTERVENE. PATIENT WAS SLOWLY RAMPING UPWARDS. B-52 ADMINISTERED TO AVOID PATIENT FROM BECOMING COMPLETELY OUT OF CONTROL. PATIENT IS NOW SLEEPING IN BED.
--- NOTE | 2020-06-09 03:35 | NUR ---
PATIENT FINALLY SETTLED DOWN AND WAS ABLE TO GET SOME SLEEP ONCE GIVEN THE B52. PATIENT HAS SEEMED TO NEED THE MEDICATION COMBO DAILY. ASIDE FROM THAT THERE HAVE BEEN NO ACUTE CHANGES NOTED OR REPORTED THIS SHIFT. CALL LIGHT WITHIN REACH.
[2020-06-09 12:41] LABS: Appearance, Urine Cloudy (Clear); Bilirubin, Urine Neg (Neg); Blood, Urine 2+ (Neg); Color, Urine Yellow (P-Yellow); Glucose Qualitative, Urine Neg (Neg); Ketones, Urine 1+ (Neg); Leukocyte Esterase, Urine 3+ (Neg); Nitrite, Urine Pos (Neg); Protein, Urine 2+ (Neg); Urobilinogen, Urine 3+ (Normal)
[2020-06-09 12:49] LABS: White Blood Cells, Urine TNTC /hpf (0-5)
[2020-06-09 12:50] LABS: Bacteria Many /hpf; Squamous Epithelial Cells Many /hpf (Few)
--- NOTE | 2020-06-09 16:24 | NUR ---
Requested by Demar Ryder CM RN to assist with POLST form. Called [place] [facility] and Dr. Majano's office, her PCP, and neither have any POLST on file. Son is not returning calls. Pt is confused and unable to make decisions re: her care and goals of care. Will likely need to wait for a guardian to be in place before a code status can be addressed. Reviewed chart from admission in 03/2017. Pt was a DNR/DNI at that time according to the H&P, however there was no one identified as the alternate decision maker at that time and that is the only reference to DNR/DNI that this jingle writer could find during a chart review.
--- NOTE | 2020-06-09 19:18 | NUR ---
SHIFT SUMMARY: NO ACUTE CHANGES TO REPORT THIS SHIFT. PT ALERT; ORIENTED TO SELF; COOPERATIVE WITH CARE. MEDICATED FOR AGITATION PER EMAR. CAMERA ON FOR SAFETY. AWAITING PLACEMENT. REPORT GIVEN TO ONCOMING RN.
--- NOTE | 2020-06-09 20:18 | NUR ---
ASSUMED CARE. AOX1, TURNED PARTIALLY SIDEWAYS IN BED. NO CLOTHING ON, TALKING TO SELF AND OTHER IN THE ROOM. VISUAL AND AUDIABLE HULLUCINATIONS. DENIED ANY NEEDS OR CONCERNS. ATTENDS CHANGED REDNESS IN GROIN, ANTIFUNGAL POWDER APPLIED. TOOK PM MEDS IN APPLESAUCE. BOOSTED UP IN BED. REFUSED TO PUT GOWN ON. BED ALARM IS ON, CALL LIGHT IS IN REACH.
--- NOTE | 2020-06-10 05:31 | NUR ---
SHIFT SUMMARY: AOX1, VISUAL AND AUDITORY HULLUCINATIONS, FOLLOWS DIRECTIONS, PLEASANT AND COOPERATIVE. NO PAIN OR DISCOMFORT. INCONTIENT OF BOWEL AND STOOL. MILD REDNESS TO GROIN IMPROVING. TOOK MEDS IN APPLESAUCE LAST NIGHT AFTER SOME CONVINCING. REFUSED THIS AM THYROID MED. VS WNL, AFEBRILE. AWAITING PLACEMENT. NO ACUTE CHANGES TO NOTE. CALL LIGHT IN REACH, BED ALARM ON.
--- NOTE | 2020-06-10 19:09 | NUR ---
SHIFT SUMMARY: NO ACUTE CHANGES TO REPORT THIS SHIFT. PT ALERT; IRRITABLE; OCC UNCOOPERATIVE WITH CARE. PSYCH MEDS PER EMAR. IV ACCESS PLACED THIS SHIFT; IV ABX FOR UTI. REPORT GIVEN TO ONCOMING RN.
--- NOTE | 2020-06-10 19:53 | NUR ---
ASSUMED CARE. NO ACUTE CHANGES TODAY FOR DESI. CONFUSED, SITTING WATCHING TV. EYES CLOSED MOST OF THE TIME. ORIENTED TO SELF. ATTENDS DRY. BED ALARM IS ON. VS WNL. WILL CONTINUE TO MONITOR.
--- NOTE | 2020-06-11 05:54 | NUR ---
SHIFT SUMMARY; NO CHANGE IN MENTAL STATUS. AWAKE ALL NIGHT TALKING TO SELF AND FIGITING WITH BLANKETS AND UN-WRAPPING IV WRAP. VS WNL, AFEBRILE. KEPT IV IN. SHE FELL ASLEEP AROUND 5 AM DID NOT GIVE THYROID MEDICATION DUE TO SHE JUST FELL ASLEEP. STILL AWAITING PLACEMENT. BED ALARM ON, CALL LIGHT IN REACH.
--- NOTE | 2020-06-11 15:40 | NUR ---
SUMMARY PT CONTINUES CONFUSED/DISORIENTED, SHE HAS PERIODS OF CALM FOLLOWED BY PERIODS OF RESTLESSNESS. @ X'S ATTEMPTS TO GET UP W/O ASSIST REQUIRES BED ALARM & CAMERA MX. COURT [employer] ARCHITECT IN TODAY TO DELIVER GUARDIANSHIP PAPERS ACCOMPANIED BY SOCIAL STUDIES TEACHER. PT HAS BECOME MORE RESTLESS DAY PROGRESSED, DISROBING, ATTEMPTING OOB, STATING SHE IS GOING HOME, REQUIRE REORIENT/REASSURANCE HOWEVER VERY FORGETFUL. SHE HAS NOT HAD BM IN MULT DAYS, GAVE PRN MIRALAX THIS AM HOWEVER W/O RESULTS, DR KAUR NOTIFIED. DX UTI, SHE IS RECIEVING IV ROCEPHIN QD. INCONT OF URINE, IN ATTENDS. VSS/AFEBRILE.
--- NOTE | 2020-06-11 18:02 | NUR ---
PT BECOME MORE & MORE RESTLESS, AGITATED AFTERNOON CONTINUED DIFFICULT TO REDIRECT CONSTANTLY TRYING TO GET UP, CONFUSED. @ 1700 SHE REFUSE ORAL SEROQUEL, ATIVAN, XARELTO. PIN WORKER CALLED TO ATTEMPT TO GIVE HER ORAL MEDS HOWEVER SHE BECOME MORE & MORE AGITATED. MULT ATTEMPTS TO CALM HER, REASSURE HER UNSUCCESSFUL. INCREASINGLY HIGH FALL RISK, SHE BECOME COMBATIVE w ATTEMPTS TO KEEP HER FROM GETTING UP & WANDERING. REQUIRE MULT STAFF FOR REDIRECT. PIN WORKER PREPARE HALDOL, BENADRYL, ATIVAN--GIVEN IM. REQUIRE 2 PERSON @ BEDSIDE UNTIL EFFECTIVE. SHE CONTINUES VERBALLY ABUSIVE, FOUL LANGUAGE, THREATENING. WILL CONTINUE TO MX & ATTEMPT TO CALM/REASSURE.
--- NOTE | 2020-06-12 05:05 | NUR ---
SHIFT SUMMARY- PT. CONFUSED T/O THE NIGHT. CALM MOST OF THE SHIFT W/INTERMITTENT RESTLESSNESS. ASSISTED TO BATHROOM WITH WALKER AND GAIT BELT, TOLERATED WELL BUT VERY WEAK. INCONT OF URINE DURING THE NIGHT, ATTENDS IN PLACE. PT. REFUSED TO KEEP HOSPITAL GOWN ON, WOULD ONLY ALLOW TO BE COVERED WITH BLANKETS. NO COMPLAINTS OF PAIN OR DISCOMFORT. SLEPT ON/OFF, NO APPARENT DISTRESS NOTED. CALL LIGHT WITHIN REACH, SIDE RAILS UPX3, AND BED ALARM ON FOR SAFETY. WILL CONT TO MONITOR.
--- NOTE | 2020-06-12 11:35 | NUR ---
AM ASSESSMENT PT CONFUSED, DISROBED, ATTEMPTING OOB W/O ASSIST. DIFFICULT TO REDIRECT, REORIENT--UNSUCCESSFUL. SHE REFUSES ALL ORAL MEDICATIONS HOWEVER 2ND RN ABLE TO COAX HER TO TAKE SEROQUEL, APPROX 1/2 OF 50MG TAB CRUSHED IN APPLESAUCE. SEEMS EFFECTIVE OR PT HAS TIRED OUT. SHE HAS BEEN MORE COOPERATIVE, SHE SAT UP IN CHAIR & ATE PORTION OF HER BF, SHE HAS ACCEPTED OFFERS OF FLUIDS, SHE HAS ALLOWED US TO PLACE HER IN A HOSP GOWN & HAS NOT PULLED IT OFF SO FAR. SHE IS HOWEVER VERY TIRED, ASSISTED HER TO BED APPROX 1045, SLEEPING @ THIS TIME.
--- NOTE | 2020-06-12 16:41 | NUR ---
SUMMARY PT HAS BEEN CALMER T/O DAY, W/O NEGATIVE BEHAVIOR OUTBURSTS. EARLY THIS AM SHE WAS SOMEWHAT SUSPICIOUS/DEFENSIVE HOWEVER THIS HAS IMPROVED T/O DAY. SHE HAS HAD LESS ATTEMPTS TO GET UP W/O ASSIST HOWEVER DOES NOT USE CALL SYSTEM, CONTINUES HIGH FALL RISK, CONTINUES ON CAMERA MX. SHE IS CONFUSED, DISROBES @ X'S, FREQUENT MX & REDIRECT. NEEDS ASSIST WITH FLUIDS/MEALS & ENCOURAGEMENT TO EAT & STAY HYDRATED. SHE SAT UP IN CHAIR FOR LUNCH, ATE MOST OF HER SANDWICH. THIS AFTERNOON SHE WAS COMPLIANT w MENTAL HEALTH MEDS, TOOK CRUSHED IN AVE PUDDING. SHE HAD LRG SOFT BM THIS AM, CONSTIPATION RELIEVED. VSS/AFEBRILE.
--- NOTE | 2020-06-12 21:01 | NUR ---
PT REFUSED TO HAVE VITALS TAKEN THIS PM.
--- NOTE | 2020-06-13 04:35 | NUR ---
SHIFT SUMMARY- NO ACUTE EVENTS OVERNIGHT. PT. HAS BEEN CALM AND ASLEEP MOST OF THE NIGHT, NO APPARENT DISTRESS NOTED. ATTENDS IN PLACE, REPOSITIONED FOR COMFORT AND PRN. NO COMPLAINTS DURING THE NIGHT, VSS. CALL LIGHT WITHIN REACH, SIDE RAILS UPX3, AND BED ALARM ON FOR SAFETY. WILL CONT TO MONITOR.
--- NOTE | 2020-06-13 04:59 | NUR ---
PT REFUSAL PT REFUSED TO HAVE VITALS TAKEN THIS AM, RN WAS NOTIFIED.
--- NOTE | 2020-06-13 18:16 | NUR ---
SHIFT SUMMARY PT IS AO TO SELF. PT IS PLEASANT TODAY, BUT REFUSED AM MEDICATIONS AND AM BLOOD DRAW-PHYSICIAN OKAY'D CANCELLATION OF CBC AND METABOLIC PANEL FOR TODAY. PT DENIES PAIN, N/V, SOB. PT WEAK TODAY. PT [facility] TEJ RIVERA IN FOR GUARDIANSHIP TODAY AND MET WITH PT. PT HAS A GOOD APPETITE. PT CONTINUES TO DISROBE, BUT SEEMS COMFORTABLE. PT IS IN BED, CALL LIGHT IN REACH, BED IN LOW POSITION WITH ALARM ON.
--- NOTE | 2020-06-14 03:51 | NUR ---
CORPORATE DEVELOPMENT MANAGER SUMMARY A/O TO SELF ONLY. MUMBLES INCOHERENTLY AT TIMES. DROWSY T/O NIGHT BUT COOPERATIVE WITH MOST CARE. PT SPIT OUT 2100 MEDICATIONS. DENIES PAIN OR SOB. VSS, NO ACUTE CHANGES AT THIS TIME. BED IN LOWEST POSITION, ALARM ON, CALL LIGHT WITHIN REACH. REMOTE VIDEO MONITORING VERIFIED. WILL CONTINUE TO MONITOR AND REPORT TO ONCOMING RN.
--- NOTE | 2020-06-14 19:16 | NUR ---
SHIFT SUMMARY TEJ WAS SETTING OFF HER BED ALARM OFF QUITE A BIT THIS AFTERNOON, PUT HER IN HALLWAY WITH BEDSIDE TABLE AND SHE COLORED MOST OF THE AFTERNOON. SBA TO BR, CONTINENT/INCONT. DENIED PAIN. R RIB AREA PROTRUSION SORE, TOLD DR WALKER, HE IS AWARE, MEPILEX IN PLACE TO PROTECT SKIN. BED ALARM ON, CALL LIGHT IN REACH, REPORT GIVEN TO NIGHT NURSE
--- NOTE | 2020-06-15 03:46 | NUR ---
FLIGHT ENGINEER PERFORMANCE QUALIFIED SUMMARY A/O TO SELF ONLY. REFUSED 2100 MEDS WELL ASSESSMENT. APPEARED TO SLEEP T/O THE NIGHT. INTERMITTENTLY WILL AWAKEN AND MUMBLE INCOHERENTLY. REMOTE VIDEO MONITOR VERIFIED. DENIES PAIN OR SOB. VSS, NO ACUTE CHANGES AT THIS TIME. BED IN LOWEST POSITION, ALARM ON, CALL LIGHT WITHIN REACH. WILL CONTINUE TO MONITOR AND REPORT TO ONCOMING RN.
--- NOTE | 2020-06-15 14:07 | NUR ---
PATIENT HAS SLOWLY BEEN RAMPING UP SINCE WAKING UP THIS MORNING. SHE WAS BECOMING NON-REDIRECTABLE AND REMOVING HER CLOTHES, CONSTANTLY MOVING FROM CHAIR TO BED THEN BACK AGAIN, AND NOT BEING [id number] WITH STAFF. B-52 ADMINISTERED. WILL WATCH FOR EFFECTIVENESS.
--- NOTE | 2020-06-15 16:39 | NUR ---
PATIENT HAD A TYPICAL DAY FOR HERSELF, BECOMING INCREASINGLY AGGITATED AND NON-REDIRECTABLE THE DAY MOVED ON. IT IS VERY DIFFICULT TO GET THE PATIENT TO TAKE ANY PO MEDICATIONS AND IS LIKELY THE REASON SHE ENDS UP NEEDING A B-52 SO FREQUENTLY, BECAUSE THE OTHER MEDICATIONS TO HELP WITH HER MOOD AND STABILITY ARE VERY DIFFICULT TO GET HER TO ACTUALLY TAKE. THE PATIENTS VITALS ARE STABLE. SHE HAS NOT HAD ANY ACUTE CHANGES THIS SHIFT. PATIENT CONTINUES TO AWAIT PLACEMENT FOR DISCHARGE. CALL LIGHT IS WITHIN REACH; PATIENT IS NOW SLEEPING IN BED.
--- NOTE | 2020-06-16 04:32 | NUR ---
SHIFT SUMMARY AOXSELF ONLY. HAS NONSENSICAL SPEECH & DOESN'T ANSWER QUESTIONS OR FOLLOW DIRECTIONS APPROPRIATE. REPORTED SEEING A "MAN" IN HER ROOM WHEN ONLY THIS NURSE & PT WAS PRESENT. STARTED TO GET MORE RESTLESS, AWAKE, & AGITATED DURING ASSESSMENT-WAS BITING BLANKETS, KICKING FEET OVER SIDE OF BED RAILS & SWEARING. THEREFORE AROUND 2200 I GIVE THE 1700 SCHEDULED 150MG SEROQUEL THAT WAS HELD PREVIOUSLY ON DAY SHIFT, BEFORE PTS AGITATION WAS OUT OF CONTROL. PT HAS BEEN RESTING WELL T/O NIGHT SINCE & HAS BEEN PLEASENT & COOPERATIVE. VSS. AWAITING PLACEMENT. INCONT OF URINE, ATTENDS CHANGED PRN. CALL LIGHT & BED ALARM IN PLACE FOR SAFETY. WILL MONITOR.
--- NOTE | 2020-06-16 17:12 | NUR ---
SHIFT SUMMARY PATIENT ALERT TO SELF THIS SHIFT. PATIENT SLEPT THROUGH MUCH OF THIS SHIFT. PATIENT REFUSES MEDICATIONS AND MUCH OF CARE THIS SHIFT, EITHER STATING "MAYBE I'LL TAKE IT LATER" OR "I DON'T WANT TO TAKE ANYTHING RIGHT NOW." PATIENT DENIES PAIN OR NEEDS THROUGHOUT THIS SHIFT. PATIENT WITH A FLAT AFFECT THROUGHOUT THIS SHIFT. PATIENT CURRENTLY SITTING UP IN THE CHAIR AWAITING DINNER.
--- NOTE | 2020-06-17 06:07 | NUR ---
SHIFT SUMMARY AOXSELF ONLY. DOES NOT FOLLOW DIRECTIONS OR ANSWER QUESTIONS APPROPRIATE. HAS NONSENSICAL SPEECH. LAST NIGHT PT ATTEMPTED TO GET OOB MULTIPLE x W/O HELP, WAS STRIPPING CLOTHING OFF, RESTLESS, PULLING ON CORDS & IRRITATED. MEDICATED c SCHEDULED HS SEROQUEL & ATIVAN CRUSHED IN VANILLA PUDDING, PT DIDN'T REFUSE MEDS GIVEN THIS WAY & HAS BEEN PLEASENT & COOPERATIVE SINCE. SLEPT SOUNDLY T/O NIGHT. NO S/S OF PAIN, N/V OR DYSPNEA. INCONT OF URINE, ATTENDS CHANGED PRN. BED ALARM & CALL LIGHT IN PLACE. WILL MONITOR.
--- NOTE | 2020-06-17 17:28 | NUR ---
SHIFT SUMMARY PATIENT ALERT TO SELF THIS SHIFT. PATIENT FREQUENTLY ATTEMPTING TO CLIMB OUT OF BED OR CHAIR THIS SHIFT. PATIENT REMAINS CONFUSED AND MINIMALLY REDIRECTABLE. PATIENT DENIES PAIN THIS SHIFT. PATIENT REFUSED MORNING MEDICATIONS THIS SHIFT. PATIENT CURRENTLY SITTING UP IN BED WATCHING TELEVISION.
--- NOTE | 2020-06-18 04:44 | NUR ---
SHIFT SUMMARY ASSUMED CARE OF PT AT 1900. PT IS A/O TO NOTHING. HEART SOUNDS REGULAR, LUNG SOUNDS CLEAR. PT WAS C/I OF URINE. PT HAD LARGE BM IN COMMODE. PT WAS 2P ASSIST TO COMMODE AND BED. PT WAS TEARFUL TONIGHT. PT DID NOT SLEEP TILL ABOUT 0000. NO ACUTE EVENTS DURING THE NIGHT. PT SLEPT T/O THE NIGHT. CALL LIGHT IN REACH, BED IN LOWEST POSTION.
--- NOTE | 2020-06-18 16:13 | NUR ---
PT SOOME PLEASANT TODAY, SLEPT UNTIL ABOUT 10-11 THIS AM. REFUSED AM MEDS. DID AMBULATE TO BATHROOM 3 TIMES WITH ME TODAY. NEEDED CONSTANT CUEING. SHALINI WHEN TRYING TO MAKE SITTING AT COMMODE. DID BECOME MORE AGITATED THIS AFT. GETTING OUT OF BED AND BECOMING CONFRONTATIONAL. MEDICATED FOR HER AGITATION THIS AFT. PRESENTS COME MORE CALM AT THIS TME. NO NEW CONCERNS AT THIS TIME. BED IN LOW POSITIOIN, CALL LITE IN REACH, BED ALARM ON FOR SAFETY
--- NOTE | 2020-06-19 04:00 | NUR ---
FAX MACHINE REPAIRER SUMMARY PT A&O TO SELF ONLY, PLEASANTLY CONFUSED, MULTIPLE ATTEMPTS OF BED EXITING EARLY IN THE SHIFT. PT SAFELY REDIRECTED BACK TO BED. NO C/O PAIN OR ANY DISCOMFORT THIS SHIFT. NO C/O CP, SOB, OR N&V. PT WAS ABLE TO AMBULATE TO THE BATHROOM THIS SHIFT W/ 1P SBA. BED CALM AND RESTING IN BED AT THIS TIME. BED AT LOWEST POSITION W/ ALARM ON. CALL LIGHT WITHIN REACH.
--- NOTE | 2020-06-19 17:32 | NUR ---
Spiritual care note: Beckie appears frail and confused. 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 She smiled at my stupid jokes and appeared to enjoy having her hands and arms massaged with lotion. She became very tearful during prayer and said it was b/c she had been "kicked out of christianity for being bad." She responded well to gentle assurance and was then easily redirected. She is certainly becoming more confused. Forge Operator services will remain available.
--- NOTE | 2020-06-19 19:01 | NUR ---
NO ACUTE CHANGES, PT DID RECEIVE PO SEROQUEL AT 1542 THIS AFTERNOON FOR SOME MILD INCREASED AGITATION. WILL CONTINUE TO MONITOR AND REPORT TO ONCOMING RN.
--- NOTE | 2020-06-20 04:42 | NUR ---
MOLD CONSTRUCTION SUPERVISOR SUMMARY PT A&O TO SELF ONLY, PLEASANTLY CONFUSED THIS SHIFT. NO C/O PAIN OR ANY DISCOMFORT THIS SHIFT. DENIES CP, SOB, OR N&V. CALM AND RESTED IN BED T/O THE SHIFT. COOPERATIVE TO CARE. BED AT LOWEST POSITION W/ ALARM ON. CALL LIGHT WITHIN REACH.
--- NOTE | 2020-06-20 17:57 | NUR ---
NO ACUTE CHANGES NOTED THIS SHIFT, WILL CONTINUE TO MONITOR AND REPORT TO ONCOMING RN
--- NOTE | 2020-06-20 18:07 | NUR ---
NO ACUTE CHANGES NOTED THIS SHIFT, NO AGGRESSIVE BEHAVIOUR. WILL CONTINUE TO MONITOR AND REPORT TO ONCOMING RN
--- NOTE | 2020-06-21 04:40 | NUR ---
REFERRAL AND INFORMATION AIDE SUMMARY NO ACUTE CHANGES NOTED TO PT THIS SHIFT. A&O TO SELF, CONFUSED, REDIRECTABLE. MULTIPLE ATTEMPTS OF BED EXITING, PT REDIRECTED TO BED SAFELY. NO C/O PAIN OR ANY DISCOMFORT THIS SHIFT. DENIES CP, SOB, OR N&V. PT CALM AND RESTING IN BED AT THIS TIME. BED AT LOWEST POSITION W/ ALARM ON. CALL LIGHT WITHIN REACH.
--- NOTE | 2020-06-21 18:19 | NUR ---
SHIFT SUMMARY PT AOX1; SELF ONLY. DENIES PAIN OR SOB. PT CONTINOUSLY WILL TRY TO GET OUT OF BED AND WILL CONT GO TO OTHER PT ROOM. PT VERY AGITATED AND IRRITATED TODAY; SEROQUEL GIVEN X1. PT REFUSED AM MEDS. BED ALARM IS ON AND CALL LIGHT WITHIN REACH.
--- NOTE | 2020-06-22 04:26 | NUR ---
SHIFT SUMMARY: VSS. AAOX1. MORE PLEASANT DEMEANER TONIGHT. VERY ACTIVE AT HS, FREQUENTLY ATTEMPTING TO STAND UP INDEPENDENTLY IN ROOM- SOUNDING BED ALARM BUT DISPLAYING NO INCREASE IN AGITATION. HAS REMAINED AWAKE FOR MOST OF THE NIGHT, QUIETLY PLAYING W/ BLANKETS. INCREASED WEAKNESS WITH AMBULATION NOTED AFTER HS MEDS. MOSTLY INCONTINENT OF URINE. WARM PACK PLACED FOR REPORTS OF BACK PAIN, APPEAR TO HELP PT APPEARS MORE RELAXED AND OFFERS NO FURTHER C/O PAIN. NO ACUTE CHANGES TONIGHT. WCTM.
--- NOTE | 2020-06-22 12:58 | NUR ---
NON VIOLENT RESTRAINTS APPLIED TO THIS PT AT 1258. LUMBER TALLIER HAWA AND DR TESFAYE. PT WAS VERY AGITATED AND GOING TO OTHER PT ROOM AND WANDERING AROUND. PT WAS CURSING TO THIS RN ALL MORNING. PT WAS VERY UNSTEADY ON FEET AND WEAK. PT STATED "I DONT CARE IF IT'S NOT MY ROOM, I WILL STILL GO IN THERE." PT ALSO STATED, I DONT CARE IF I FALL ON THE GROUND WHY DO YOU CARE?" ALSO, PT EDUCATED MULTIPLE TIMES ABOUT USING THE CALL LIGHT AND STILL GETTING UP WITHOUT USING THE CALL LIGHT. THIS PT INCREASINGLY GET AGITATED AND CURSING EVEN MORE. PT REFUSSED SEROQUEL PRN FOR AGITATION. PT WAS INCREASINGLY CONFUSED TODAY. THIS RN AND WOOD CARVING MACHINE OPERATOR EXPLAINED AND TRIED EVERYTHING USING DISTRACTION, COMFORT, AND ETC. WILL CONTINUE MONITOR PER RESTRAINT MANAGEMENT POLICY
--- NOTE | 2020-06-22 17:28 | NUR ---
SHIFT SUMMARY PT AOX1 SELF ONLY. DENIES PAIN DURING THIS SHIFT. NO IV ACCESS NEEDED. PT IS ON NON-VIOLENT RESTRAINTS-SEE NOTES. PT HAD SEVERAL DOSES CHANGES FOR PRN PSYCH MEDS TODAY PER DR GUTIERREZ. PT IS ON CAMERA AND SITTING ON THE CHAIR ON VEST RESTRAINTS. CHAIR ALARM IS ON AND CALL LIGHT WITHIN REACH, POSSESSIONS WITHIN REACH.
--- NOTE | 2020-06-23 04:34 | NUR ---
RESTRAINT REMOVED AT 0330. ACCEPTED [facility] AND PT HAS REMAINED CALM AND MORE COOPERATIVE W/ CARES SINCE. AGGRESSION DECREASED. AWAKE IN ROOM FOR MOST OF THE NIGHT QUIETLY TALKING TO SELF AND PICKING AT BLANKETS AND RESTRAINT TIES. REMAINS ON REMOTE VIDEO MONITORING. SIDE RAILS UP X 3. BED LOW, BED ALARM ON, CALL BUTTON IN REACH.
--- NOTE | 2020-06-23 04:37 | NUR ---
SHIFT SUMMARY: VSS. AFEB. A/O TO SELF ONLY. AGITATED, THROWING STUFF AT STAFF AND THREATENING, FREQUENT ATTEMPTS TO SELF AMBULATE AT HS. PT ACCEPTED [facility] AND HAS CALMED SINCE. RESTRAINTS REMOVED. PT REMAINS CALM AND RELAXED SINCE. MED X 1 FOR BACK PAIN EFFECTIVELY. WARM K-PAD IN PLACE TO LOW BACK. NO ACUTE OVERNIGHT CHANGES. WCTM.
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
--- NOTE | 2020-06-23 15:03 | NUR ---
ALERT TO SELF. ONE PERSON ASSIST TO CHAIR. HAS NOT BEEN AGGRESSIVE THIS SHIFT. NONSENSICAL WORDS. POOR APPETITE. SLEEPING MOST OF SHIFT SO FAR. UNLABORED RESPIRATIONS. WAITING PLACEMENT. TM
--- NOTE | 2020-06-23 17:15 | NUR ---
AT AROUND 1600 PATIENT AMBULATORY IN ROOM, VERY UNSTEADY ON FEET AND PUSHES AWAY ASSISTANCE. SWEARING AT STAFF. SWINGS AT STAFF. ATTEMPT TO TRY AND OFFER DIVERSIONAL ACTIVITIES WITHOUT SUCCESS. PATIENT FOR SHORT TIME IN HALLWAY SITTING BY RN. TRIES TO GET UP OFTEN BY PUSHING CHAIR BACK WITHOUT SUCCESS. NON REDIRECTABLE. ABOUT [address]KHAN BHATT. ORDERED AND APPLIED.
--- NOTE | 2020-06-24 04:37 | NUR ---
84 year old Female admitted 04/17/20 with sepsis related to UTI continues to required softvest restraint to prevent falls due to poor safety awareness & unsteady gait. She has been fairly quiet & coopearative with 1 bite of meds crushed & given in vanilla pudding.incontinent of urine. does not use call valdivia. Fall precautions in place.
--- NOTE | 2020-06-24 13:21 | NUR ---
Patient agreed to work with student nurse today.
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
--- NOTE | 2020-06-24 19:39 | NUR ---
PATIENT CHAIR EXIT X 8 LAST THIRTY MINUTES. ON [place]. INCREASED AGITATION. NOT ABLE TO FOLLOW DIRECTIONS. CURSING AT STAFF.
--- NOTE | 2020-06-24 22:03 | NUR ---
HOSPITALIST PAULINE TIRE CORD WEAVER ORDERED GIL VEST. PATIENT WITH INCREASED AGITATION AND CURSING.
--- NOTE | 2020-06-25 03:35 | NUR ---
SHIFT SUMMARY PATIENT HAD INCREASED AGITATION AND CONFUSION WITH OVER SIX CHAIR EXITS, ON CAMERA. BECAME COMBATIVE AND CURSING AT STAFF. HOSPITALIST PAULINE FURNACE CLEANER ORDERED GIL VEST AND PLACED. AXO TO SELF. NO IV ACCESS. TAKES MEDICATION CRUSHED IN APPLESAUCE. VSS/AFEBRILE. DENIES PAIN, SOB, AND N/V. ONE ASSIST WITH GAIT BELT TO BSC. CALL LIGHT IN REACH. BED IN LOWEST POSITION AND ALARM ACTIVATED. WILL CONTINUE TO MONITOR UNTIL DAY SHIFT NURSE ASSUMES CARE.
--- NOTE | 2020-06-25 04:11 | NUR ---
PATIENT REFUSING VITALS.
--- NOTE | 2020-06-25 16:55 | NUR ---
SHIFT SUMMARY- PT A/O TO SELF ONLY. PT IN GIL AT START OF SHIFT BUT WAS PLEASANT COOPERATIVE, GIL DC'D AT THAT TIME. LS CLEAR, ON RA. PT DENIES ANY COMPLAINTS T/O THE DAY. MIRLAX GIVEN FOR NO BM. PT UP AMBULATING IN ROOM INDEP, USES FURNITURE OR WALKER TO GET AROUND. PT IRRITABLE AT TIMES, PRN SEROQUEL GIVEN X1. PT CONTINUES TO AWAIT PLACEMENT.
--- NOTE | 2020-06-26 06:12 | NUR ---
SHIFT SUMMARY PT IS AN 84 Y/O FEMALE, ADMITTED FOR SEPSIS R/T UTI AND CURRENTLY AWAITING PLACEMENT. SHE IS A&O X SELF ONLY, 1PA IN THE ROOM. NO C/O PAIN, NAUSEA OR SOB. PT SLEPT WELL THROUGH THE NIGHT AFTER RECEIVING HS MEDICATIONS. VITAL SIGNS STABLE. NO ACUTE CHANGES IN PT CONDITION NOTED. WILL CONTINUE TO MONITOR AND TREAT PER EMAR UNTIL HAND OFF TO DAY SHIFT RN.
--- NOTE | 2020-06-26 17:20 | NUR ---
Spiritual care note: Beckie was confused and mumbled when she spoke. She was difficult to understand. She appeared calm and weak. We sat in chairs outside of her room and chatted happily. She smiled easily at my stupid jokes, and appeared to enjoy companionship. I will remain available.
--- NOTE | 2020-06-26 17:41 | NUR ---
SHIFT SUMMARY- PT A/O TO SELF ONLY. PT DENIES ANY PAIN T/O THE DAY. LS CLEAR, ON RA. PT ALLOWED DRESSING TO MID BACK TO BE CHANGED TODAY, SITE WITH LUMP BUT NO OPEN AREA. PT HAS BEEN UP INDEP IN ROOM TODAY AND SBA UP IN THE HALLS, PT USES FURNITURE TO GET AROUND. PT HAS BEEN PLEASANT AND COOPERATIVE T/O THE DAY, PT STARTED TO GET A LITTLE MORE IRRITABLE THIS EVENING AROUND 1700, PRN SEROQUEL GIVEN. BM TODAY. PT CONTINUES TO AWAIT PLACEMENT.
--- NOTE | 2020-06-27 06:37 | NUR ---
SHIFT SUMMARY PT IS AN 84 Y/O FEMALE, ADMITTED FOR UTI AND SEPSIS AND CURRENTLY AWAITING [facility] PLACEMENT. PT IS A&O X SELF ONLY, NONSENSICAL SPEECH, 1PA OUT OF BED. VITAL SIGNS STABLE. NO C/O PAIN, NAUSEA OR SOB. PT SLEPT WELL THROUGH THE NIGHT AFTER RECEIVING HS MEDS. NO ACUTE CHANGES IN PT CONDITION NOTED. WILL CONTINUE TO MONITOR AND TREAT PER EMAR UNTIL HAND OFF TO DAY SHIFT RN.
--- NOTE | 2020-06-27 18:42 | NUR ---
SHIFT SUMMARY PT A/O TO SELF ONLY AND HAS NONSENSICAL SPEECH AT TIMES. 1/SBA TO GET UP AND SOMETIMES SITS IN THE EDOUARD TO BE WATCHED BY STAFF. TAKES MEDICATIONS CRUSHED IN JUICE. HAS BEEN EASILY REDIRECTABLE THIS SHIFT. NO ACUTE CHANGES THIS SHIFT. AWAITING PLACEMENT. VSS; WILL REPORT TO BIODIESEL PRODUCT MANAGER RN.
--- NOTE | 2020-06-27 19:40 | NUR ---
VERIFIED VIDEO MONITORING CALLED AND VERIFIED VIDEO MONITORING IS IN PLACE
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
--- NOTE | 2020-06-27 23:10 | NUR ---
CALLED HOSPITALIST PT EXITING ROOM AND HIGHLY AGITATED. REFUSING TO REDIRECTED. I AM CONCERNED FOR HER SAFETY FOLLOWING ADMIN OF SEDATING MEDICATION. ORDER FOR GIL RESTRAINT AND NEW MEDICATION RECEIVED.
--- NOTE | 2020-06-28 04:21 | NUR ---
SHIFT SUMMARY ADMITTED FOR SEPSIS/UTI. FULL CODE. PLAN IS FOR PLACEMENT. PT HAD INCREASED AGITATION AND BEHAVIORS THIS SHIFT (SEE PREVIOUS NOTES). PT DID NOT SLEEP THIS SHIFT. PT REFUSED ORAL MEDS, AND REFUSED MEDS CRUSHED IN PUDDING. GIL VEST IS IN PLACE. VIDEO MONITORING IS IN PLACE. BED ALARM IS ON. PT IS CONFUSED.
--- NOTE | 2020-06-28 14:41 | NUR ---
SHIFT SUMMARY NO ACUTE CHANGES TO PRESENT THIS SHIFT. PT REMAINS MEDICALLY STABLE, BUT REPORTS THAT HE IS NOT MOBILE ENOUGH TO MANAGE ON HIS OWN. PT UNABLE TO GO TO SNF AT THIS TIME. PT ENCOURAGED TO WORK WITH P/T TODAY. ASSISTED TO CHAIR AT FOR BETTER ACCESS TO WORK WITH P/T. JENNY BOOTS TO BLE'S D/T BE CHANGED TOMORROW. DR KIDD AND DR DÍAZ BOTH IN TO SEE PT TODAY. JUVENILE JUSTICE SPECIALIST WORKING TO GET PT HOME WHEN POSSIBLE. CALL LT IN REACH. ABLE TO MAKE NEEDS KNOWN.
--- NOTE | 2020-06-28 15:02 | NUR ---
SHIFT SUMMARY NO ACUTE CHANGES TO PRESENT THIS SHIFT. PT CONTINUES TO WAIT PLACEMENT IN MEMORY CARE. PT UP TO BTHRM THIS AM FOR BM AND THEN WANTED TO SIT BACK ON THE BED. PT NOW SITTING UP TO CHAIR AT BS LOOKING OUT WINDOW. PT IS CONFUSED WITH DEMENTIA. TALKS QUIETLY TO HERSELF AT TIMES. HAS BEEN CO-OP IF YOU ARE PATIENT WITH HER. NO C/O. DENIES FURTHER NEEDS. DR KIM IN TO SEE PT THIS AM. NO NEW ORDERS AT THIS TIME. CALL LT IN REACH.
--- NOTE | 2020-06-28 19:05 | NUR ---
VERIFIED VIDEO MONITORING CALLED VIDEO MEDIA PRODUCER TO VERIFY VIDEO MONITORING
--- NOTE | 2020-06-29 04:23 | NUR ---
SHIFT SUMMARY ADMITTED FOR SEPSIS/UTI. FULL CODE. PLAN IS FOR PLACEMENT. PT IS CONFUSED. LOOSE STOOLS REPORTED SO BOWEL CARE HELD. SHE IS A&O TO SELF ONLY. SHE DOES HALLUCINATE. GIL RESTRAINT IN PLACE DUE TO DANGER TO SELF. SHE WANDERS, IS UNSTEADY ON HER FEET, NOT REDIRECTABLE, WILL NOT FOLLOW INSTRUCTIONS. BUT SHE DID SLEEP THIS SHIFT. WITH ADEQUATE REST I AM HOPEFUL FOR HER IMPROVEMENT. NO NEW CONCERNS THIS SHIFT.
--- NOTE | 2020-06-29 15:55 | NUR ---
SHIFT SUMMARY PT SLEPT LATE THIS AM. PER SHIFT REPORT, PT ACTUALLY RESTED WELL LAST NIGHT AND INTO THIS AM. PT WOKE PLEASANT, BUT DIDN'T WANT TO EAT OR DRINK MUCH. UNABLE TO GET PT TO TAKE ANY PO MEDICATION. PT HAS BEEN CO-OP IF YOU ARE PATIENT AND AGREEABLE WITH HER. PT UP TO SHOWER THIS AFTERNOON. ABLE TO AMBULATE TO BTHRM USING FWW AND 1P ASSIST. 2P ASSIST INTO SHOWER FOR SAFETY. PT WAS CO-OP IN THE SHOWER AND THEN AMBULATED TO CHAIR AT FOR A COUPLE OF HOURS AFTERWARD. PT HAS BEEN MOSTLY QUIET TODAY. TEARFUL RECENTLY AFTER GETTING INTO BED FOR SOME REASON. PT WAS TEARFUL IN THE AFTERNOON YESTERDAY WELL. RESTING QUIETLY AT THIS TIME, LOOKING OUT WINDOW. BED ALARM ON FOR SAFETY. CALL LT IN REACH.
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
--- NOTE | 2020-06-29 23:40 | NUR ---
DR HAIDER renews vest restraint order. PT continues restless despite haldol 3 mg im & benadryl 25 mg IM. Continues to throw food on floor. Puts legs out side of bed repeatledly. on remote camera monitoring.
--- NOTE | 2020-06-30 06:41 | NUR ---
PT refused am med synthroid.
--- NOTE | 2020-06-30 17:14 | NUR ---
PT IS ALERT, ORIENTED TO SELF ONLY, THE PT APPEARS TO BE BREATHING EASILY ON RA AT THIS TIME, THIS AM THE PT WAS SLEEPY BUT PLEASANT AND COOPERATIVE, PT WAS TAKEN OUT OF A GIL VEST THIS AM, THIS AFTERNOON THE PT IS UP WALKING IN THE EDOUARD BUT IRRITATED AND AGRESSIVE AT TIMES, PT DENIES ANY PAIN, PT IS SUPERVISED IN THE EDOUARD AT THIS TIME, WILL CONTINUE TO MONITOR AND ASSESS FOR CHANGES
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
[2020-07-01 13:07] LABS: Hematocrit 40.1 % (33.0-51.0)
[2020-07-01 13:28] LABS: Anion Gap 7 mmol/L (6-16); Blood Urea Nitrogen 26 mg/dL (8-24); Bun/Creatinine Ratio 45.5 (12.0-20.0); CO2, Blood 25 mmol/L (21-32); Calcium, Blood 8.9 mg/dL (8.5-10.1); Chloride, Blood 109 mmol/L (98-108); Creatinine, Blood 0.57 mg/dL (0.40-1.00); Glomerular Filtration Rate >60 (60-); Glucose, Blood 118 mg/dL (70-99); Potassium, Blood 3.3 mmol/L (3.5-5.5); Sodium, Blood 141 mmol/L (136-145)
--- NOTE | 2020-07-01 17:02 | NUR ---
PT IS ALERT ORIENTED TO SELF ONLY , PT WAS REMOVED FROM GIL VEST RESTRAINTS THIS AM AND HAS BEEN UP WALKING IN HER ROOM, PT APPEARS TO BE BREATHING EASILY ON RA AT THIS TIME AND HAS BEEN IRRIATABLE AT TIMES BUT SO FAR REDIRECTABLE, PT DENIES ANY PAIN AT THIS TIME, WILL CONTINUE TO MONITOR AND ASSESS FOR CHANGES, PT IS UP IN THE EDOUARD AT THIS TIME
--- NOTE | 2020-07-02 06:31 | NUR ---
84 year old Female with dementia with agressive behaviors continues to be unreastrained this shift. She did take HS meds crushed in applesauce & had no violent behaviors. She ate 2 puddings fed self with setup & cues. She was up to bedside commode x 1 & urine dark & concentrated. Poor fluid intake. Void x 1 in bathroom. Wears pullup assist needed with toileting. Weak after HS med needed extensive assist to BSC this AM. Refuses AM synthroid.
--- NOTE | 2020-07-02 15:15 | NUR ---
PATIENT IS SLEEPY, BUT UP AND AWAKE TODAY. SHE HAS BEEN REMAINING IN HER ROOM THIS SHIFT. PATIENT DID NOT ALLOW FOR HER VITALS TO BE CHECKED THIS MORNING HOWEVER THIS AFTERNOON THEY WERE STABLE. PATIENT MAINLY STAYS TO HERSELF TODAY. HAS TAKEN HER MEDICATION SO FAR. PATIENT REMAINS IN HER ROOM RESTING IN HER BED AT THIS TIME. CALL LIGHT WITHIN REACH.
--- NOTE | 2020-07-02 21:46 | NUR ---
1935 PT RESTING CHAIR HALLWAY; ALERT AND ORIENTED X 1 AND ABLE TO F0LLOW SIMPLE VERBAL COMMANDS; COOPERATIVE WITH STAFF WHILE TALKING WITH PATIENT FROM 350 WHOM IS SITTING IN HALLWAY.
--- NOTE | 2020-07-03 03:59 | NUR ---
SHIFT SUMMARY: 84 Y/O SLENDER FEMALE RESTED COMFORTABLY ALL SHIFT; PT ALERT AND ORIENTED X 1 AND ABLE TO FOLLOW SIMPLE VERBAL COMMANDS; PT SAT IN CHAIR OUTSIDE ROOM FOR 4 HOURS BEFORE HEADING BED WITH ENCOURAGEMENT BY STAFF; DENIES PAIN OR NAUSEA; PT AWAITING PLACEMENT YET AT THIS TIME; BED ALARM APPLIED FOR SAFETY, BED LOW POSITION WITH CALL LIGHT AT SIDE.
--- NOTE | 2020-07-03 17:55 | NUR ---
SHIFT SUMMARY PT AOX1. SAT DOWN AT THE HALLWAY MOST OF THE DAY WITH OTHER PATIENT. PT AGITATED AT TIMES. PT GIVEN SEROQUELX1- CRUSHED WITH CHOCOLATE PUDDING. PT STILL AWAITS FOR PLACEMENT. BED IS AT THE LOWEST POSITION, AND CONTINUE TO REORIENT THE PATIENT WHEN TRYING TO GO TO OTHER PT ROOM.
--- NOTE | 2020-07-03 19:45 | NUR ---
84 Y/O FEMALE SITTING UP CHAIR IN HALLWAY ELISE TALKING TO FELLOW PATIENT; ALERT AND ORIENTED X 1.
--- NOTE | 2020-07-04 03:40 | NUR ---
SHIFT SUMMARY: 84 Y/O FEMALE HAD RESTLESS BEGINNING OF SHIFT WITH PATIENT VERY AGITATED AND DECLING FOLLOW DIRECTIONS OR TAKE ANY H.S. MEDICATIONS; PT WAS THEN GIVEN A B52 IM SHOT WITH PT THEN ABLE TO RELAX AND SLEEP ALL SHIFT; PT ALERT TO SELF ONLY AND REQUIRES FREQUENT ASSISTANCE WITH ALL ADLS/IADLS FROM STAFF; PT DENIES PAIN OR NAUSEA; PT WAITING PLACEMENT AT THIS TIME; BED ALARM APPLIED FOR SAFETY WITH CALL LIGHT AT SIDE.
--- NOTE | 2020-07-04 18:14 | NUR ---
SHIFT SUMMARY PT AOX1. SITS IN HALLWAY WITH SUPERVISIONS TODAY. PT VERY WEAK ON HER FEET TODAY AND UNSTEADY. EDUCATED THE PT THAT SHE NEEDS TO STAY IN A CHAIR OR BED. PT REFUSED SOME PO MEDS TODAY. PT TOOK SERAQUELX1. PT STATED "I FEEL WEAK TODAY." PT IS NOW EATING IN THE ROOM. CAMERA IS ON. BED IS IN THE LOWEST POSITION AND CALL LIGHT WITHIN REACH
--- NOTE | 2020-07-04 21:23 | NUR ---
AWAKE, UNSTEADY. WALKING WITH STAFF. ENCOURAGED TO BE SAFE. REFUSED MEDS, ASSISTED BACK TO BED. CALL LIGHT IN REACH
--- NOTE | 2020-07-05 03:41 | NUR ---
SHIFT SUMMARY WAS AWAKE AT SHIFT COMMENCE, AMBULATING SOMEWHAT UNSTEADYAT THAT TIME. ENCOURAGED TO USE WALKER, BUT REFUSED. RECEIVED HS MEDS, AND ASISTED TO BED, GIL VEST APPLIED PER ONCALL ORDERS FOR SAFETY, REDIRECTIONS SEEMED TO GO UNHEEDED BY PT. CALL LIGHT IN REACH.
--- NOTE | 2020-07-05 18:01 | NUR ---
SHIFT SUMMARY NO ACUTE CHANGES T/O SHIFT, A&O TO SELF AND PLACE, COOPERATIVE WITH CARE. PT REMAINED IN GIL VEST T/O SHIFT DUE TO HER UNSTEADY GAIT, HIGH RISK FOR FALLS/RECENT FALL, IMPULSIVENESS, AND DISORIENTED. PT TOOK ALL PO MEDS PRESCRIBED. WAS IRRITABLE AT TIMES BECAUSE SHE WANTS TO LEAVE. PT WAS INCONTINENT T/O SHIFT, PT CALLS TO USE THE BSC BUT BY THE TIME SHE GETS UP SHE HAS ALREADY URINATED IN HER ATTENDS. SHE IS CURRENTLY SITTING UP IN BED EATING DINNER. CALL LIGHT IS WITHIN REACH, GIL VEST AND BED ALARM ON.
--- NOTE | 2020-07-05 20:01 | NUR ---
AGITATED, PULLING AT VEST. TRYING TO GET OUT OF BED, VERY UNSTEADY GAIT. NOT REDIRECTABLE, VERBALLY CHASTIZING TOWARD STAFF. GIL VEST RESTRAINT RENEWED FOR SAFETY. MEDS GIVEN IN PUDDING. CALL LIGHT IN REACH
--- NOTE | 2020-07-06 03:29 | NUR ---
SHIFT SUMMARY HAS BEEN RESTING QUIETLY WITH OCCASIONAL ATTEMPT TO GET OUT OF BED. REMAINS UNSTEADY AND UNREDIRECTABLE WHEN CUED FOR SAFETY ISSUES. GIL VEST IN PLACE. INCONT OF URINE, LINEN AND PT CHANGED. SLAPPED AT NURSE WHEN CHANGING HER. CALL LIGHT IN REACH. CAMERA REMAINS ON FOR SAFETY REASONS.
--- NOTE | 2020-07-06 16:56 | NUR ---
SHIFT SUMMARY NO ACUTE CHANGES T/O SHIFT, A&O TO SELF AND PLACE, PRIMARILY CALM AND COOPERATIVE WITH CARE. PT IRRITABLE AT TIMES WHEN CARE ATTEMPTED BUT PT WOULD EVENTAULLY ALLOW STAFF TO PERFORM NEEDED CARE. PT REPORTED NO DISTRESS T/O SHIFT. REMAINED IN GIL T/O DAY DUE TO IMPULSIVENESS, UNSTEADY GATE, AND CONSTANTLY ATTEMPTING TO GET OUT OF BED BY HERSELF. GIL DID NOT CAUSE STRESS TO PT. PT IS CURRENTLY SITTING UP AT [facility] WITH CALL LIGHT NEAR, ON REMOTE MONITORING, AND GIL IN PLACE.
--- NOTE | 2020-07-06 21:42 | NUR ---
REMAINS HIGH FALL RISK. GIL VEST RESTRAINT RENEWED PT CONTINUES TO REFUSE REDIRECTION AND SAFETY CUES. CALL IGHT IN REACH AFTER ASSISTED TO BED. WILL CONTINUE TO MONITOR
--- NOTE | 2020-07-07 04:03 | NUR ---
SHIFT SUMMARY CONTINUES TO REFUSE REDIRECTION RE SAFETY ISSUES, HIGH FALL RISK. GIL VEST IN PLACE FOR SAFETY. CALL LIGHT IN REACH. HAS BEEN RSTING QUIETLY WITH FEW INTERRUPTIONS NOTED.
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
--- NOTE | 2020-07-08 03:53 | NUR ---
GOLF CLUB WEIGHTER SUMMARY A/O TO SELF ONLY. UNSTEADY GAIT WHILE AMBULATING, ATTEMPTING TO GET UP WITHOUT REGARD TO SAFETY. GIL IN PLACE T/O NIGHT. DENIES PAIN OR SOB. NO ACUTE CHANGES AT THIS TIME. BED IN LOWEST POSITION WITH CALL LIGHT IN REACH. WILL CONTINUE TO MONITOR AND REPORT TO ONCOMING RN.
--- NOTE | 2020-07-08 15:06 | NUR ---
PATIENT REFUSING VS, IS AGITATED, WALKING AROUND WITH FWW TRYING TO OPEN DOUBLE DOORS, ANGERS EASILY. REFUSED GOWN AND ATTENDS CHANGE. TREY DANG NOTIFIED. WILL ATTEMPT AGAIN LATER.
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
--- NOTE | 2020-07-08 18:13 | NUR ---
SHIFT SUMMARY PT HAD VERY PLEASANT & COOPERATIVE MORNING. THIS AFTERNOON PT HAS BECOME MORE AGITATED. SEE PREVIOUS NOTE. GIL NOW IN PLACE ORDERED. PT SITTING UPRIGHT IN BED EATING DINNER. PT AMBULATING TO BATHROOM PRIOR TO RESTRAINT FOR TOILETING. CONT/INC. TOILETING HAS BEEN OFFERED BUT NOT NEEDED YET SINCE RESTRAINT APPLICATION. NO OTHER ACUTE CHANGES IN ASSESSMENT AT THIS TIME. PT REFUSED AFTERNOON VS AFTER 2 ATTEMPTS.
--- NOTE | 2020-07-09 05:45 | NUR ---
GTA SUMMARY PT A&O TO SELF ONLY, CONFUSED, NONSENSICAL SPEECH. IRRITABLE AND EASILY AGITATED AT TIMES. PT CONT ATTEMPT TO EXIT BED W/O ASSISTANCE FROM STAFF. PT IS A HIGH FALL RISK D/T UNSTEADY GAIT. PT CONT ON GIL VEST T/O SHIFT. NO C/O PAIN OR ANY DISCOMFORT. NO CP, SOB, OR N&V. PT CURRENTLY RESTING IN BED AT THIS TIME. BED AT LOWEST POSITION W/ ALARM ON. CALL LIGHT WITHIN REACH.
--- NOTE | 2020-07-09 18:27 | NUR ---
SHIFT SUMMARY PT SLEEPING TIL AFTER LUNCH. MORE AWAKE THIS AFTERNOON. RESTRAINTS NOT RENEWED AND ALLOWED TO . HASN'T BEEN IN RESTRAINTS SINCE THEN AND HAS BEEN UP WALKING AROUND IN ROOM AND REQUESTING TO GO TO THE BATHROOM SEVERAL TIMES THIS AFTERNOON. CAN BE DIFFICULT TO REDIRECT AT TIMES BUT WHEN ALLOWED TO DECIDE FOR HERSELF SHE HAS BEEN COOPERATIVE. APPEARS VERY CAREFUL WHEN WALKING AROUND MANAGING TO MOVE AROUND OBSTACLES WELL.
--- NOTE | 2020-07-10 05:46 | NUR ---
SHIFT SUMMARY- PT. ALERT TO SELF, CONFUSED, AND COOPERATIVE WITH CARE LAST NIGHT. NO COMPLAINTS OF PAIN. PT. WAS UP IN CHAIR PART OF THE NIGHT, SCHEDULED MEDS TAKEN W/O DIFFICULTY. ASSISTED BACK TO BED, SLEPT MOST OF THE NIGHT, NO APPARENT DISTRESS NOTED. VSS. CALL LIGHT WITHIN REACH, SIDE RAILS UPX2, AND BED ALARM ON. WILL CONT TO MONITOR.
--- NOTE | 2020-07-10 18:24 | NUR ---
SHIFT SUMMARY PT WOKE UP LATE MORNING TODAY AND STARTED TRYING TO GET OOB. MONITERED PT WHILE IN ROOM OFFERING BATHROOM SEVERAL TIMES BUT OTHERWISE ALLOWING HER TO WANDER IN HER ROOM AND INTO THE HALLWAY FOR SHORT DISTANCES WITH CLOSE MONITERING BUT HANDS OFF TO DECREASE AGITATION. ALLOWED TO FIDDLE WITH ITEMS IN HER ROOM THAT DIDN'T POSE A DANGER OR DESTRUCTION OF PROPERTY OR CROSS CONTAMINATION WITHOUT INTERFERANCE. WAS IRRITABLE DURING THE DAY BUT NOT AGGRESSIVE OR VIOLENT TOWARD STAFF. SITTING IN HALLWAY THIS EVENING TO EAT DINNER AND HAS BEEN CHATTY WITH STAFF AND AT TIMES SMILING AND JOKING.
--- NOTE | 2020-07-11 04:55 | NUR ---
SHIFT SUMMARY- PT. PLEASANTLY CONFUSED LAST NIGHT, CALM, AND COOPERATIVE WITH CARE. ALLOWED TO AMBULATE IN ROOM WITH SUPERVISION AND ALSO IN THE HALLWAY WHILE BEING CLOSELY MONITORED AND WITH SBA. PT. TOLERATED WELL. TOOK MEDICATIONS W/O DIFFICULTY, SAT ON THE SIDE OF BED FOR PART OF THE NIGHT AND WAS FIDGETING WITH NOTEPAD AND ACTIVITY APRON UNTIL STATED WAS TIRED. ASSISTED PT. INTO BED, PT. CONT TO BE COOPERATIVE. ASLEEP THE REST OF THE NIGHT, NO APPARENT DISTRESS NOTED. INCONT, ATTENDS IN PLACE, AND VSS. CALL LIGHT WITHIN REACH, SIDE RAILS UPX2, AND BED ALARM ON. WILL CONT TO MONITOR.
--- NOTE | 2020-07-11 19:23 | NUR ---
SHIFT SUMMARY PT IS AO TO SELF. PT PLEASANT TODAY AND SAT WITH STAFF IN THE HALLWAY. PT DENIES PAIN, N/V, SOB. PT IS SBA IN ROOM. PT WORKED WITH PT/OT. PLAN IS FOR PLACEMENT. PT HAD NO VISITORS THIS MARISEL. PT IS IN BED, CALL LIGHT IN REACH, BED IN LOW POSITION.
--- NOTE | 2020-07-11 20:19 | NUR ---
PT HAS BEEN VERY MEAN TO STAFF AND CALLING NAMES. PT ATTEMPTED TO PULL ATTENDS OFF AND THREATENED NURSE THAT SHE IS GOING TO PEE ON NURSE. PT CURRENTLY SITTING IN THE HALLWAY IN CHAIR. PT GETS UP AND WANDERS IN THE HALLWAY WITH STANDBY ASSIST.
--- NOTE | 2020-07-12 02:14 | NUR ---
AGITATED PT WANDERING INTO THE HALLWAY BACK AND FORTH AND WILL NOT LISTEN. PT WILL NOT TAKE ORAL MEDS. PT HAS SUCCESSFULLY PULLED THE BED CORD OF SOCKET AND MESSING AROUND WITH COMPUTER IN ROOM. IM INJECTIONS GIVEN FOR AGITATION. BED ALARM IN PLACE, CALL LIGHT WITHIN REACH. WILL CONTINUE TO MONITOR.
--- NOTE | 2020-07-12 06:28 | NUR ---
TAB CUTTING MACHINE OPERATOR SUMMARY PT A/O X0. DID NOT SLEEP TODAY. PT WAS UP ALL NIGHT AND THREATENING BEHAVIOR TO STAFF. PT DOES NOT FOLLOW DIRECTIONS. DENIES PAIN, SOB, NAUSEA. PT DID NOT ALLOW RN TO PERFORM HEAD TO TOE ASSESSMET. PT ALLOWED STAFF TO HAVE VITALS CHECKED LATER IN THE NIGHT. CALL LIGHT WITHIN REACH, BED ALARM ON.
--- NOTE | 2020-07-12 18:40 | NUR ---
END OF SHIFT SUMMARY: PATIENT WAS CALM AND COOPERATIVE THROUGHOUT THE DAY. PATIENT TOOK HER MEDICATIONS WITHOUT DIFFICULTY. PATIENT HAD ONE EPISODE OF AGITATION THIS AFTERNOON. PATIENT WAS PULLING ON HER RESTRAINTS, EXPRESSING THAT SHE WAS GOING TO CUT THEM OFF, AND CRYING. MEDICATED PER PRNS. PROVIDED PATIENT WITH SOME CRAYONS AND COLORING SHEETS. PATIENT WAS APPRECIATIVE AND WORKED ON THIS PROJECT. PATIENT ABLE TO FEED HERSELF HER DINNER.
--- NOTE | 2020-07-13 05:13 | NUR ---
TIMBER HARVESTER OPERATOR SUMMARY PT A/O X0, SLEPT MOST OF THE NIGHT. PT VERY HARD TO RE-DIRECT. OCCASIONAL VISUAL HALLUCINATIONS. VSS. RESTRAINT DC'D OVERNIGHT. BED ALARM ON, CALL LIGHT WITHIN REACH.
[2020-07-13 05:40] LABS: BASOPHILS ABSOLUTE AUTO 0.03 K/mm3 (0.00-0.23); BASOPHILS PERCENT AUTO 1 % (0-2); EOSINOPHILS ABSOLUTE AUTO 0.18 K/mm3 (0.00-0.68); EOSINOPHILS PERCENT AUTO 3 % (0-6); Hematocrit 37.8 % (33.0-51.0); Hemoglobin 12.3 g/dL (11.5-16.0); IMMATURE GRAN ABSOLUTE AUTO 0.02 K/mm3 (0.00-0.10); IMMATURE GRAN PERCENT AUTO 0 % (0-1); LYMPHOCYTES ABSOLUTE AUTO 2.58 K/mm3 (0.84-5.20); LYMPHOCYTES PERCENT AUTO 41 % (21-46); MONOCYTES ABSOLUTE AUTO 0.76 K/mm3 (0.16-1.47); MONOCYTES PERCENT AUTO 12 % (4-13); Mean Corpuscular HGB 29.4 pg (26.0-34.0); Mean Corpuscular HGB Conc 32.5 g/dL (31.5-36.5); Mean Corpuscular Volume 90 fL (80-100); Mean Platelet Volume 11.6 fL (9.1-12.4); NEUTROPHILS ABSOLUTE AUTO 2.78 K/mm3 (1.96-9.15); NEUTROPHILS PERCENT AUTO 44 % (41-73); Platelet Count 189 K/mm3 (150-400); RDW Coefficient Variation 12.9 % (11.7-14.2); RDW Standard Deviation 42.5 fL (35.1-46.3); Red Blood Cell Count 4.19 M/mm3 (3.80-5.20); White Blood Cell Count 6.35 K/mm3 (4.00-11.30)
[2020-07-13 06:02] LABS: Alanine Aminotransfer (ALT/SGP 18 U/L (12-78); Albumin, Blood 3.1 g/dL (3.4-5.0); Alk Phos 81 U/L (50-136); Anion Gap 7 mmol/L (6-16); Aspartate Aminotrans (AST/SGOT 15 U/L (12-37); Bilirubin, Total 0.5 mg/dL (0.1-1.0); Blood Urea Nitrogen 16 mg/dL (8-24); Bun/Creatinine Ratio 30.8 (12.0-20.0); CO2, Blood 25 mmol/L (21-32); Calcium, Blood 8.6 mg/dL (8.5-10.1); Chloride, Blood 113 mmol/L (98-108); Creatinine, Blood 0.52 mg/dL (0.40-1.00); Globulin, Blood 3.1 g/dL (2.2-4.0); Glomerular Filtration Rate >60 (60-); Glucose, Blood 112 mg/dL (70-99); Phosphorus, Blood 3.2 mg/dL (2.5-4.9); Potassium, Blood 3.4 mmol/L (3.5-5.5); Sodium, Blood 145 mmol/L (136-145); Total Protein, Blood 6.2 g/dL (6.4-8.2)
--- NOTE | 2020-07-13 17:41 | NUR ---
SHIFT SUMMARY NO ACUTE CHANGES T/O SHIFT, A&O TO SELF, CALM AND COOPERATIVE WITH CARE. DROWSY FOR MOST OF THE MORNING. PT RECIEVED A SHOWER TODAY. MEPILEX PAD PLACED ON REDDENED AREA ON BACK AND HEEL PROTECTORS ALSO PLACED ON PT TO PREVENT SKIN BREAKDOWN. PT TOOK ALL PO MEDS TODAY. NO COMPLAINTS OF DISTRESS T/O SHIFT. PT IS CURRENTLY EATING DINNER IN THE HALLWAY WITH STAFF PRESENT.
--- NOTE | 2020-07-13 22:18 | NUR ---
PT IS VERY AGITATED AND THREATENING TO NURSE, ATTEMPTED TO SCRATCH NURSE. PT KEEPS GETTING OUT OF BED AND IS NOT RE-DIRECTABLE. PT IS CONFUSED AND DOES NOT LISTEN TO COMMANDS. HOSPITALIST DR. MEEHAN NOTIFIED, GIL ORDERED AND IS NOW IN PLACE. BED ALARM ON, CALL LIGHT WITHIN REACH, [facility].
--- NOTE | 2020-07-14 19:21 | NUR ---
SHE SLEPT UNTIL LUNCHTIME. SHE THEN TOOK HER MEDS AND ATE LUNCH. SHE REMAINS IN HER GIL VEST FOR FALL PRECAUTIONS. SHE IS IMPULSIVE. SHE IS A FALL RISK. SHE DOESN'T FOLLOW DIRECTIONS WELL. SHE ATE WELL AT DINNER TOO. NO PAIN. NO COMPLAINTS EXCEPT SHE WOULD LIKE TO GO HOME.
--- NOTE | 2020-07-15 06:49 | NUR ---
SHIFT SUMMARY NO ACITE CHANGES THIS SHIFT, NO C/O ANY KIND, SLEPT T/O THE NIGHT & SLEEPING AT THIS TIME, CALL LIGHT IN REACH, WILL CONT TO MONITOR UNTIL REPORT GIVEN TO DAY RN.
[2020-07-15] MEDS ORDERED: Acetaminophen325 M1 PO (11:16)
[2020-07-15] MEDS ORDERED: BISA10S PR (11:16)
[2020-07-15] MEDS ORDERED: DIPH50 PO (11:16)
[2020-07-15] MEDS ORDERED: DOCUZEN 8.6-501 EACH PO (11:19)
[2020-07-15] MEDS ORDERED: HALOPERIDOL10 MG PO (11:20)
[2020-07-15] MEDS ORDERED: FAMO20 PO (11:20)
[2020-07-15] MEDS ORDERED: Ativan1 MG PO (11:21)
[2020-07-15] MEDS ORDERED: LEVSOD25 PO (11:21)
[2020-07-15] MEDS ORDERED: DULCOLAX400 MG/5 M PO (11:21)
[2020-07-15] MEDS ORDERED: ANTIFUNGAL POWD71 GM TOP (11:22)
[2020-07-15] MEDS ORDERED: POTA10T PO (11:22)
[2020-07-15] MEDS ORDERED: MIRALAX17 GM PO (11:22)
[2020-07-15] MEDS ORDERED: SEROQUEL100 MG PO (11:23)
[2020-07-15] MEDS ORDERED: XARELTO10 M1 PO (11:24)
[2020-07-15] MEDS ORDERED: Seroquel Xr50 MG PO (11:24)
[2020-07-15] MEDS ORDERED: TRAM50 PO (11:24)
--- NOTE | 2020-07-15 12:32 | NUR ---
DISCHARGE DISCHARGE PACKET AND HARD COPY SCRIPT SENT WITH [employer] MANAGER. PATIENT TRANSFERED VIA WHEELCHAIR TRANSPORT. BELONGINGS WITH PATIENT. REPORT CALLED TO HEYDI AYALA.
== END 2020-07-15 12:10 | disposition home or self-care (01) | DRG 871 ==
LOC: ER 13:41 → ERHOLD 13:42 → MEDS 13:42
PROVIDERS: Family Medicine; Internal Medicine; Physician Assistant; ADMIT Family Medicine
DX: A41.51 Sepsis due to Escherichia coli [E. coli] (principal); G93.41 Metabolic encephalopathy; N39.0 Urinary tract infection, site not specified; M62.82 Rhabdomyolysis; F02.81 Dementia in other diseases classified elsewhere, unspecified severity, with behavioral disturbance; R65.20 Severe sepsis without septic shock; G30.9 Alzheimer's disease, unspecified; E03.9 Hypothyroidism, unspecified; Z51.5 Encounter for palliative care; K21.9 Gastro-esophageal reflux disease without esophagitis; L89.152 Pressure ulcer of sacral region, stage 2; Z20.822 Contact with and (suspected) exposure to COVID-19; R13.10 Dysphagia, unspecified; E87.6 Hypokalemia; W19.XXXA Unspecified fall, initial encounter; Y92.9 Unspecified place or not applicable; K59.00 Constipation, unspecified; I10 Essential (primary) hypertension; E11.9 Type 2 diabetes mellitus without complications; Z23 Encounter for immunization
CPT/HCPCS: 0241U; 36415; 70450; 71045; 72125; 72128; 73620; 80048; 80053; 80069; 81001; 82550; 82553; 82947; 83036; 83605; 83735; 84100; 84443; 84484; 85014; 85018; 85025; 87040; 87077; 87086; 87186; 92526; 92610; 93005; 93010; 96361; 96365; 96366; 97110; 97116; 97162; 97166; 97530; 97535; 99285-25; A9270; A9270-GY; G0008; J0696; J1200; J1630; J1650; J1956; J2060; J7030; J7040; J7050; Q2038

== ENCOUNTER 2021-01-27 12:39 | Emergency (ER) | payer MEDICARE, OTHER ==
[~2021-01-27] VITALS: Ht 160 cm; Wt 72.6 kg
[~2021-01-27 12:39] MED LIST changes: +ANTIFUNGAL POWD71 GM TOP; +Acetaminophen325 M1 PO; +Ativan1 MG PO; +BISA10S PR; +DIPH50 PO; +DOCUZEN 8.6-501 EACH PO; +DULCOLAX400 MG/5 M PO; +FAMO20 PO; +HALOPERIDOL10 MG PO; +LEVSOD25 PO; +MIRALAX17 GM PO; +POTA10T PO; +SEROQUEL100 MG PO; +Seroquel Xr50 MG PO; +XARELTO10 M1 PO
[2021-01-27 13:13] LABS: BASOPHILS ABSOLUTE AUTO 0.02 K/mm3 (0.00-0.23); BASOPHILS PERCENT AUTO 0 % (0-2); EOSINOPHILS ABSOLUTE AUTO 0.09 K/mm3 (0.00-0.68); EOSINOPHILS PERCENT AUTO 1 % (0-6); Hematocrit 37.4 % (33.0-51.0); Hemoglobin 12.2 g/dL (11.5-16.0); IMMATURE GRAN ABSOLUTE AUTO 0.04 K/mm3 (0.00-0.10); IMMATURE GRAN PERCENT AUTO 1 % (0-1); LYMPHOCYTES ABSOLUTE AUTO 1.69 K/mm3 (0.84-5.20); LYMPHOCYTES PERCENT AUTO 27 % (21-46); MONOCYTES ABSOLUTE AUTO 0.68 K/mm3 (0.16-1.47); MONOCYTES PERCENT AUTO 11 % (4-13); Mean Corpuscular HGB 31.7 pg (26.0-34.0); Mean Corpuscular HGB Conc 32.6 g/dL (31.5-36.5); Mean Corpuscular Volume 97 fL (80-100); Mean Platelet Volume 11.2 fL (9.1-12.4); NEUTROPHILS ABSOLUTE AUTO 3.86 K/mm3 (1.96-9.15); NEUTROPHILS PERCENT AUTO 61 % (41-73); Platelet Count 235 K/mm3 (150-400); RDW Coefficient Variation 13.1 % (11.7-14.2); RDW Standard Deviation 46.5 fL (35.1-46.3); Red Blood Cell Count 3.85 M/mm3 (3.80-5.20); White Blood Cell Count 6.38 K/mm3 (4.00-11.30)
[2021-01-27 13:44] LABS: Alanine Aminotransfer (ALT/SGP 30 U/L (12-78); Albumin, Blood 3.5 g/dL (3.4-5.0); Albumin/Globulin Ratio 1.1 (0.8-1.8); Alk Phos 121 U/L (50-136); Anion Gap 5 mmol/L (6-16); Aspartate Aminotrans (AST/SGOT 19 U/L (12-37); Bilirubin, Total 0.4 mg/dL (0.1-1.0); Blood Urea Nitrogen 30 mg/dL (8-24); Bun/Creatinine Ratio 52.7 (12.0-20.0); CO2, Blood 27 mmol/L (21-32); Calcium, Blood 8.3 mg/dL (8.5-10.1); Chloride, Blood 108 mmol/L (98-108); Creatinine, Blood 0.57 mg/dL (0.40-1.00); Globulin, Blood 3.3 g/dL (2.2-4.0); Glomerular Filtration Rate >60 (60-); Glucose, Blood 123 mg/dL (70-99); Potassium, Blood 3.9 mmol/L (3.5-5.5); Sodium, Blood 140 mmol/L (136-145); Total Protein, Blood 6.8 g/dL (6.4-8.2); Troponin I <0.015 ng/mL (0.000-0.040)
[2021-01-28] MEDS ORDERED: Pepcid20 MG PO (13:08)
== END 2021-01-27 18:55 | disposition home or self-care (01) ==
LOC: ER 12:39
PROVIDERS: Emergency Medicine Emergency Medical Services
DX: R07.1 Chest pain on breathing (principal); F03.90 Unspecified dementia, unspecified severity, without behavioral disturbance, psychotic disturbance, mood disturbance, and anxiety; E11.9 Type 2 diabetes mellitus without complications; I10 Essential (primary) hypertension; K21.9 Gastro-esophageal reflux disease without esophagitis; Z88.6 Allergy status to analgesic agent; Z91.048 Other nonmedicinal substance allergy status; Z88.8 Allergy status to other drugs, medicaments and biological substances; Z79.899 Other long term (current) drug therapy; Y04.2XXA Assault by strike against or bumped into by another person, initial encounter
CPT/HCPCS: 71045; 80053; 83690; 83880; 84484; 85025; 93005; 93010; 99285-25

== ENCOUNTER 2021-01-28 11:10 | Emergency (ER) | payer MEDICARE, OTHER ==
[~2021-01-28] VITALS: Ht 162.6 cm; Wt 68.0 kg
[2021-01-28 12:38] LABS: Troponin I <0.015 ng/mL (0.000-0.040)
[2021-01-28] MEDS ORDERED: Pepcid20 MG PO (13:08)
== END 2021-01-28 15:10 | disposition home or self-care (01) ==
LOC: ER 11:10
PROVIDERS: Emergency Medicine
DX: R07.2 Precordial pain (principal); F03.90 Unspecified dementia, unspecified severity, without behavioral disturbance, psychotic disturbance, mood disturbance, and anxiety; I10 Essential (primary) hypertension; E11.9 Type 2 diabetes mellitus without complications; E03.9 Hypothyroidism, unspecified; D64.9 Anemia, unspecified; Z91.048 Other nonmedicinal substance allergy status; Z88.6 Allergy status to analgesic agent; Z88.8 Allergy status to other drugs, medicaments and biological substances; Z79.899 Other long term (current) drug therapy
CPT/HCPCS: 83690; 84484; 93005; 93010; 99284-25; A9270

== ENCOUNTER 2021-02-19 10:03 | Emergency (ER) | payer MEDICARE, OTHER ==
[~2021-02-19] VITALS: Ht 160 cm; Wt 81.7 kg
[~2021-02-19 10:03] MED LIST changes: +Pepcid20 MG PO
[2021-02-19 10:47] LABS: BASOPHILS ABSOLUTE AUTO 0.03 K/mm3 (0.00-0.23); BASOPHILS PERCENT AUTO 0 % (0-2); EOSINOPHILS PERCENT AUTO 1 % (0-6); IMMATURE GRAN ABSOLUTE AUTO 0.03 K/mm3 (0.00-0.10); IMMATURE GRAN PERCENT AUTO 0 % (0-1); LYMPHOCYTES PERCENT AUTO 25 % (21-46); MONOCYTES ABSOLUTE AUTO 1.09 K/mm3 (0.16-1.47); MONOCYTES PERCENT AUTO 13 % (4-13); Mean Corpuscular HGB 32.3 pg (26.0-34.0); Mean Corpuscular HGB Conc 33.3 g/dL (31.5-36.5); Mean Corpuscular Volume 97 fL (80-100); Mean Platelet Volume 11.1 fL (9.1-12.4); NEUTROPHILS ABSOLUTE AUTO 5.05 K/mm3 (1.96-9.15); NEUTROPHILS PERCENT AUTO 60 % (41-73); Platelet Count 266 K/mm3 (150-400); RDW Coefficient Variation 13.7 % (11.7-14.2); RDW Standard Deviation 49.1 fL (35.1-46.3); Red Blood Cell Count 3.71 M/mm3 (3.80-5.20)
[2021-02-19 10:58] LABS: Anion Gap 5 mmol/L (6-16); Blood Urea Nitrogen 22 mg/dL (8-24); Bun/Creatinine Ratio 37.9 (12.0-20.0); CO2, Blood 26 mmol/L (21-32); Calcium, Blood 8.9 mg/dL (8.5-10.1); Chloride, Blood 108 mmol/L (98-108); Creatinine, Blood 0.58 mg/dL (0.40-1.00); Glomerular Filtration Rate >60 (60-); Glucose, Blood 109 mg/dL (70-99); Potassium, Blood 3.8 mmol/L (3.5-5.5); Sodium, Blood 139 mmol/L (136-145)
[2021-02-19] MEDS ORDERED: CEPH500 PO (11:35)
== END 2021-02-19 17:03 | disposition home or self-care (01) ==
LOC: ER 10:03
PROVIDERS: Emergency Medicine
DX: L03.115 Cellulitis of right lower limb (principal); I10 Essential (primary) hypertension; E11.9 Type 2 diabetes mellitus without complications; E03.9 Hypothyroidism, unspecified; Z91.048 Other nonmedicinal substance allergy status; Z88.6 Allergy status to analgesic agent; Z88.8 Allergy status to other drugs, medicaments and biological substances; Z79.899 Other long term (current) drug therapy
CPT/HCPCS: 80048; 85025; 93971; 99284-25; A9270

== ENCOUNTER 2021-08-05 21:16 | Emergency (ER) | payer MEDICARE, OTHER ==
[~2021-08-05] VITALS: Ht 160 cm; Wt 49.9 kg
[~2021-08-05 21:16] MED LIST changes: +ACET500 PO; -Acetaminophen325 M1 PO; -Ativan1 MG PO; +LORA.5 PO; +QUET200 PO; -SEROQUEL100 MG PO
[2021-12-16] MEDS ORDERED: Seroquel Xr50 MG PO (16:52)
[2021-12-16] MEDS ORDERED: LEVFLO500 PO (17:56)
== END 2021-08-06 02:36 | disposition home or self-care (01) ==
LOC: ER 21:16
DX: S09.90XA Unspecified injury of head, initial encounter (principal); S70.01XA Contusion of right hip, initial encounter; M25.511 Pain in right shoulder; E11.9 Type 2 diabetes mellitus without complications; I10 Essential (primary) hypertension; E03.9 Hypothyroidism, unspecified; Z91.048 Other nonmedicinal substance allergy status; Z88.6 Allergy status to analgesic agent; Z88.8 Allergy status to other drugs, medicaments and biological substances; Z79.899 Other long term (current) drug therapy; W19.XXXA Unspecified fall, initial encounter
CPT/HCPCS: 70450; 72125; 72170; 73030; 73090; 73120; 99284-25

== ENCOUNTER 2021-09-23 21:01 | Emergency (ER) | payer MEDICARE, OTHER ==
[~2021-09-23] VITALS: Ht 160 cm; Wt 49.9 kg
[~2021-09-23 21:01] MED LIST changes: -ACET500 PO; +Acetaminophen325 M1 PO; +Ativan1 MG PO; -LORA.5 PO; -QUET200 PO; +SEROQUEL100 MG PO
== END 2021-09-24 02:55 | disposition home or self-care (01) ==
LOC: ER 21:01
DX: M25.562 Pain in left knee (principal); E11.9 Type 2 diabetes mellitus without complications; I10 Essential (primary) hypertension; Z91.81 History of falling; Z88.8 Allergy status to other drugs, medicaments and biological substances; Z91.048 Other nonmedicinal substance allergy status; Z79.899 Other long term (current) drug therapy
CPT/HCPCS: 73562-LT; 99283-25

== ENCOUNTER 2021-09-26 12:45 | Emergency (ER) | payer MEDICARE, OTHER ==
[~2021-09-26] VITALS: Ht 160 cm; Wt 49.9 kg
[~2021-09-26 12:45] MED LIST changes: +ACET500 PO; -Acetaminophen325 M1 PO; -Ativan1 MG PO; +LORA.5 PO; +QUET200 PO; -SEROQUEL100 MG PO
[2021-09-26] MEDS ORDERED: SERT50 PO (13:04)
[2021-09-26] MEDS ORDERED: Acetaminophen325 M1 PO (13:06)
[2021-09-26] MEDS ORDERED: Fleet Enema132 ML PR (13:07)
[2021-09-26] MEDS ORDERED: LOPE2C PO (13:08)
== END 2021-09-26 15:17 | disposition home or self-care (01) ==
LOC: ER 12:45
DX: S60.211A Contusion of right wrist, initial encounter (principal); E11.9 Type 2 diabetes mellitus without complications; I10 Essential (primary) hypertension; E03.9 Hypothyroidism, unspecified; F03.90 Unspecified dementia, unspecified severity, without behavioral disturbance, psychotic disturbance, mood disturbance, and anxiety; Z87.891 Personal history of nicotine dependence; W19.XXXA Unspecified fall, initial encounter; Y92.009 Unspecified place in unspecified non-institutional (private) residence as the place of occurrence of the external cause; Z88.6 Allergy status to analgesic agent; Z88.4 Allergy status to anesthetic agent; Z88.8 Allergy status to other drugs, medicaments and biological substances; Z91.09 Other allergy status, other than to drugs and biological substances; Z79.899 Other long term (current) drug therapy
CPT/HCPCS: 73110

== ENCOUNTER 2021-12-03 10:58 | Emergency (ER) | payer MEDICARE, OTHER ==
[~2021-12-03] VITALS: Ht 175.3 cm; Wt 72.1 kg
[~2021-12-03 10:58] MED LIST changes: +Acetaminophen325 M1 PO; +Fleet Enema132 ML PR; +LOPE2C PO; +SERT50 PO
[2021-12-03 11:44] LABS: Source, Urine Straight Cath
[2021-12-03 11:51] LABS: Appearance, Urine Cloudy (Clear); Bilirubin, Urine Neg (Neg); Blood, Urine 3+ (Neg); Color, Urine Yellow (P-Yellow); Glucose Qualitative, Urine Neg (Neg); Ketones, Urine Neg (Neg); Leukocyte Esterase, Urine 3+ (Neg); Nitrite, Urine Pos (Neg); Protein, Urine 3+ (Neg); Urobilinogen, Urine 1+ (Normal)
[2021-12-03 11:59] LABS: White Blood Cells, Urine 50-100 /hpf (0-5)
[2021-12-03 12:00] LABS: Bacteria Many /hpf; Squamous Epithelial Cells Rare /hpf (Few)
[2021-12-03] MEDS ORDERED: CEFD300 PO (12:21)
[2021-12-16] MEDS ORDERED: Seroquel Xr50 MG PO (16:52)
[2021-12-16] MEDS ORDERED: LEVFLO500 PO (17:56)
== END 2021-12-03 13:30 | disposition home or self-care (01) ==
LOC: ER 10:58
PROVIDERS: Student in an Organized Health Care Education/Training Program
DX: M25.551 Pain in right hip (principal); N39.0 Urinary tract infection, site not specified; E11.9 Type 2 diabetes mellitus without complications; I10 Essential (primary) hypertension; E03.9 Hypothyroidism, unspecified; F03.90 Unspecified dementia, unspecified severity, without behavioral disturbance, psychotic disturbance, mood disturbance, and anxiety; W19.XXXA Unspecified fall, initial encounter; Z91.09 Other allergy status, other than to drugs and biological substances; Z88.8 Allergy status to other drugs, medicaments and biological substances; Z79.899 Other long term (current) drug therapy
CPT/HCPCS: 51701; 73522; 81001; 99284-25; A9270